=== PATIENT | male | born 1960 | race Caucasian/White ===

== ENCOUNTER 2024-11-02 12:06 | Emergency (ER) | payer MEDICAID, SELFPAY ==
[2024-11-02 12:08] VITALS: BMI 28.0
[2024-11-02 12:46] VITALS: BP 189/99; PULSE 114; RESP 18; TEMP 37.2; O2SAT 96
--- NOTE | 2024-11-02 12:46 | PD.EDRME ---
Rapid Medical Screening Exam RME Arrival date/time: 11/02/24 12:06 64 yo m present to Ed for c/o of left leg/foot swelling/pain for 2 weeks I have greeted and performed a focused initial assessment of this patient. A comprehensive ED assessment and evaluation of the patient, analysis of all test results, and completion of the medical decision making process will be conducted by additional ED providers. Chief Complaint: General Adult/Misc Complain Time Seen by Provider: 11/02/24 12:10
--- NOTE | 2024-11-02 12:47 | XR_ITS ---
Examination: Duplex scan of the lower extremity, unilateral left complete Date and time of exam: November 02, 2024 1329 hrs. Indications: Nonhealing wounds on the leg 3 weeks gas Technique: Duplex scan of the extremity veins using B-mode/grayscale imaging and Doppler spectral analysis and color flow Attention is directed to internal echogenicity, compression and augmentation involving these veins, color flow assessment, spectral analysis Findings: Major deep venous structures in the extremity demonstrate normal course and caliber. There is no evidence of deep vein thrombosis. Normal color flow and spectral analysis Impression: Negative for DVT..
--- NOTE | 2024-11-02 12:47 | XR_ITS ---
Examination: Foot, left, 3 views Technique: AP, oblique, lateral views foot, 3 views Date and time of exam: November 02, 2024 1301 hrs. Indications: Left leg pain and swelling beginning 2 weeks ago. Findings: Prominent osteopenia Moderate osteoarthritis first metatarsophalangeal joint No fracture No roberto cortical bone destruction No opaque foreign body Impression: No roberto cortical bone destruction Diffuse soft tissue swelling about the foot
[2024-11-02 13:05] LABS: Lactate (Lactic Acid) 1.8 mMol/L (0.4-2.0)
[2024-11-02 13:11] LABS: Basophils # (Auto) 0.1 Thou/mm3 (0.0-0.2); Basophils % (Auto) 1 % (0-2.5); Eosinophils # (Auto) 0.1 Thou/mm3 (0.0-0.5); Eosinophils % (Auto) 1 % (0-10); Hematocrit 53.3 % (41.0-53.0); Hemoglobin 18.7 g/dL (13.5-16.0); Immature Granulocytes % (Auto) 0 % (0-0); Immature Granulocytes Auto 0.02 Thou/mm3 (0.00-0.00); Lymphocytes # (Auto) 1.8 Thou/mm3 (1.0-4.8); Lymphocytes % (Auto) 18 % (10-50); Mean Corpuscular HGB Conc 35.1 g/dl (31.0-37.0); Mean Corpuscular Hemoglobin 31.1 pg (25.0-35.0); Mean Corpuscular Volume 89 fL (80-100); Monocytes # (Auto) 0.8 Thou/mm3 (0.0-0.8); Monocytes % (Auto) 8 % (0-12); Neutrophils # (Auto) 7.4 Thou/mm3 (1.8-7.7); Neutrophils % (Auto) 73 % (37-80); Nucleated Red Blood Cell % 0 /100 WBC (0); Platelet Count 418 Thou/mm3 (140-440); RDW Standard Deviation 39.7 fL (35.1-43.9); Red Blood Count 6.01 Miln/mm3 (4.50-5.90); White Blood Count 10.2 Thou/mm3 (3.8-10.6)
[2024-11-02 13:28] LABS: Prothrombin Time 10.6 Seconds (9.0-12.2)
[2024-11-02 13:32] LABS: Sed Rate (ESR) 13 mm/hr (0-20)
[2024-11-02 13:48] LABS: Alanine Aminotransferase 31 U/L (10-49); Albumin, Serum 4.7 gm/dL (3.4-4.8); Albumin/Globulin Ratio 1.9 (1.2-2.2); Alkaline Phosphatase 56 U/L (46-116); Anion Gap 8 (7-16); Aspartate Amino Transferase 24 U/L (0-34); BUN/Creatinine Ratio 10 Ratio (12-20); Bilirubin,Total 0.4 mg/dL (0.3-1.2); Blood Urea Nitrogen 10 mg/dL (9-23); C-Reactive Protein < 0.4 mg/dL (0.0-0.9); Calcium 9.8 mg/dL (8.3-10.6); Calcium (Corrected) 9.8 mg/dL (8.5-10.1); Carbon Dioxide 25.7 mMol/L (20.0-31.0); Chloride 108 mMol/L (98-107); Estimated Creatinine Clearance 83.3 mL/min (>60); Globulin 2.5 gm/dL (2.3-3.5); Glucose 129 mg/dL (74-106); Osmolality,Calculated 284 (275-295); Potassium 4.4 mMol/L (3.4-5.1); Procalcitonin 0.06 ng/ml (0.0-0.49); Sodium 142 mMol/L (136-145); Total Protein 7.2 gm/dL (5.7-8.2); eGFR > 60 See Note
--- NOTE | 2024-11-02 13:53 | PD.EDADULT ---
ED General RME/HPI General Chief complaint: General Adult/Misc Complain Stated complaint: L) LEG W/ NERVE PAIN, SWELLING, REDNESS UP LEG Time Seen by Provider: 11/02/24 12:10 Arrival date/time: 11/02/24 12:06 RME / HPI RME / HPI narrative: Patient is a 64 years old male with no past medical history presented to the ED complaining of left foot swelling for 2 weeks. 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 He never walks barefoot. He denies any animal or insect bite. He denies any pain, changes in sensation, fever, chills. He also developed 2 small wounds on both sides of his foot which are tender to touch but there was no drainage. He developed this swelling all of the sudden and did not look for medical attention due to lack of symptoms. The swelling has worsened and he was not able to wear his shoe anymore. He does not have PCP and haven't seen a doctor for many years. He is active smoker for many years. Related Data Previous Rx's ?Medication ?Instructions ?Recorded cephalexin 500 mg capsule 500 mg PO QID cellulitis 5 days 11/02/24 #20 caps losartan 25 mg tablet 25 mg PO QDAY #30 tabs 11/02/24 Allergies Allergy/AdvReac Type Severity Reaction Status Date / Time SEA FOOD Allergy Uncoded 11/02/24 12:12 Review of Systems Review of Systems Systems Reviewed: All systems reviewed, normal except as documented ED Exam Narrative Physical exam: Gen: Well-developed and well-nourished male. HEENT: NCAT, PERRLA, EOMI, MMM, anicteric conjunctivae. CVS: normal S1 and S2. RRR. No M/R/G. Resp: CTA B/L. No rhonchi, rales, crackles or wheezing. Abd: soft, non-tender, non-distended. BS+ in all 4 quadrants. MSK: Good ROM in BUE & BLE. No edema or rash. Left foot appears swollen and erythematose, non-tender. 2 dry wounds on the side of his foot close to toes are tender to touch and no drainage on palpation. Neuro: CN II-XII grossly intact. Strength 5/5 in BUE & BLE. Alert and oriented x3. Psych: appropriate mood and affect. Course Quality Measures none Orders Category Date Time Status US venous doppler LE LT Stat Exams 11/02/24 12:47 Completed XR foot comp LT min 3V Stat Exams 11/02/24 12:47 Completed Blood Culture (Lab) Stat Lab 11/02/24 12:57 Received CBC Stat Lab 11/02/24 12:54 Completed CMP [Comprehensive Metabolic Panel] Stat Lab 11/02/24 12:54 Completed CRP [C-Reactive Protein] Stat Lab 11/02/24 12:54 Completed ESR [Sed Rate (ESR)] Stat Lab 11/02/24 12:54 Completed INR [Prothrombin Time with INR] Stat Lab 11/02/24 12:54 Completed Lactic Acid [Lactate (Lactic Acid)] Stat Lab 11/02/24 12:54 Completed Procalcitonin Stat Lab 11/02/24 12:54 Completed Vital Signs Vital signs: Vital Signs Temperature 99.0 F 11/02/24 12:46 Pulse Rate 114 H 11/02/24 12:46 Respiratory Rate 18 11/02/24 12:46 Blood Pressure 189/99 H 11/02/24 12:46 Pulse Oximetry (%) 96 11/02/24 12:46 Oxygen Delivery Method Room Air 11/02/24 12:46 MDM Patient data External records reviewed:: None Clinical information provided by:: patient Social determinants that could affect healthcare access:: none Patient has the following chronic illnesses:: none How is presenting disease/condition affected by chronic disease/condition?: no chronic disease Evaluation data The following diagnostics were reviewed and interpreted by me:: lab results and radiology exam(s) Lab and/or radiology exams considered but not ordered:: foot CT Interpretation Summary: Fibndings consistent with cellulites, no DVT. Medications Medications considered but not ordered:: none Medication administrations:: none Consultations Consultation(s) initiated? (list below): No Diagnosis Differential Diagnosis ED Complaint MDM: DVT, cellulitis, fungal infection, PAD Most likely diagnosis given after review of the tests above:: Cellulitis Admission Indicated Admission indicated?: not indicated Explain why admission is indicated or not indicated:: Patient is not septic and has localized disease in his foot, does not need to be admitted. Admission Request Was there a request for admission?: No Disposition Plan Disposition Plan: Discharge Discharge Attestation Discharge Attestation: The patient and all family members were given an opportunity to ask questions and understood the discharge instructions. Discharge instructions specifically effects, indications for sooner follow up or return to the emergency department, and the expected course of current diagnosis. Patient condition: Stable Medical Decision Making MDM Narrative MDM Narrative: Patient has local swelling and inflammation likely due to cellulites. Patient will need antibiotic treatment outpatient. He will also need to establish care with PCP since he was seen by the MD for many years. Patient was found to have significantly elevated BP and does not take any medications. His blood pressure stayed elevated during all ED course, highest 200/113 and lowest 151/99. We will start him on losartan. Differential Diagnosis Differential Diagnosis: DVT, cellulitis, fungal infection, PAD Lab Data 11/02/24 12:54 11/02/24 12:54 Labs: Lab Results 11/02/24 Range/Units 12:54 WBC 10.2 (3.8-10.6) Thou/mm3 RBC 6.01 H (4.50-5.90) Miln/mm3 Hgb 18.7 H* (13.5-16.0) g/dL Hct 53.3 H (41.0-53.0) % MCV 89 (80-100) fL MCH 31.1 (25.0-35.0) pg MCHC 35.1 (31.0-37.0) g/dl RDW Std Deviation 39.7 (35.1-43.9) fL Plt Count 418 (140-440) Thou/mm3 Neut % (Auto) 73 (37-80) % Lymph % (Auto) 18 (10-50) % [place] % (Auto) 8 (0-12) % Eos % (Auto) 1 (0-10) % Baso % (Auto) 1 (0-2.5) % Neut # (Auto) 7.4 (1.8-7.7) Thou/mm3 Lymph # (Auto) 1.8 (1.0-4.8) Thou/mm3 [place] # (Auto) 0.8 (0.0-0.8) Thou/mm3 Eos # (Auto) 0.1 (0.0-0.5) Thou/mm3 Baso # (Auto) 0.1 (0.0-0.2) Thou/mm3 Immature Gran # (Auto) 0.02 H (0.00-0.00) Thou/mm3 Absolute Nucleated RBC 0.00 (0.00-0.00) Thou/mm3 Immature Gran % 0 (0-0) % Nucleated RBC % 0 (0) /100 WBC ESR 13 (0-20) mm/hr PT 10.6 (9.0-12.2) Seconds INR 1.0 (0.9-1.3) Sodium 142 (136-145) mMol/L Potassium 4.4 (3.4-5.1) mMol/L Chloride 108 H (98-107) mMol/L Carbon Dioxide 25.7 (20.0-31.0) mMol/L Anion Gap 8 (7-16) BUN 10 (9-23) mg/dL Creatinine 1.0 (0.6-1.3) mg/dL Estim Creat Clear Calc 83.3 (>60) mL/min eGFR > 60 (60 - ) See Note BUN/Creatinine Ratio 10 L (12-20) Ratio Glucose 129 H (74-106) mg/dL Calculated Osmolality 284 (275-295) Lactic Acid 1.8 (0.4-2.0) mMol/L Calcium 9.8 (8.3-10.6) mg/dL Corrected Calcium 9.8 (8.5-10.1) mg/dL Total Bilirubin 0.4 (0.3-1.2) mg/dL AST 24 (0-34) U/L ALT 31 (10-49) U/L Alkaline Phosphatase 56 (46-116) U/L C-Reactive Prot, Quant < 0.4 (0.0-0.9) mg/dL Total Protein 7.2 (5.7-8.2) gm/dL Albumin 4.7 (3.4-4.8) gm/dL Globulin 2.5 (2.3-3.5) gm/dL Albumin/Globulin Ratio 1.9 (1.2-2.2) Procalcitonin 0.06 (0.0-0.49) ng/ml Discharge Plan Plan Patient Disposition: HOME (Self Care) Patient condition on transfer: Stable Prescriptions/Referrals Prescriptions/Med Rec: New cephalexin 500 mg capsule 500 mg PO QID 5 Days Qty: 20 0RF losartan 25 mg tablet 25 mg PO QDAY Qty: 30 0RF Referrals: No Primary/Family,Physician [Primary Care Provider] - In 1 week Problem List Clinical Impression: Cellulitis Patient/Caregiver Discharge Instructions Education Materials: ED Cellulitis Additional Instructions: Take cephalexin 500 mg 4 times a day for 5 days. Start taking losartan 25 mg daily for hypertension. Check your blood pressure at home at least daily and record it. Follow up with PCP within 2 weeks. If you don't have a PCP, you can make an appointment at the [facility]: [address] [place] [phone] Return to the ED if symptoms recur or worsen. Print Language: Japanese Stand Alone Forms: Sara Award Info., Patient Portal Info Letter
[2024-11-02 14:15] VITALS: BP 118/112; BP 200/113; PULSE 114; RESP 18; TEMP 36.6; O2SAT 95
[2024-11-02 15:44] VITALS: BP 167/118; PULSE 101; RESP 16; TEMP 36.9; O2SAT 94
[2024-11-02 16:39] VITALS: BP 151/99; PULSE 99; RESP 18; TEMP 36.6; O2SAT 97
== END 2024-11-02 16:40 | disposition home or self-care (01) ==
PROVIDERS: Physician Assistant; Emergency Provider Emergency Medicine
DX: L03.116 Cellulitis of left lower limb (principal)
CPT/HCPCS: 36415; 73630; 80053; 83605; 84145; 85025; 85610; 85652; 86140; 87040; 93971; 99284

== ENCOUNTER 2024-11-07 11:01 | Outpatient (AMB) | payer MEDICAID, SELFPAY ==
[2024-11-07 11:10] VITALS: BP 177/102; PULSE 118; RESP 16; TEMP 36.7; O2SAT 95; BMI 29.1
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
== END 2024-11-07 11:57 | disposition home or self-care (01) ==
LOC: HODAHC 11:01
PROVIDERS: Supervising Provider Internal Medicine; Visit Provider Student in an Organized Health Care Education/Training Program
DX: L03.116 Cellulitis of left lower limb (principal); L02.612 Cutaneous abscess of left foot; I10 Essential (primary) hypertension; F17.210 Nicotine dependence, cigarettes, uncomplicated; Z71.6 Tobacco abuse counseling
CPT/HCPCS: 99213; G0463

== ENCOUNTER 2024-11-14 10:29 | Outpatient (AMB) | payer MEDICAID, SELFPAY ==
[2024-11-14 10:46] VITALS: BP 154/92; PULSE 102; RESP 16; TEMP 37.1; O2SAT 95; BMI 29.0
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
== END 2024-11-14 11:30 | disposition home or self-care (01) ==
LOC: HODAHC 10:29
PROVIDERS: PCP Student in an Organized Health Care Education/Training Program; Referring Provider Student in an Organized Health Care Education/Training Program; Supervising Provider Internal Medicine; Visit Provider Student in an Organized Health Care Education/Training Program
DX: L03.116 Cellulitis of left lower limb (principal); L02.612 Cutaneous abscess of left foot; S91.352A Open bite, left foot, initial encounter; W55.01XA Bitten by cat, initial encounter; I10 Essential (primary) hypertension; F17.200 Nicotine dependence, unspecified, uncomplicated; Z71.6 Tobacco abuse counseling
CPT/HCPCS: 99213; G0463

== ENCOUNTER 2024-11-14 11:41 | Inpatient (IN) | payer MEDICAID, SELFPAY ==
[2024-11-14] VITALS (9 sets, daily range): BP systolic 154–192; BP diastolic 81–103; PULSE 71–115; RESP 14–18; TEMP 36.1–36.8; O2SAT 94–98; BMI 26.5; BMI 28.3
--- NOTE | 2024-11-14 11:46 | XR_ITS ---
EXAMINATION: XR foot comp LT min 3V ORDERING PROVIDER: Neto Benitez NP HISTORY: ck for signs of osteo TECHNIQUE: 3 radiographs of the left foot were obtained. COMPARISON: 11/02/2024, left foot radiographs. FINDINGS: No acute fracture or dislocation. Moderate degenerative changes great toe metatarsophalangeal joint again seen with joint space narrowing and subchondral sclerosis/cyst formation. Worsened moderate to severe dorsal forefoot soft tissue swelling. No subcutaneous emphysema. No radiopaque foreign object. IMPRESSION: Progressed soft tissue tissue swelling without acute bony findings. MR versus bone scan available as clinically indicated.
--- NOTE | 2024-11-14 11:46 | XR_ITS ---
EXAMINATION: US venous doppler LE LT HISTORY: Left foot pain and swelling x5 weeks. COMPARISON: 11/02/2024, lower extremity venous duplex. FINDINGS: Jacques scale, color doppler, and spectral waveforms of the left lower extremity veins. The imaged veins are unremarkable without evidence of internal thrombus. Spectral Doppler imaging demonstrates normal wave forms. The overlying soft tissues are unremarkable. Atherosclerotic plaque seen in the popliteal artery. IMPRESSION: Negative for left lower extremity deep venous thrombosis.
--- NOTE | 2024-11-14 11:54 | PD.EDRME ---
Rapid Medical Screening Exam [facility] Arrival date/time: 11/14/24 11:41 CC: Infected left foot HPI patient had a history of an infected foot prior to this and then 2 days ago his cat scratched his foot this morning the patient stated the foot now has become red and irritated. Patient is referred from resident clinic for concern that there may be early osteomyelitis. Recommending workup for the foot. Chief Complaint: Skin/Abscess/Foreign Body Time Seen by Provider: 11/14/24 11:46 Vital signs: Vital Signs Temperature 98.3 F 11/14/24 11:49 Pulse Rate 115 H 11/14/24 11:49 Respiratory Rate 17 11/14/24 11:49 Blood Pressure 160/93 H 11/14/24 11:49 Pulse Oximetry (%) 96 11/14/24 11:49 Oxygen Delivery Method Room Air 11/14/24 11:49
[2024-11-14 12:27] LABS: Basophils # (Auto) 0.1 Thou/mm3 (0.0-0.2); Basophils % (Auto) 1 % (0-2.5); Eosinophils # (Auto) 0.1 Thou/mm3 (0.0-0.5); Eosinophils % (Auto) 1 % (0-10); Hematocrit 51.5 % (41.0-53.0); Immature Granulocytes % (Auto) 0 % (0-0); Immature Granulocytes Auto 0.02 Thou/mm3 (0.00-0.00); Lymphocytes # (Auto) 2.1 Thou/mm3 (1.0-4.8); Lymphocytes % (Auto) 23 % (10-50); Mean Corpuscular Volume 89 fL (80-100); Monocytes # (Auto) 0.7 Thou/mm3 (0.0-0.8); Monocytes % (Auto) 8 % (0-12); Neutrophils # (Auto) 5.9 Thou/mm3 (1.8-7.7); Neutrophils % (Auto) 66 % (37-80); Nucleated Red Blood Cell % 0 /100 WBC (0); Platelet Count 414 Thou/mm3 (140-440); RDW Standard Deviation 39.8 fL (35.1-43.9); Red Blood Count 5.81 Miln/mm3 (4.50-5.90); White Blood Count 8.9 Thou/mm3 (3.8-10.6)
[2024-11-14 12:44] LABS: Sed Rate (ESR) 12 mm/hr (0-20)
[2024-11-14 13:05] LABS: Alanine Aminotransferase 39 U/L (10-49); Albumin, Serum 4.4 gm/dL (3.4-4.8); Albumin/Globulin Ratio 1.8 (1.2-2.2); Alkaline Phosphatase 55 U/L (46-116); Anion Gap 9 (7-16); Aspartate Amino Transferase 23 U/L (0-34); BUN/Creatinine Ratio 11 Ratio (12-20); Bilirubin,Total 0.4 mg/dL (0.3-1.2); Blood Urea Nitrogen 11 mg/dL (9-23); C-Reactive Protein < 0.5 mg/dL (0.0-0.9); Calcium 9.4 mg/dL (8.3-10.6); Calcium (Corrected) 9.4 mg/dL (8.5-10.1); Carbon Dioxide 24.6 mMol/L (20.0-31.0); Chloride 107 mMol/L (98-107); Globulin 2.5 gm/dL (2.3-3.5); Glucose 108 mg/dL (74-106); Osmolality,Calculated 281 (275-295); Potassium 3.5 mMol/L (3.4-5.1); Procalcitonin 0.08 ng/ml (0.0-0.49); Sodium 141 mMol/L (136-145); Total Protein 6.9 gm/dL (5.7-8.2); eGFR > 60 See Note
--- NOTE | 2024-11-14 14:02 | PD.EDEXREM ---
ED Extremity Problem RME/HPI General Chief complaint: Skin/Abscess/Foreign Body Stated complaint: SWELLING TO LEFT FOOT Time Seen by Provider: 11/14/24 11:46 Arrival date/time: 11/14/24 11:41 Limitations: no limitations RME / HPI RME / HPI Narrative: 11/14/24 11:41 CC: Infected left foot HPI patient had a history of an infected foot prior to this and then 2 days ago his cat scratched his foot this morning the patient stated the foot now has become red and irritated. Patient is referred from resident clinic for concern that there may be early osteomyelitis. Recommending workup for the foot. DR. VELAZCO MAIN ED EVALUATION: 64 year old male with history of hypertension presents to the ED for left foot swelling and pain. Patient reports about 1 month ago he slipped and fell while walking in his home. States he initially did not seek medical attention until 2 weeks ago when he noted redness and swelling. Was evaluated here 11/02/2024 where the work-up was negative for DVT and discharged home diagnosed with cellulitis, prescribed 5 day course of Cephalexin. States he completed the antibiotics with no improvement and followed up with PCP on 11/07/2024 where he was started on Cephalexin and Doxycycline for 7 more days. Patient states the pain, redness, and swelling have worsened in spite of taking multiple rounds of antibiotics. Additionally reported his cat scratched one of his toes 2 days ago. Denies any fevers, chills, or pain to his calf. No hx of DVT. Related Data Previous Rx's ?Medication ?Instructions ?Recorded losartan 25 mg tablet 25 mg PO QDAY #30 tabs 11/02/24 doxycycline hyclate 100 mg capsule 100 mg PO BID #14 caps 11/07/24 Allergies Allergy/AdvReac Type Severity Reaction Status Date / Time SEA FOOD Allergy Uncoded 11/14/24 11:46 Review of Systems Review of Systems Narrative Review of Systems: GEN: No fever, no chills, no weight loss EYES: No discharge, no visual changes, no pain HEENT: No ear pain, no congestion, no sore throat PULM: No shortness of breath, no cough, no congestion CV: No chest pain, no dyspnea on exertion, no palpitations GI: No nausea, no vomiting, no diarrhea, no pain, no constipation : No frequency, no urgency, no dysuria MUSC/SKEL: +left foot redness/pain/swelling, no back pain SKIN: +left foot redness NEURO: No weakness, no headache Past Medical History Past Medical History CARDIAC: Negative Congestive Heart Failure RESPIRATORY: Negative Chronic Obstructive Pulmonary Disease (COPD) GENITOURINARY: Negative Renal Disease ENDOCRINE: Negative Diabetes Mellitus Type 1 or Diabetes Mellitus Type 2 Social History SMOKING STATUS: Heavy (> 1 pack/day) ED Exam General Limitations: Present no limitations General appearance: Present alert and in no apparent distress Head Head exam: Present atraumatic, normocephalic and normal inspection Eye Eye exam: Present normal appearance and EOMI ENT ENT exam: Present normal exam, normal oropharynx and mucous membranes moist Neck Neck exam: Present normal inspection, full ROM and trachea midline Chest Chest inspection: Present normal inspection and symmetric chest wall rise Respiratory Respiratory exam: Present normal lung sounds bilaterally Cardiovascular Cardiovascular exam: Present regular rate, normal rhythm and normal heart sounds Abdominal Exam Abdominal exam: Present soft and normal bowel sounds Extremities Exam Extremities exam: Present full ROM and other (Left leg with mild erythema about half way up to the knee, no tenderness to palpation, negative Sue's sign, bright red erythema 2+ edema left foot, scabs to medial and distal sides of foot that is dry (there could be exudate under scab but not obvious), scratches to 3rd 4th toes (cat scratch)) Back Exam Back exam: Present normal inspection and full ROM Neurological Exam Neurological exam: Present alert, oriented X3 and CN II-XII intact Psychiatric Psychiatric exam: Present normal affect and normal mood Skin Skin exam: Present warm, dry and intact Course Quality Measures none Orders Category Date Time Status COVID-19 Screening Questionnaire NOW Care 11/14/24 15:24 Active Decision to Admit X1 Care 11/14/24 15:24 Active Insert IV NOW Care 11/14/24 14:42 Active Saline [Insert IV] NOW Care 11/14/24 11:46 Active Wound Care X1 Care 11/14/24 14:40 Active EKG (ED Only) Stat Exams 11/14/24 14:41 Stop Req US venous doppler LE LT Stat Exams 11/14/24 11:46 Completed XR foot comp LT min 3V Stat Exams 11/14/24 11:46 Completed Blood Culture (Lab) Stat Lab 11/14/24 14:47 Ordered CBC Stat Lab 11/14/24 12:11 Completed CMP [Comprehensive Metabolic Panel] Stat Lab 11/14/24 12:11 Completed CRP [C-Reactive Protein] Stat Lab 11/14/24 12:11 Completed ESR [Sed Rate (ESR)] Stat Lab 11/14/24 12:11 Completed Lactic Acid [Lactate (Lactic Acid)] Stat Lab 11/14/24 12:11 Completed Partial Thromboplastin Time Stat Lab 11/14/24 12:11 Completed Procalcitonin Stat Lab 11/14/24 12:11 Completed Prothrombin Time with INR Stat Lab 11/14/24 12:11 Completed Urinalysis Stat Lab 11/14/24 14:41 Ordered Wound Culture and Gram Stain Stat Lab 11/14/24 14:43 Ordered Ketorolac Inj [Toradol Inj] Med 11/14/24 14:40 Discontinued 30 mg IVP X1 ONE Piper/Tazo 3.375 gm Premix [Zosyn] Med 11/14/24 14:47 Discontinued 3.375 gm in 50 ml IV X1 Sodium Chloride 0.9% 1000 ml [Ns] 1,000 ml Med 11/14/24 14:40 Pending IV 100 mls/hr Vancomycin/Ns 1 gm Ivpb 200 ml Med 11/14/24 14:40 Active IV X1 Vital Signs Vital signs: Vital Signs Temperature 98.3 F 11/14/24 11:49 Pulse Rate 115 H 11/14/24 11:49 Respiratory Rate 17 11/14/24 11:49 Blood Pressure 160/93 H 11/14/24 11:49 Pulse Oximetry (%) 96 11/14/24 11:49 Oxygen Delivery Method Room Air 11/14/24 11:49 Pulse ox is 96% on room air which is adequate. Extremity Problem MDM Narrative MDM Narrative:: Martha Gordon am scribing for and in the presence of Dr. Velazco. Patient data External records reviewed:: [facility] previous records (I reviewed ED visit on 11/02/24 and outpatient pcp visits on 11/07/24 and 11/14/2024 ) Clinical information provided by:: patient Social determinants that could affect healthcare access:: none Patient has the following chronic illnesses:: hypertension How is presenting disease/condition affected by chronic disease/condition?: uneffected by Evaluation data The following diagnostics were reviewed and interpreted by me:: lab results and radiology exam(s) Lab and/or radiology exams considered but not ordered:: None Interpretation Summary: Ordering Physician: Neto Benitez NP Date of Service: 11/14/24 Procedure(s): XR foot comp LT min 3V Accession Number(s): [id number] cc: Alejo Willett MD; Neto Benitez NP; Kevin Sun MD~ EXAMINATION: XR foot comp LT min 3V ORDERING PROVIDER: Neto Benitez NP HISTORY: ck for signs of osteo TECHNIQUE: 3 radiographs of the left foot were obtained. COMPARISON: 11/02/2024, left foot radiographs. FINDINGS: No acute fracture or dislocation. Moderate degenerative changes great toe metatarsophalangeal joint again seen with joint space narrowing and subchondral sclerosis/cyst formation. Worsened moderate to severe dorsal forefoot soft tissue swelling. No subcutaneous emphysema. No radiopaque foreign object. IMPRESSION: Progressed soft tissue tissue swelling without acute bony findings. MR versus bone scan available as clinically indicated. Dictated By: Alejo Willett MD Signed By: <Electronically signed by Alejo Willett MD in OV> 11/14/24 1241 Ordering Physician: Neto Benitez NP Date of Service: 11/14/24 Procedure(s): US venous doppler LE LT Accession Number(s): [id number] cc: Alejo Willett MD; Neto Benitez NP; Kevin Sun MD~ EXAMINATION: US venous doppler LE LT HISTORY: Left foot pain and swelling x5 weeks. COMPARISON: 11/02/2024, lower extremity venous duplex. FINDINGS: Jacques scale, color doppler, and spectral waveforms of the left lower extremity veins. The imaged veins are unremarkable without evidence of internal thrombus. Spectral Doppler imaging demonstrates normal wave forms. The overlying soft tissues are unremarkable. Atherosclerotic plaque seen in the popliteal artery. IMPRESSION: Negative for left lower extremity deep venous thrombosis. Dictated By: Alejo Willett MD Signed By: <Electronically signed by Alejo Willett MD in OV> 11/14/24 4209 Medications / Prescriptions Medications or Prescriptions considered but not ordered:: None Medication administrations:: Medication Administration History Sodium Chloride (Ns) 1,000 mls @ 100 mls/hr IV .Q10H ONE Vancomycin/Sodium Chloride (Vancomycin/Ns 1 Gm Ivpb) 200 mls @ 120 mls/hr IV X1 ONE Stop: 11/14/24 16:19 Discontinued Medications Piperacillin/Tazobactam/Dextrose (Zosyn) 3.375 gm in 50 mls @ 100 mls/hr IV X1 ONE Stop: 11/14/24 15:16 Ketorolac Tromethamine (Ketorolac Inj 30 Mg/Ml Vial) 30 mg IVP X1 ONE Stop: 11/14/24 14:41 See above Consultations Consultation(s) initiated? (list below): Yes Consultation #1 (Physician, Specialty, Details): I spoke with resident Dr. Pena working with Dr. Calabrese. Discussed patients PMHx, HPI, ED course, exam findings, labs, and radiology results. The hospitalist agree to accept the patient for admission. Diagnosis Extremity Problem Differential Diagnosis: gout, cellulitis, superficial thrombophlebitis, lower extremity edema and deep vein thrombosis of lower extremity Most likely diagnosis given after review of the tests above:: Left leg and foot cellulitis Failed abx outpatient therapy hypertension Admission Indicated Admission indicated?: indicated Admission Request Was there a request for admission?: Yes Admission Attestation Admission request attestation: Discussed case with [] from Hospitalist service regarding admission. Discussed patients ED course, exam findings, labs, and radiology results. The Hospitalist [agrees,declines] to accept the patient for admission. Disposition Plan Disposition Plan: Admit Discharge Plan Plan Patient Disposition: Admit Acute Care w/in Hospital Prescriptions/Referrals Prescriptions/Med Rec: No Action doxycycline hyclate 100 mg capsule 100 mg PO BID Qty: 14 0RF losartan 25 mg tablet 25 mg PO QDAY Qty: 30 0RF Referrals: Kevin Sun MD [Primary Care Provider] - In 1 week Problem List Clinical Impression: Cellulitis of left leg, Hypertension, Cellulitis of left foot Impression comment: Failed outpatient antibiotic therapy Patient/Caregiver Discharge Instructions Print Language: Albanian Stand Alone Forms: [employer] Award Info., Patient Portal Info Letter
[2024-11-14 15:12] LABS: Partial Thromboplastin Time 28.4 Seconds (22.0-36.0); Prothrombin Time 10.9 Seconds (9.0-12.2)
--- NOTE | 2024-11-14 16:02 | ESHP_ITS ---
Documentation for date of: 11/14/24 HPI History of Present Illness Chief complaint: Left lower extremity pain History of present illness: 64-year-old male current smoker with past medical history of hypertension who presented to the ED from the [facility] due to left lower extremity pain and swelling. Patient reports getting a cut on the left lower extremity about a month ago that progressively became swollen and red and painful. Approximately 1 week ago patient was seen in the [facility] and was given 1 week course of doxycycline. Patient was seen again today in the [facility] found that swelling and redness had not improved and was sent to the ED. Patient's last tetanus shot was in 1993. Patient denies fever, chills, nausea, vomiting, diarrhea, shortness of breath, chest pain, abdominal pain, recent travel, sick contacts. Patient will be admitted for management of cellulitis after failing outpatient antibiotic therapy. ED course: Vitals significant for blood pressure 160/93, HR 115, respiratory rate 17, temperature 98.3, saturating 96% on room air. Labs significant for hemoglobin of 18, glucose 108, procalcitonin negative, lactic negative CRP negative. Foot x-ray shows worsening moderate to severe dorsal forefoot soft tissue swelling. Lower extremity venous Doppler was negative for any DVT. PMHx: As above SxHx: None Social Hx: Current 1 pack/day smoker. Denies alcohol use, denies illicit substances FHx: Unknown Review of Systems Review of Systems Narrative Review of Systems: Narrative ROS GENERAL: Denies fevers/chills or diaphoresis. HEENT: Denies headache or visual/hearing changes. Denies nasal discharge. NEURO: Denies unusual weakness or difficulty speaking. CARDIO: Denies chest pain or palpitations. PULM: Denies SOB, coughing, or wheezing. GI: Denies abdominal pain, N/V/C/D/reflux/gas, bright red blood per rectum or melena. Reports having BMs. URO: Denies burning/itching/pain/urinary changes. 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 MSK/EXT/SKIN: LLE pain, denies itchiness PSYCH: Cooperative, pleasant mood & affect. The rest of the review of systems is otherwise negative. Exam Vital Signs Temp Pulse Resp BP Pulse Ox O2 Del Method 98.3 F 115 H 17 160/93 H 96 Room Air 11/14/24 11:49 11/14/24 11:49 11/14/24 11:49 11/14/24 11:49 11/14/24 11:49 11/14/24 11:49 Narrative Exam Physical Exam GENERAL: NAD, AAOx3 HEENT: Moist mucosa. Eyes open, symmetrical, & clear CARDIO: Heart RRR, no obvious murmurs PULM: No noted coughing/dyspnea CTA B/L, no R/W/R GI: Abdomen soft, nondistended, no pain on palpation. BSx4 SKIN/MSK/EXT: Left lower extremity pain and swelling with redness more pronounced on the metatarsals. Pedal pulses present B/L NEURO: AAOx3, no focal neuro deficits, able to move all 4 extremities Results: Labs 11/14/24 12:11 11/14/24 12:11 Labs: Short CBC 11/14/24 Range/Units 12:11 WBC 8.9 (3.8-10.6) Thou/mm3 Hgb 18.0 H* (13.5-16.0) g/dL Hct 51.5 (41.0-53.0) % Plt Count 414 (140-440) Thou/mm3 BMP 11/14/24 12:11 Sodium 141 Potassium 3.5 Chloride 107 Carbon Dioxide 24.6 BUN 11 Creatinine 1.0 Glucose 108 H Calcium 9.4 Liver Function 11/14/24 Range/Units 12:11 Total Bilirubin 0.4 (0.3-1.2) mg/dL AST 23 (0-34) U/L ALT 39 (10-49) U/L Alkaline Phosphatase 55 (46-116) U/L Albumin 4.4 (3.4-4.8) gm/dL Quality Measures Quality Measures none Medications Home Medications and Allergies Allergies Allergy/AdvReac Type Severity Reaction Status Date / Time SEA FOOD Allergy Uncoded 11/14/24 11:46 Visit Medications Acetaminophen (Acetaminophen 325 Mg Tablet) 650 mg PO Q6H PRN PRN Reason: Fever >101.5 Stop: 12/14/24 15:57 Acetaminophen (Acetaminophen 325 Mg Tablet) 650 mg PO Q6H PRN PRN Reason: PAIN SCALE 1-3 (mild Stop: 12/14/24 15:57 Sodium Chloride (Ns) 1,000 mls @ 100 mls/hr IV .Q10H ONE Vancomycin/Sodium Chloride (Vancomycin/Ns 1 Gm Ivpb) 200 mls @ 120 mls/hr IV X1 ONE Stop: 11/14/24 16:19 Ceftriaxone Sodium 1,000 mg/ (Sodium Chloride) 50 mls @ 100 mls/hr IV QDAY DAIVD Stop: 11/21/24 16:00 Ondansetron HCl (Ondansetron Inj 2 Mg/Ml Inj 2 Ml) 4 mg IV Q6H PRN; Protocol PRN Reason: NAUSEA OR VOMITING Stop: 12/14/24 15:57 Pharmacy Consult (Vancomycin Pharmacy To Dose 1 Each Each) 1 each IV QDAY DAVID Stop: 12/15/24 08:59 Sennosides (Senna Tablet) 1 tab PO QDAY DAVID; Protocol Stop: 12/15/24 08:59 Discontinued Medications Piperacillin/Tazobactam/Dextrose (Zosyn) 3.375 gm in 50 mls @ 100 mls/hr IV X1 ONE Stop: 11/14/24 15:16 Sodium Chloride (Ns) 1,000 mls @ 75 mls/hr IV .[id number] DAVID Stop: 12/14/24 15:59 Ketorolac Tromethamine (Ketorolac Inj 30 Mg/Ml Vial) 30 mg IVP X1 ONE Stop: 11/14/24 14:41 Assessment & Plan Plan 64-year-old male current smoker with past medical history of hypertension who presented to the ED from the [facility] due to failing outpatient antibiotic therapy for left lower extremity cellulitis. #Left lower extremity cellulitis Patient reports getting a cut on the left lower extremity about a month ago that progressively became swollen and red and painful. Approximately 1 week ago patient was seen in the [facility] and was given 1 week course of doxycycline, however has not improved since then. Patient's last tetanus shot was in 1993. Foot XR shows Progressed soft tissue tissue swelling without acute bony findings. MR versus bone scan available as clinically indicated. Venous duplex of lower extremity negative for DVT ? On vancomycin ? On ceftriaxone ? Blood cultures ordered ? wound culture and gram stain ordered ? 1 L NS at maintenance rate ? Tetanus shot ordered #Hypertension Systolic blood pressure 160 ? resumed losartan 25mg qday #Tobacco use Patient is a current 1 pack/day smoker ? Nicotine patch provided. Case discussed with my attending Dr. Guanakito Bob MD PGY-1 Disposition: Medtele Fluids: NS Feeding: Regular Thrombo prophylaxis: SCDs Gastric Ulcer prophylaxis: none CODE STATUS: Full code Attending Provider Attestation/Addendum I attest that I was physically present for the evaluation, physical examination, lab and imaging review of the patient with the residents. I discussed the case with the residents and agree with the findings and plans of care as documented above. Patient is a 64 years old male with past medical history of hypertension who presented to the ED with complaint of left lower limb pain and swelling. Patient had a cut on his left foot about a month ago following which he started having swelling, redness and pain. [facility] a [facility] about a week ago and was prescribed a course of doxycycline. Even after the doxycycline, patient's redness, pain and swelling persisted. He had a follow-up visit today at the clinic and was sent to the ED. In the ED, his blood pressure was 160/93 and pulse 115, rest of the vitals were within normal limits. Doppler ultrasound was done which was negative for any DVT. We will admit the patient for management of left leg/foot cellulitis with outpatient treatment failure. We will start him on IV vancomycin and Rocephin, IV hydration, analgesics and wound care. We will obtain wound culture, blood cultures. Resumed his home medication for high blood pressure and nicotine patch for tobacco withdrawal. Misbah Calabrese MD
[2024-11-14] MEDS: cefTRIAXone 1,000 MG in SODIUM CHLORIDE 0.9% (Popper) 50 ML 100 MG IV (19:57)
[2024-11-14] MEDS: KETOROLAC INJ 30 MG/ML VIAL IVP (19:58)
[2024-11-14] MEDS: PIPER/TAZO 3.375 GM PREMIX 3.375 GM/50 ML BAG IV (19:59)
[2024-11-14] MEDS: ONDANSETRON INJ 2 MG/ML INJ 2 ML 4 MG IV (19:59)
[2024-11-14] MEDS: TETANUS,DIPHTHERIA TOXOIDS/PF (ADULT) 0.5 ML SYRINGE IMi (20:00)
[2024-11-14] MEDS: LOSARTAN POTASSIUM 25 MG TABLET PO (20:05)
[2024-11-14] MEDS: SODIUM CHLORIDE 0.9% 1000 ML 1,000 ML 75 ML IV (20:30)
[2024-11-14] MEDS: VANCOMYCIN/NS 1 GM IVPB 200 ML IV (21:57)
--- NOTE | 2024-11-14 22:19 | PC.NURSE ---
report called to floor ELISABETH Reyes. Pt taken to rm [id number]
[2024-11-14] MEDS: ACETAMINOPHEN 325 MG TABLET 650 MG PO (22:48)
[2024-11-15] VITALS (7 sets, daily range): BP systolic 143–164; BP diastolic 78–92; PULSE 75–80; RESP 18; TEMP 36.3–36.6; O2SAT 96–98
--- NOTE | 2024-11-15 00:17 | PC.NURSE ---
MT reported that pt had 4 runs of PVCs, Dr. Aranda was made aware. No new orders for pt at this time.
[2024-11-15 05:59] LABS: Basophils # (Auto) 0.1 Thou/mm3 (0.0-0.2); Basophils % (Auto) 1 % (0-2.5); Eosinophils # (Auto) 0.2 Thou/mm3 (0.0-0.5); Eosinophils % (Auto) 2 % (0-10); Hematocrit 45.3 % (41.0-53.0); Hemoglobin 15.8 g/dL (13.5-16.0); Immature Granulocytes % (Auto) 0 % (0-0); Immature Granulocytes Auto 0.02 Thou/mm3 (0.00-0.00); Lymphocytes # (Auto) 2.4 Thou/mm3 (1.0-4.8); Lymphocytes % (Auto) 30 % (10-50); Mean Corpuscular HGB Conc 34.9 g/dl (31.0-37.0); Mean Corpuscular Volume 89 fL (80-100); Monocytes # (Auto) 0.6 Thou/mm3 (0.0-0.8); Monocytes % (Auto) 8 % (0-12); Neutrophils # (Auto) 4.5 Thou/mm3 (1.8-7.7); Neutrophils % (Auto) 58 % (37-80); Nucleated Red Blood Cell % 0 /100 WBC (0); Platelet Count 344 Thou/mm3 (140-440); RDW Standard Deviation 39.6 fL (35.1-43.9); Red Blood Count 5.09 Miln/mm3 (4.50-5.90); White Blood Count 7.8 Thou/mm3 (3.8-10.6)
[2024-11-15 06:33] LABS: Alanine Aminotransferase 33 U/L (10-49); Albumin, Serum 3.7 gm/dL (3.4-4.8); Albumin/Globulin Ratio 1.9 (1.2-2.2); Alkaline Phosphatase 43 U/L (46-116); Anion Gap 8 (7-16); Aspartate Amino Transferase 18 U/L (0-34); BUN/Creatinine Ratio 14 Ratio (12-20); Bilirubin,Total 0.5 mg/dL (0.3-1.2); Blood Urea Nitrogen 10 mg/dL (9-23); Calcium 8.7 mg/dL (8.3-10.6); Calcium (Corrected) 8.9 mg/dL (8.5-10.1); Carbon Dioxide 25.4 mMol/L (20.0-31.0); Cardiac Risk Estimate 3.6 RATIO (4.0-6.7); Chloride 111 mMol/L (98-107); Cholesterol 120 mg/dL (132-200); Creatinine (Component) 0.7 mg/dL (0.6-1.3); Estimated Creatinine Clearance 123.1 mL/min (>60); Glucose 98 mg/dL (74-106); HDL Cholesterol 33 mg/dL (40-60); LDL Cholesterol,Calculated 66 mg/dL (0-130); Magnesium 1.9 mg/dL (1.6-2.6); Osmolality,Calculated 285 (275-295); Potassium 3.5 mMol/L (3.4-5.1); Sodium 144 mMol/L (136-145); Thyroid Stimulating Hormone 2.45 uIU/mL (0.55-4.78); Total Protein 5.7 gm/dL (5.7-8.2); Triglycerides 103 mg/dL (30-150); eGFR > 60 See Note
[2024-11-15] MEDS: cefTRIAXone 1,000 MG in SODIUM CHLORIDE 0.9% (Popper) 50 ML 100 MG IV (08:45)
[2024-11-15] MEDS: NICOTINE PATCH 21 MG/24 HR PATCH.TD24 TOP (08:45)
[2024-11-15] MEDS: LOSARTAN POTASSIUM 25 MG TABLET PO ×2 (08:46→16:51)
[2024-11-15 09:10] LABS: Collection Type, Urine Clean Catch
[2024-11-15 10:11] LABS: Bilirubin,Urine Negative (Negative); Blood,Urine Negative (Negative); Clarity,Urine Clear (Clear/Hazy); Color,Urine Lt-Yellow (Lt Yel-Yel); Glucose, Urine Negative (Negative); Ketones,Urine Trace (Negative); Leukocyte Esterase,Urine Negative (Negative); Nitrite,Urine Negative (Negative); Protein,Urine Negative (Neg - Trace); RBC,Urine 1 /hpf (0-3); Specific Gravity,Urine 1.019 (1.001-1.035); Squamous Epithelial Cell,Urine < 1 /hpf (0-5); Urobilinogen,Urine Negative mg/dL (0.0-1.0); WBC,Urine 1 /hpf (0-5)
[2024-11-15] MEDS: VANCOMYCIN/NS 1 GM IVPB 200 ML IV ×2 (10:13→21:33)
[2024-11-15] MEDS: ACETAMINOPHEN 325 MG TABLET 650 MG PO ×2 (10:14→16:56)
--- NOTE | 2024-11-15 14:43 | PC.SS ---
Rounding: IV ABX
--- NOTE | 2024-11-15 16:18 | ESPR_ITS ---
Documentation for date of: 11/15/24 Subjective Subjective Interval history: Patient seen today at the bedside fine awake, alert, oriented x 3. No overnight events reported. States incredible improvement in left lower extremity pain, redness and swelling. Vital signs stable at this time. Labs unremarkable. Will continue with IV antibiotic therapy. Anticipate discharge in the next 24- 48 hours. Exam Vital Signs Temp Pulse Resp BP Pulse Ox O2 Del Method 97.4 F 76 18 163/78 H 97 Room Air 11/15/24 12:00 11/15/24 12:00 11/15/24 12:00 11/15/24 12:00 11/15/24 12:00 11/15/24 12:00 Narrative Exam Physical Exam GENERAL: NAD, AAOx3 HEENT: Moist mucosa. Eyes open, symmetrical, & clear CARDIO: Heart RRR, no obvious murmurs PULM: No noted coughing/dyspnea CTA B/L, no R/W/R GI: Abdomen soft, nondistended, no pain on palpation. BSx4 SKIN/MSK/EXT: Left lower extremity pain and swelling with redness more pronounced on the metatarsals-improving. Pedal pulses present B/L NEURO: AAOx3, no focal neuro deficits, able to move all 4 extremities Objective Labs 11/15/24 05:19 11/15/24 05:19 Labs: Laboratory Results - last 24 hr 11/15/24 11/15/24 05:19 09:00 WBC 7.8 RBC 5.09 Hgb 15.8 D Hct 45.3 MCV 89 MCH 31.0 MCHC 34.9 RDW Std Deviation 39.6 Plt Count 344 D Neut % (Auto) 58 Lymph % (Auto) 30 [place] % (Auto) 8 Eos % (Auto) 2 Baso % (Auto) 1 Neut # (Auto) 4.5 Lymph # (Auto) 2.4 [place] # (Auto) 0.6 Eos # (Auto) 0.2 Baso # (Auto) 0.1 Immature Gran # (Auto) 0.02 H Absolute Nucleated RBC 0.00 Immature Gran % 0 Nucleated RBC % 0 Sodium 144 Potassium 3.5 Chloride 111 H Carbon Dioxide 25.4 Anion Gap 8 BUN 10 Creatinine 0.7 Estim Creat Clear Calc 123.1 eGFR > 60 BUN/Creatinine Ratio 14 Glucose 98 Calculated Osmolality 285 Calcium 8.7 Corrected Calcium 8.9 Phosphorus 3.0 Magnesium 1.9 Total Bilirubin 0.5 AST 18 ALT 33 Alkaline Phosphatase 43 L D Total Protein 5.7 Albumin 3.7 D Globulin 2.0 L Albumin/Globulin Ratio 1.9 Triglycerides 103 Cholesterol 120 L LDL Cholesterol, Calc 66 HDL Cholesterol 33 L Cholesterol/HDL Ratio 3.6 L TSH 2.45 Ur Collection Type Clean Catch Urine Color Lt-Yellow Urine Clarity Clear Urine pH 7.0 Ur Specific [place] 1.019 Urine Protein Negative Urine Glucose (UA) Negative Urine Ketones Trace Urine Blood Negative Urine Nitrite Negative Urine Bilirubin Negative Urine Urobilinogen (Auto) Negative Ur Leukocyte Esterase Negative Urine RBC 1 Urine WBC 1 Ur Squamous Epith Cells < 1 Urine Bacteria None Quality Measures Quality Measures none Assessment & Plan Assessment Current Active Medications: Generic Name Dose Route Start Last Admin Trade Name Freq PRN Reason Stop Dose Admin Acetaminophen 650 mg 11/14/24 15:58 Acetaminophen 325 Mg Tablet PO 12/14/24 15:57 Q6H PRN Fever >101.5 Acetaminophen 650 mg 11/14/24 15:58 11/15/24 10:14 Acetaminophen 325 Mg Tablet PO 12/14/24 15:57 650 mg Q6H PRN Administration PAIN SCALE 1-3 (mild Ceftriaxone Sodium 1,000 mg/ 50 mls @ 100 mls/hr 11/14/24 16:01 11/15/24 08:45 Sodium Chloride IV 11/21/24 16:00 100 mls/hr QDAY DAVID Administration Vancomycin/Sodium Chloride 200 mls @ 120 mls/hr 11/15/24 10:00 11/15/24 10:13 Vancomycin/Ns 1 Gm Ivpb IV 11/22/24 09:59 120 mls/hr Q12H DAVID Administration Losartan Potassium 25 mg 11/14/24 17:00 11/15/24 08:46 Losartan Potassium 25 Mg Tablet PO 12/14/24 16:59 25 mg QDAY DAVID Administration Nicotine 21 mg 11/15/24 09:00 11/15/24 08:45 Nicotine Patch 21 Mg/24 Hr Patch.Td24 TOP 12/15/24 08:59 21 mg QDAY DAVID Administration Ondansetron HCl 4 mg 11/14/24 15:58 11/14/24 19:59 Ondansetron Inj 2 Mg/Ml Inj 2 Ml IV 12/14/24 15:57 4 mg Q6H PRN Administration NAUSEA OR VOMITING Protocol Pharmacy Consult 1 each 11/15/24 09:00 Vancomycin Pharmacy To Dose 1 Each Each IV 12/15/24 08:59 QDAY PRN CONSULT Sennosides 1 tab 11/15/24 09:00 11/15/24 08:46 Senna Tablet PO 12/15/24 08:59 1 tab QDAY DAVID Administration Protocol Plan 64-year-old male current smoker with past medical history of hypertension who presented to the ED from the [facility] due to failing outpatient antibiotic therapy for left lower extremity cellulitis. #Left lower extremity cellulitis Patient reports getting a cut on the left lower extremity about a month ago that progressively became swollen and red and painful. Approximately 1 week ago patient was seen in the [facility] and was given 1 week course of doxycycline, however has not improved since then. Patient's last tetanus shot was in 1993. Foot XR shows Progressed soft tissue tissue swelling without acute bony findings. MR versus bone scan available as clinically indicated. Venous duplex of lower extremity negative for DVT 1 L NS at maintenance rate, Tetanus shot ordered ? On vancomycin ? On ceftriaxone ? Blood cultures ordered ? wound culture and gram stain pending #Hypertension Systolic blood pressure 160 ? resumed losartan 25mg qday, dose adjusted to 50mg #Tobacco use Patient is a current 1 pack/day smoker ? Nicotine patch provided. Case discussed with my attending Dr. Guanakito Bob MD PGY-1 Disposition: Medtele Fluids: NS Feeding: Regular Thrombo prophylaxis: SCDs Gastric Ulcer prophylaxis: none CODE STATUS: Full code Attending Provider Attestation/Addendum I attest that I was physically present for the evaluation, physical examination, lab and imaging review of the patient with the residents. I discussed the case with the residents and agree with the findings and plans of care as documented above. At bedside today, patient states he is feeling much better. His cellulitis and left lower limb swelling have improved significantly. Continues to be on IV Rocephin and vancomycin. Wound care has been following. Continues to be on nicotine patch and losartan for tobacco withdrawal and hypertension. Vital signs and lab results have been stable. Awaiting blood, wound culture results. Misbah Calabrese MD
[2024-11-16] VITALS (7 sets, daily range): BP systolic 142–169; BP diastolic 78–97; PULSE 70–76; RESP 18–20; TEMP 36.1–36.6; O2SAT 95–98
[2024-11-16] MEDS: ACETAMINOPHEN 325 MG TABLET 650 MG PO ×3 (03:41→19:36)
[2024-11-16 05:45] LABS: Basophils # (Auto) 0.1 Thou/mm3 (0.0-0.2); Basophils % (Auto) 1 % (0-2.5); Eosinophils # (Auto) 0.2 Thou/mm3 (0.0-0.5); Eosinophils % (Auto) 2 % (0-10); Hematocrit 44.4 % (41.0-53.0); Hemoglobin 15.4 g/dL (13.5-16.0); Immature Granulocytes % (Auto) 0 % (0-0); Immature Granulocytes Auto 0.02 Thou/mm3 (0.00-0.00); Lymphocytes # (Auto) 2.3 Thou/mm3 (1.0-4.8); Lymphocytes % (Auto) 29 % (10-50); Mean Corpuscular HGB Conc 34.7 g/dl (31.0-37.0); Mean Corpuscular Hemoglobin 31.4 pg (25.0-35.0); Mean Corpuscular Volume 90 fL (80-100); Monocytes # (Auto) 0.6 Thou/mm3 (0.0-0.8); Monocytes % (Auto) 8 % (0-12); Neutrophils # (Auto) 4.8 Thou/mm3 (1.8-7.7); Neutrophils % (Auto) 59 % (37-80); Nucleated Red Blood Cell % 0 /100 WBC (0); Platelet Count 325 Thou/mm3 (140-440); RDW Standard Deviation 40.1 fL (35.1-43.9); Red Blood Count 4.91 Miln/mm3 (4.50-5.90)
[2024-11-16 06:11] LABS: Alanine Aminotransferase 31 U/L (10-49); Albumin, Serum 3.7 gm/dL (3.4-4.8); Albumin/Globulin Ratio 1.9 (1.2-2.2); Alkaline Phosphatase 45 U/L (46-116); Anion Gap 8 (7-16); Aspartate Amino Transferase 20 U/L (0-34); BUN/Creatinine Ratio 14 Ratio (12-20); Bilirubin,Total 0.3 mg/dL (0.3-1.2); Blood Urea Nitrogen 10 mg/dL (9-23); Calcium 8.6 mg/dL (8.3-10.6); Calcium (Corrected) 8.8 mg/dL (8.5-10.1); Carbon Dioxide 25.4 mMol/L (20.0-31.0); Chloride 111 mMol/L (98-107); Creatinine (Component) 0.7 mg/dL (0.6-1.3); Estimated Creatinine Clearance 123.1 mL/min (>60); Glucose 108 mg/dL (74-106); Magnesium 2.1 mg/dL (1.6-2.6); Osmolality,Calculated 286 (275-295); Phosphorous 3.5 mg/dL (2.4-5.1); Potassium 3.8 mMol/L (3.4-5.1); Sodium 144 mMol/L (136-145); Total Protein 5.7 gm/dL (5.7-8.2); eGFR > 60 See Note
--- NOTE | 2024-11-16 07:24 | ESPR_ITS ---
Documentation for date of: 11/16/24 Subjective Subjective Interval history: Not overnight acute events This morning at the bedside, patient is AOx4, saturating well on room air, responding questions properly, tolerating p.o. denies any acute complaints at the moment, stated his pain has improved, stated his want to have a walk outside to the hospital to feel the fresh air otherwise explained to the patient that we will not be possible to do that at this moment. WBCs has been with normal limits, patient remains afebrile, 48 hours blood culture has been negative. Due to patient is hemodynamically stable and showed clinical improvement we will anticipate discharge in the next 24 to 48 hours . Exam Vital Signs Temp Pulse Resp BP Pulse Ox O2 Del Method 97.4 F 72 18 158/81 H 97 Room Air 11/16/24 04:00 11/16/24 04:00 11/16/24 04:00 11/16/24 04:00 11/16/24 04:00 11/16/24 04:00 Narrative Exam General: No acute distress, well appearing, alert, interactive. HEENT: NC/AT, PERRL, EOMI, Good conjugate gaze, moist mucous membranes, oropharynx clear. Neck: Supple, No masses, No adenopathy, carotid pulse 2+ bilaterally without bruits, No JVD, normal range of motion. Chest: Symmetrical, atraumatic, and with equal expansion , Nontender on palpation no deformity and no crepitus. CVS: S1 and S2 present, Regular rate and rhythm, No murmurs, rubs or gallops perceived during auscultation. Lungs: Normal respiratory effort, CTAB, no wheezing, rhonchi or rales perceived during auscultation, No intercostal or subcostal retraction. Abdomen : Soft, no tenderness to palpation, no guarding ,no rebound, +BS, no organomegaly. Extremities:Left lower extremity erythema improved with mild swelling and first metatarsal with wound 1 x 2 cm without draining. Pedal pulses present B/L warm well perfused, normal tone and ROM, strength and sensation intact, cap refill less than 2, +2 dp equal bilaterally, able to move all 4 extremities spontaneously. Skin: first metatarsal with wound 1 x 2 cm without draining Neuro: AOx4, cranial nerves II through XII intact, reflex symmetric and sensation normal, no focal neurologic deficits noted, GCS 15 Psych: Appropriate mood and affect. Objective Labs 11/16/24 05:08 11/16/24 05:08 Labs: Laboratory Results - last 24 hr 11/15/24 11/16/24 09:00 05:08 WBC 8.0 RBC 4.91 Hgb 15.4 Hct 44.4 MCV 90 MCH 31.4 MCHC 34.7 RDW Std Deviation 40.1 Plt Count 325 Neut % (Auto) 59 Lymph % (Auto) 29 [place] % (Auto) 8 Eos % (Auto) 2 Baso % (Auto) 1 Neut # (Auto) 4.8 Lymph # (Auto) 2.3 [place] # (Auto) 0.6 Eos # (Auto) 0.2 Baso # (Auto) 0.1 Immature Gran # (Auto) 0.02 H Absolute Nucleated RBC 0.00 Immature Gran % 0 Nucleated RBC % 0 Sodium 144 Potassium 3.8 Chloride 111 H Carbon Dioxide 25.4 Anion Gap 8 BUN 10 Creatinine 0.7 Estim Creat Clear Calc 123.1 eGFR > 60 BUN/Creatinine Ratio 14 Glucose 108 H Calculated Osmolality 286 Calcium 8.6 Corrected Calcium 8.8 Phosphorus 3.5 Magnesium 2.1 Total Bilirubin 0.3 AST 20 ALT 31 Alkaline Phosphatase 45 L Total Protein 5.7 Albumin 3.7 Globulin 2.0 L Albumin/Globulin Ratio 1.9 Ur Collection Type Clean Catch Urine Color Lt-Yellow Urine Clarity Clear Urine pH 7.0 Ur Specific [place] 1.019 Urine Protein Negative Urine Glucose (UA) Negative Urine Ketones Trace Urine Blood Negative Urine Nitrite Negative Urine Bilirubin Negative Urine Urobilinogen (Auto) Negative Ur Leukocyte Esterase Negative Urine RBC 1 Urine WBC 1 Ur Squamous Epith Cells < 1 Urine Bacteria None Quality Measures Quality Measures none Assessment & Plan Assessment Current Active Medications: Generic Name Dose Route Start Last Admin Trade Name Freq PRN Reason Stop Dose Admin Acetaminophen 650 mg 11/14/24 15:58 Acetaminophen 325 Mg Tablet PO 12/14/24 15:57 Q6H PRN Fever >101.5 Acetaminophen 650 mg 11/14/24 15:58 11/16/24 03:41 Acetaminophen 325 Mg Tablet PO 12/14/24 15:57 650 mg Q6H PRN Administration PAIN SCALE 1-3 (mild Ceftriaxone Sodium 1,000 mg/ 50 mls @ 100 mls/hr 11/14/24 16:01 11/15/24 08:45 Sodium Chloride IV 11/21/24 16:00 100 mls/hr QDAY DAVID Administration Vancomycin/Sodium Chloride 200 mls @ 120 mls/hr 11/15/24 10:00 11/15/24 21:33 Vancomycin/Ns 1 Gm Ivpb IV 11/22/24 09:59 120 mls/hr Q12H DAVID Administration Losartan Potassium 50 mg 11/16/24 09:00 Losartan Potassium 25 Mg Tablet PO 12/16/24 08:59 QDAY DAVID Nicotine 21 mg 11/15/24 09:00 11/15/24 08:45 Nicotine Patch 21 Mg/24 Hr Patch.Td24 TOP 12/15/24 08:59 21 mg QDAY DAVID Administration Ondansetron HCl 4 mg 11/14/24 15:58 11/14/24 19:59 Ondansetron Inj 2 Mg/Ml Inj 2 Ml IV 12/14/24 15:57 4 mg Q6H PRN Administration NAUSEA OR VOMITING Protocol Pharmacy Consult 1 each 11/15/24 09:00 Vancomycin Pharmacy To Dose 1 Each Each IV 12/15/24 08:59 QDAY PRN CONSULT Sennosides 1 tab 11/15/24 09:00 11/15/24 08:46 Senna Tablet PO 12/15/24 08:59 1 tab QDAY DAVID Administration Protocol Plan 64-year-old male current smoker with past medical history of hypertension who presented to the ED from the [facility] due to failing outpatient antibiotic therapy for left lower extremity cellulitis. #Left lower extremity cellulitis improving Patient reports getting a cut on the left lower extremity about a month ago that progressively became swollen and red and painful. Approximately 1 week ago patient was seen in the [facility] and was given 1 week course of doxycycline, however has not improved since then. Patient's last tetanus shot was in 1993. Foot XR shows Progressed soft tissue tissue swelling without acute bony findings. MR versus bone scan available as clinically indicated. Venous duplex of lower extremity negative for DVT Blood cultures after 48 hours has been negative ? Continue vancomycin ? Continue ceftriaxone ? wound culture and gram stain pending #Hypertension Systolic blood pressure 160 ? Continue losartan 50 mg losartan daily ? Added amlodipine 10 mg daily #Tobacco use Patient is a current 1 pack/day smoker ? Nicotine patch provided. Disposition: MedSurg Fluids and diet : Regular DVT prophylax: SCDs GI prophylax: none CODE STATUS: Full code Patient discussed with my attending Dr Guanakito Dunaway MD PGY-3 Disclaimer: Despite multiple revisions, due to the dictation software being used, the document bellow may not be free of grammatical errors including phonetic/typographic errors. However, this does not deter from our commitment to providing health care in the patient's best interest in mind. Attending Provider Attestation/Addendum I attest that I was physically present for the evaluation, physical examination, lab and imaging review of the patient with the residents. I discussed the case with the residents and agree with the findings and plans of care as documented above. Misbah Calabrese MD
[2024-11-16] MEDS: LOSARTAN POTASSIUM 25 MG TABLET 50 MG PO (08:19)
[2024-11-16] MEDS: cefTRIAXone 1,000 MG in SODIUM CHLORIDE 0.9% (Popper) 50 ML 100 MG IV (08:19)
[2024-11-16] MEDS: NICOTINE PATCH 21 MG/24 HR PATCH.TD24 TOP (08:20)
[2024-11-16] MEDS: SENNA TABLET 1 TAB PO (08:36)
[2024-11-16 08:45] LABS: Glucose Estimated Average 111 mg/dL (80-131); Hemoglobin A1C 5.5 % Hgb (4.8-6.0)
[2024-11-16 09:55] LABS: Vancomycin,Trough 10.1 mcg/mL (5.0-10.0)
[2024-11-16] MEDS: VANCOMYCIN/NS 1 GM IVPB 200 ML IV ×2 (10:35→21:58)
--- NOTE | 2024-11-16 11:40 | PC.SS ---
Patient is alert/oriented. Patient was able to verify demographics. Patient is independent with ADLs. He states he resides with his mother. 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 Patient was admitted for cellulitis. He failed out patient oral antibiotics. Patient is now on i.v. antibiotics. He is wanting to return home once ready for d/c. Patient has [facility] Medi-bill. PCP: Dr. Sun. Last appt. was last Sunday. Pharmacy: [facility]. Patient does not have a vehicle. He gets transportation through friends/family. Patient verbalized his alt medical decision maker is his mother, Marie. alt medical decision maker: mother Salazar, transport: upon discharge will need uber/taxi
[2024-11-17] VITALS: BP 170/88; PULSE 72; RESP 18; TEMP 36.7; O2SAT 92
[2024-11-17 04:00] VITALS: BP 163/93; PULSE 74; RESP 18; TEMP 36.6; O2SAT 98
[2024-11-17 06:27] LABS: Basophils # (Auto) 0.1 Thou/mm3 (0.0-0.2); Basophils % (Auto) 1 % (0-2.5); Eosinophils # (Auto) 0.2 Thou/mm3 (0.0-0.5); Eosinophils % (Auto) 2 % (0-10); Hematocrit 45.9 % (41.0-53.0); Immature Granulocytes % (Auto) 0 % (0-0); Immature Granulocytes Auto 0.02 Thou/mm3 (0.00-0.00); Lymphocytes # (Auto) 2.2 Thou/mm3 (1.0-4.8); Lymphocytes % (Auto) 25 % (10-50); Mean Corpuscular HGB Conc 34.9 g/dl (31.0-37.0); Mean Corpuscular Hemoglobin 31.1 pg (25.0-35.0); Mean Corpuscular Volume 89 fL (80-100); Monocytes # (Auto) 0.7 Thou/mm3 (0.0-0.8); Monocytes % (Auto) 8 % (0-12); Neutrophils # (Auto) 5.6 Thou/mm3 (1.8-7.7); Neutrophils % (Auto) 64 % (37-80); Nucleated Red Blood Cell % 0 /100 WBC (0); Platelet Count 317 Thou/mm3 (140-440); RDW Standard Deviation 39.2 fL (35.1-43.9); Red Blood Count 5.14 Miln/mm3 (4.50-5.90); White Blood Count 8.8 Thou/mm3 (3.8-10.6)
[2024-11-17 06:55] LABS: Alanine Aminotransferase 35 U/L (10-49); Albumin, Serum 3.8 gm/dL (3.4-4.8); Albumin/Globulin Ratio 1.7 (1.2-2.2); Alkaline Phosphatase 48 U/L (46-116); Anion Gap 9 (7-16); Aspartate Amino Transferase 23 U/L (0-34); BUN/Creatinine Ratio 16 Ratio (12-20); Bilirubin,Total 0.3 mg/dL (0.3-1.2); Blood Urea Nitrogen 11 mg/dL (9-23); Calcium 8.9 mg/dL (8.3-10.6); Calcium (Corrected) 9.1 mg/dL (8.5-10.1); Carbon Dioxide 23.2 mMol/L (20.0-31.0); Chloride 110 mMol/L (98-107); Creatinine (Component) 0.7 mg/dL (0.6-1.3); Estimated Creatinine Clearance 123.1 mL/min (>60); Globulin 2.2 gm/dL (2.3-3.5); Glucose 103 mg/dL (74-106); Osmolality,Calculated 282 (275-295); Phosphorous 3.6 mg/dL (2.4-5.1); Potassium 3.5 mMol/L (3.4-5.1); Sodium 142 mMol/L (136-145); eGFR > 60 See Note
[2024-11-17 08:00] VITALS: BP 166/85; PULSE 72; RESP 18; TEMP 36.3; O2SAT 98
[2024-11-17] MEDS: cefTRIAXone 1,000 MG in SODIUM CHLORIDE 0.9% (Popper) 50 ML 100 MG IV (08:58)
[2024-11-17 08:59] VITALS: BP 166/85; PULSE 72
[2024-11-17] MEDS: amLODIPine BESYLATE 5 MG TABLET 10 MG PO (08:59)
[2024-11-17] MEDS: ACETAMINOPHEN 325 MG TABLET 650 MG PO (08:59)
[2024-11-17] MEDS: NICOTINE PATCH 21 MG/24 HR PATCH.TD24 TOP (08:59)
[2024-11-17 09:00] VITALS: BP 166/85; PULSE 72
[2024-11-17] MEDS: LOSARTAN POTASSIUM 25 MG TABLET 50 MG PO (09:00)
[2024-11-17] MEDS: VANCOMYCIN/NS 1 GM IVPB 200 ML IV (10:01)
--- NOTE | 2024-11-17 11:18 | ESDS_ITS ---
<Statement entered by Thu Thurston MD - 11/17/24 18:22> I discussed with and supervised the it intern physician who took care of this patient. I personally saw and examined the patient and discussed the assessment and plan with the entire medicine team, including my attending , I agree with most of the assessment and plan as documented below Thu Thurston M.D. PGY-2 Planned Discharge Date 11/17/24 DS: Providers Provider Date of admission: 11/14/24 15:58 Primary care physician: Kevin Sun MD Admitting Provider: Misbah Calabrese MD Attending Provider on Admission: Misbah Calabrese MD Consults: 11/14/24 17:32 Referral Wound Care Routine Comment: Attending Provider on DC: Misbah Calabrese MD Discharging Provider: Donnell Bob MD Anticipated date of discharge: 11/17/24 DS: Diagnosis Problem List Completed Was Problem List Reviewed/Reconciled?: Yes Hospital Course Hospital Course Hospital course: 64-year-old male current smoker with past medical history of hypertension who presented to the ED from the [facility] due to failing outpatient antibiotic therapy for left lower extremity cellulitis. During hospital stay patient was managed with IV antibiotics, cultures were obtained, and wound care was ordered. Patient also was instructed to follow up with outpatient wound care. Imaging was obtained to rule out DVT at the time of admission. Hypertension was managed with home dose of losartan which was adjusted during hospitalization for optimal blood pressure control. At this time patient is medically stable for discharge. You have been discharged with antibiotic Augmentin for an additional 4 days. Terbinafine also prescribed due to onychomycosis until prevent future cellulitis. Patient has been prescribed amlodipine 5 mg daily and losartan dose was adjusted to 50 mg daily as well as a blood pressure cuff for blood pressure monitoring. Your losartan 25 mg daily has been discontinued in order to prescribe new dose. Should any symptoms recur or worsen patient is instructed to return to the ED. Problem List: #Left lower extremity cellulitis improving #Hypertension #Tobacco use Case discussed with my senior Dr. Thurston PGY-[address] Guanakito Bob MD PGY-1 Status at Discharge Functional status at discharge: independent ambulation Overall status at discharge: patient is back to baseline Time Spent with Patient Time attestation: Total time spent providing and/or coordinating discharge services: Time spent: Greater than 30 minutes Exam Vital Signs Temp Pulse Resp BP Pulse Ox O2 Del Method 97.4 F 72 18 166/85 H 98 Room Air 11/17/24 08:00 11/17/24 09:00 11/17/24 08:00 11/17/24 09:00 11/17/24 08:00 11/17/24 08:00 Narrative Exam Physical Exam GENERAL: NAD, AAOx3 HEENT: Moist mucosa. Eyes open, symmetrical, & clear CARDIO: Heart RRR, no obvious murmurs PULM: No noted coughing/dyspnea CTA B/L, no R/W/R GI: Abdomen soft, nondistended, no pain on palpation. BSx4 SKIN/MSK/EXT: Left lower extremity pain and swelling with redness more pronounced on the metatarsals-improving. Pedal pulses present B/L NEURO: AAOx3, no focal neuro deficits, able to move all 4 extremities Discharge Plan Plan Patient Disposition: HOME (Self Care) Care Plan Goals: Follow up with your primary care connor Sun MD within 1 week of discharge You have been prescribed terbinafine for 6 weeks for onychomycosis to prevent recurrent cellulitis, please follow up with liver panel in 3 weeks You have been prescribed antibiotic augmentin for treatment of cellulitis for 4 more days Your blood pressure medication losartan 25mg qday was adjusted to 50mg everyday due to increased BP and blood pressure cuff was ordered as well for better BP monitoring. Should any symptoms recur or worsen patient is instructed to return to the ED. Follow up at [facility], [address] [place] [address]. Call [phone] for appointment Wound care to left foot: May shower than ensure entire foot is dry. Apply moisturizing cream to dry flaky bottom of foot. Swab outer great toe and outer 5th toe wounds with betadine- allow to dry than keep covered with clean sock. Wear offloading surgical boot when ambulating. Monitor for increasing redness, swelling, pain to site, fevers or active draining from foot. If these symptoms occur, please inform primary MD of infection. Prescriptions/Referrals Prescriptions/Med Rec: New amoxicillin-pot clavulanate 875-125 mg tablet 1 tab PO BID 4 Days Qty: 8 0RF terbinafine HCl 250 mg tablet 250 mg PO QDAY 42 Days Qty: 42 0RF amlodipine 5 mg Tablet 10 mg PO QDAY 30 Days Qty: 60 0RF losartan 50 mg tablet 50 mg PO QDAY 30 Days Qty: 30 0RF (DME) Blood Pressure Cuff Misc See Rx Instructions .Route Qty: 1 0RF Rx Instructions: As directed Discontinued doxycycline hyclate 100 mg capsule 100 mg PO BID Qty: 14 0RF cephalexin 500 mg capsule 500 mg PO QID Patient Comments: TAKE 1 CAPSULE BY MOUTH FOUR TIMES DAILY FOR 7 DAYS losartan 25 mg tablet 25 mg PO QDAY Qty: 30 0RF Referrals: Kevin Sun MD [Primary Care Provider] - Patient/Caregiver Discharge Instructions Education Materials: Nutrition for Wound Healing, Discharge Instructions for Cellulitis, Wound Care Dc Print Language: Vietnamese Stand Alone Forms: Sara Award Info., Patient Portal Info Letter Discharge Order Discharge Orders: Discharge (Routine); Ordered 11/17/24 Ordered By: Donnell Bob Quality Discharge Quality Measures VTE prophylaxis Attestestation MD Attestation I attest that I was physically present for the evaluation, physical examination, lab and imaging review of the patient with the residents. I discussed the case with the residents and agree with the findings and plans of care as documented above. Misbah Calabrese MD
[2024-11-17 12:00] VITALS: BP 172/90; PULSE 71; RESP 19; TEMP 36.3; O2SAT 99
--- NOTE | 2024-11-17 15:33 | PC.SS ---
rounding note: Patient to d/c home on oral antibiotics. D/c today
== END 2024-11-17 14:25 | disposition home or self-care (01) | DRG 383 ==
LOC: SERX 15:50 → SERHOLD 16:33 → S3NX 22:07
PROVIDERS: Registered Nurse General Practice; Student in an Organized Health Care Education/Training Program; Admitting Provider Student in an Organized Health Care Education/Training Program; Emergency Provider Family Medicine; PCP Student in an Organized Health Care Education/Training Program; Visit Provider Student in an Organized Health Care Education/Training Program
DX: L03.116 Cellulitis of left lower limb (principal); I10 Essential (primary) hypertension; F17.213 Nicotine dependence, cigarettes, with withdrawal; B35.1 Tinea unguium; Z79.899 Other long term (current) drug therapy
CPT/HCPCS: 36415; 73630; 80053; 80061; 80202; 81001; 83036; 83605; 83735; 84100; 84145; 84443; 85025; 85610; 85652; 85730; 86140; 87040; 87070; 87205; 90471; 90714; 93225; 93971; 96365; 96368; 99285; J0696; J1885; J2405; J2543; J3370; J7030; J7050; A9270

== ENCOUNTER 2024-11-21 10:24 | Outpatient (AMB) | payer MEDICAID, SELFPAY ==
[2024-11-21 10:41] VITALS: BP 174/98; PULSE 112; RESP 16; TEMP 36.8; O2SAT 95
--- NOTE | 2024-11-21 10:41 | PD.RESCLINIC ---
Vital Signs 11/21/24 10:41 Weight 88.677 kg Weight Measurement Method Standing Scale BP 174/98 H Blood Pressure Source Automatic Cuff Blood Pressure Location Left Upper Arm Position Sitting Respiration 16 Pulse 112 H Pulse Source Monitor Temp 98.3 F Temp Source Temporal Artery Scan Pulse Oximetry (%) 95 Oxygen Delivery Method Room Air Allergies/Meds Allergies & Medications Allergies SEA FOOD Allergy (Uncoded 11/21/24 14:22) Medication Reconciliation amlodipine 5 mg tablet 10 mg (2 x 5 mg) PO QDAY 1 month #60 tabs 11/17/24 [Rx Confirmed 11/21/24] losartan 50 mg tablet 50 mg PO QDAY 1 month #30 tabs 11/17/24 [Rx Confirmed 11/21/24] miscellaneous medical supply (Blood Pressure Cuff) #1 ea 11/17/24 [Rx Confirmed 11/21/24] terbinafine HCl 250 mg tablet 250 mg PO QDAY 6 weeks #42 tabs 11/17/24 [Rx Confirmed 11/21/24] nicotine 21 mg/24 hr daily transdermal patch 1 patch transdermal Q24H #28 ea 11/21/24 [Rx Confirmed 11/21/24] MA Intake Visit Data Collection New Patient or Established: Established Patient (seen at [facility] within 3 years) Seen by Clinical Staff ONLY (RN/MA): No Pain Present Currently: No Pain scale:: 0 Pain Scale Used: 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 Discussed the benefits of quitting smoking with patient. Encouraged patient to quit smoking and provided Cessation assistance materials and resources. Tobacco Use: Cigarette Years smoked: 20 Are you interested in quitting?: Yes Would you like additional Smoking Cessation Counseling?: Yes Immunization / Flu Flu Vaccine in the Last 12 Months: No Flu Vaccine Exclusion Criteria: No Exclusion Criteria Past Medical History Past Medical History CARDIAC: Positive Hypertension; Negative Congestive Heart Failure RESPIRATORY: Negative Chronic Obstructive Pulmonary Disease (COPD) GENITOURINARY: Negative Renal Disease ENDOCRINE: Negative Diabetes Mellitus Type 1 or Diabetes Mellitus Type 2 Social History SMOKING STATUS: Smoking status: Heavy (> 1 pack/day) ALCOHOL: Alcohol Intake: Current ALCOHOL FREQUENCY: Alcohol Intake Frequency: holidays/special occasions only HOUSING: Housing: House LIVES WITH: Lives With: Family Patient Portal C[place]lle Social History Living Situation History Housing: House Tobacco History Smoking Status: Heavy (> 1 pack/day) Alcohol History Alcohol Intake: Current Alcohol Intake Frequency: holidays/special occasions only Domestic Abuse History Do You Feel Safe at Home: Yes Review of Systems Report any current symptoms Only answer those that you have currently: Past Medical History Past Medical History Have you ever been diagnosed with any of the following: Cardiology Problems Congestive Heart Failure: No Hypertension: Yes Respiratory Problems Chronic Obstructive Pulmonary Disease (COPD): No Genital/Urinary Problems Renal Disease: No Endocrine Problems Diabetes Mellitus Type 1: No Diabetes Mellitus Type 2: No History of Present Illness HPI Narrative The patient is a 64-year-old male, past medical history of hypertension, who was last seen in the clinic on 11/07/2024 for left foot swelling and numbness. Patient was previously seen in the emergency room a few days back and was worked up for DVT, ultrasound duplex was negative, patient was diagnosed with cellulitis and discharged on per oral antibiotics cephalexin. Despite completing 5 days of p.o. antibiotic, patient had persistent left lower foot swelling, on last visit in the [facility], there was concern for polymicrobial infection as patient has pets/cats at home, physical exam pertinent for swelling and numbness, but no warmth or erythema, popliteal pulse palpable but unable to appreciate dorsalis pedis or posterior tibial pulse likely secondary to concomitant swelling. On evaluation today, the foot is visibly erythematous, patient stated 2 days ago he had a cat bite at the affected foot, and had severe pain and worsening swelling as well as redness of the foot. Denied having fever. Patient was already started on doxycycline which provides adequate coverage for cat bite, but due to erythema and worsening pain, concern for osteomyelitis which cannot be reliably ruled out on x-ray, will need MRI to rule out osteomyelitis, still concern for vascular insufficiency and/or DVT, will need a repeat ultrasound duplex to rule out DVT. 11/14/2024 urged the patient to present to the emergency room for possible admission, surgical evaluation and debridement, sent tissue for culture sensitivity, IV antibiotics. Patient agreed with the plan and agreed to present to the emergency room today. I spoke to ER provider HAKEEM Benitez, and communicated my concerns for needing the above investigations and interventions. 11/21/2024 patient presents for follow-up following discharge from hospital, was referred from [facility] to ER for admission and possible surgical evaluation further imaging to rule out osteomyelitis, patient was discharged on antibiotics for few more days. Patient reported his swelling had gone down considerably, since he was lying on bed for most part of the day during his hospital stay. More on presenting today, patient reports that his swelling has returned, it is red and edematous and tender on the lateral aspect of small toe. Patient has very poor peripheral pulses, also confounded by swelling of the left foot up to the ankle. Patient had normal WBC count, lack of fever, will hold off on further antibiotic treatment as patient has already taken antibiotics for 2 weeks. We will order MRI and send surgical referral from outpatient. Review of Systems Review of Systems Systems Reviewed: All systems reviewed, normal except as documented Objective/Exam Narrative Physical exam: General: AOx3, cooperative. Skin: Intact, no cyanosis or edema noted except left foot which is two scarred lesions on the sides of the foot on the big and small toe, Now has erythema, swelling worsened than last visit, scratch rom third and fourth toes, 3+pitting edema upto aknle. HEENT: Atraumatic/normocephalic, YAJAIRA, neck supple Heart: RRR, S1 and S2 without clicks or murmurs Lungs: Clear on auscultation bilaterally, no difficulty breathing Abdomen: Soft, nontender. Bowel sounds present . Vascular: popliteal a. pulse palpable but unable to palpate dorsalis pedis or posterior tibial pulsation due to swelling. Neuro: No focal neurological deficits noted. Assessment & Plan Diagnosis / Problem List (1) Cellulitis of left foot: Status: Acute (2) Cellulitis and abscess of foot: Status: Acute Assessment & Plan: Swelling of left foot, cellulitis versus abscess. Need to rule out osteomyelitis, patient already completed 2 weeks of antibiotics without resolution. Patient did report that during hospitalization swelling had considerably reduced likely due to posture, standing on bed, patient also reported swelling does go down if he elevates his limb. Will defer antibiotics as patient already completed 2 weeks of antibiotics without resolution, we will recommend conservative measures including limb elevation and compression stocking. Unable to rule out unilateral arterial insufficiency, as due to concurrent swelling unable to feel peripheral pulses. Plan: ? Will order MRI left foot to rule out osteomyelitis as well as evaluate extent of soft tissue infection. ? Compression stockings and limb elevation, will hold off on antibiotics as patient is afebrile, normal WBC count, no recommended 2 weeks of antibiotics. ? Wound care referral was made from the hospital, patient is waiting on appointment ? Continue terbinafine for onychomycosis. (3) Hypertension: Status: Acute Assessment & Plan: Also noted hypertension on evaluation, patient reported he was prescribed blood pressure medication but has not started taking it yet, as he is apprehensive of medications. Education and counseling was provided. Patient is an avid smoker, labs pertinent for polycythemia, no leukocytosis, normal kidney function and electrolytes. Plan: ? Losartan 50 mg daily and amlodipine 10 mg daily (4) Smoking addiction: Status: Acute Assessment & Plan: counselled regarding medication compliance and smoking cessation. no plans to discontinue yet, will stress on followup visits. Orders: Orders foot LT wo con 11/21/24 L03.116 - Cellulitis of left lower limb Referrals General surgery Office Procedures [facility] Level of Care Nursing/Assessment Patient Status: Established Patient Nursing Assessment/Reassessment: Medication Reconciliation, Update PMH in EMR and Vital Signs Coordination of Care: Complex Care and Chronic Disease 1-5, Consent,records obtained, informed consent, Education Simp Pt/Fam and Staff clarify orders Established Patient Charge Established Patient Point Assignment: 85 Established Patient Point Charge: EP Level 3 (80-115)
== END 2024-11-21 11:52 | disposition home or self-care (01) ==
LOC: HODAHC 10:24
PROVIDERS: PCP Student in an Organized Health Care Education/Training Program; Referring Provider Student in an Organized Health Care Education/Training Program; Supervising Provider Internal Medicine; Visit Provider Student in an Organized Health Care Education/Training Program
DX: L03.116 Cellulitis of left lower limb (principal); L02.612 Cutaneous abscess of left foot; I10 Essential (primary) hypertension; F17.210 Nicotine dependence, cigarettes, uncomplicated; Z71.6 Tobacco abuse counseling
CPT/HCPCS: 99213; G0463

== ENCOUNTER 2024-11-28 10:29 | Outpatient (AMB) | payer MEDICAID, SELFPAY ==
--- NOTE | 2024-11-28 10:33 | ACNOTE_ITS ---
Vital Signs 11/28/24 10:38 Weight 88.904 kg Weight Measurement Method Standing Scale BP 137/74 H Blood Pressure Source Automatic Cuff Blood Pressure Location Left Upper Arm Position Sitting Respiration 16 Pulse 103 H Pulse Source Monitor Temp 97.8 F Temp Source Temporal Artery Scan Pulse Oximetry (%) 95 Oxygen Delivery Method Room Air Allergies/Meds Allergies & Medications Allergies SEA FOOD Allergy (Uncoded 11/28/24 10:33) Medication Reconciliation amlodipine 5 mg tablet 10 mg (2 x 5 mg) PO QDAY 1 month #60 tabs 11/17/24 [Rx Confirmed 11/28/24] losartan 50 mg tablet 50 mg PO QDAY 1 month #30 tabs 11/17/24 [Rx Confirmed 11/28/24] miscellaneous medical supply (Blood Pressure Cuff) #1 ea 11/17/24 [Rx Confirmed 11/28/24] terbinafine HCl 250 mg tablet 250 mg PO QDAY 6 weeks #42 tabs 11/17/24 [Rx Confirmed 11/28/24] nicotine 21 mg/24 hr daily transdermal patch 1 patch transdermal Q24H #28 ea 11/21/24 [Rx Confirmed 11/28/24] MA Intake Visit Data Collection New Patient or Established: Established Patient (seen at [facility] within 3 years) Seen by Clinical Staff ONLY (RN/MA): No Pain Present Currently: No Pain scale:: 0 Pain Scale Used: Abreu-Deng/Numerical Supervisor Inspecting Required: No PCP or OBGYN visit in last 3 months: Yes Hx Now: No Do You Feel Safe at Home: Yes Authorities Contacted: N/A Smoking Status Smoking Status: Heavy (> 1 pack/day) Cessation Counseling Provided: KATH was advised that quitting smoking is the single most important factor to protect the health of themselves and their family. Discussed the benefits of quitting smoking with patient. Encouraged patient to quit smoking and provided Cessation assistance materials and resources. Tobacco Use: Cigarette Years smoked: 20 Are you interested in quitting?: Yes Would you like additional Smoking Cessation Counseling?: No Immunization / Flu Flu Vaccine in the Last 12 Months: No Flu Vaccine Exclusion Criteria: No Exclusion Criteria Past Medical History Past Medical History CARDIAC: Positive Hypertension; Negative Congestive Heart Failure RESPIRATORY: Negative Chronic Obstructive Pulmonary Disease (COPD) GENITOURINARY: Negative Renal Disease ENDOCRINE: Negative Diabetes Mellitus Type 1 or Diabetes Mellitus Type 2 Social History SMOKING STATUS: Smoking status: Heavy (> 1 pack/day) ALCOHOL: Alcohol Intake: Current ALCOHOL FREQUENCY: Alcohol Intake Frequency: holidays/special occasions only HOUSING: Housing: House LIVES WITH: Lives With: Family Patient Portal [facility] Social History Living Situation History Housing: House Tobacco History Smoking Status: Heavy (> 1 pack/day) Alcohol History Alcohol Intake: Current Alcohol Intake Frequency: holidays/special occasions only Domestic Abuse History Do You Feel Safe at Home: Yes Review of Systems Report any current symptoms Only answer those that you have currently: Past Medical History Past Medical History Have you ever been diagnosed with any of the following: Cardiology Problems Congestive Heart Failure: No Hypertension: Yes Respiratory Problems Chronic Obstructive Pulmonary Disease (COPD): No Genital/Urinary Problems Renal Disease: No Endocrine Problems Diabetes Mellitus Type 1: No Diabetes Mellitus Type 2: No History of Present Illness HPI Narrative The patient is a 64-year-old male, past medical history of hypertension, who was last seen in the clinic on 11/07/2024 for left foot swelling and numbness. Patient was previously seen in the emergency room a few days back and was worked up for DVT, ultrasound duplex was negative, patient was diagnosed with cellulitis and discharged on per oral antibiotics cephalexin. Despite completing 5 days of p.o. antibiotic, patient had persistent left lower foot swelling, on last visit in the [facility], there was concern for polymicrobial infection as patient has pets/cats at home, physical exam pe rtinent for swelling and numbness, but no warmth or erythema, popliteal pulse palpable but unable to appreciate dorsalis pedis or posterior tibial pulse likely secondary to concomitant swelling. On evaluation today, the foot is visibly erythematous, patient stated 2 days ago he had a cat bite at the affected foot, and had severe pain and worsening swelling as well as redness of the foot. Denied having fever. Patient was already started on doxycycline which provides adequate coverage for cat bite, but due to erythema and worsening pain, concern for osteomyelitis which cannot be reliably ruled out on x-ray, will need MRI to rule out osteomyelitis, still concern for vascular insufficiency and/or DVT, will need a repeat ultrasound duplex to rule out DVT. 11/14/2024 urged the patient to present to the emergency room for possible admission, surgical evaluation and debridement, sent tissue for culture sensitivity, IV antibiotics. Patient agreed with the plan and agreed to present to the emergency room today. I spoke to ER provider HAKEEM Benitez, and communicated my concerns for needing the above investigations and interventions. 11/21/2024 patient presents for follow-up following discharge from hospital, was referred from [facility] to ER for admission and possible surgical evaluation further imaging to rule out osteomyelitis, patient was discharged on antibiotics for few more days. Patient reported his swelling had gone down considerably, since he was lying on bed for most part of the day during his hospital stay. More on presenting today, patient reports that his swelling has returned, it is red and edematous and tender on the lateral aspect of small toe. Patient has very poor peripheral pulses, also confounded by swelling of the left foot up to the ankle. Patient had normal WBC count, lack of fever, will hold off on further antibiotic treatment as patient has already taken antibiotics for 2 weeks. We will order MRI and send surgical referral from outpatient. 11/28/2024 f/u visit, complaining of stabbing pain left foot, when he tries to walk, swelling decreases once limb elevation, hasn't been using compression socks due to pain, The patient is pending Wound care appointment on Sunday, will also get Podiatry referral started and working on insurance auth for MRI. No change in swelling despite being off antibiotics, no fever reported. the patient has been using nicotine patches and cutting back on number of cigarettes smoked. one pack now lasts 2-3 days. Review of Systems Review of Systems Systems Reviewed: All systems reviewed, normal except as documented Objective/Exam Narrative Physical exam: General: AOx3, cooperative. Skin: Intact, no cyanosis or edema noted except left foot which is two scarred lesions on the sides of the foot on the big and small toe, Now has erythema, swelling worsened than last visit, scratch rom third and fourth toes, 3+pitting edema upto aknle. HEENT: Atraumatic/normocephalic, YAJAIRA, neck supple Heart: RRR, S1 and S2 without clicks or murmurs Lungs: Clear on auscultation bilaterally, no difficulty breathing Abdomen: Soft, nontender. Bowel sounds present . Vascular: popliteal a. pulse palpable but unable to palpate dorsalis pedis or posterior tibial pulsation due to swelling. Neuro: No focal neurological deficits noted. Assessment & Plan Diagnosis / Problem List (1) Cellulitis and abscess of foot: Status: Acute Assessment & Plan: Swelling of left foot, cellulitis versus abscess. Need to rule out osteomyelitis, patient already completed 2 weeks of antibiotics without resolution. Patient did report that during hospitalization swelling had considerably reduced likely due to posture, standing on bed, patient also reported swelling does go down if he elevates his limb. Will defer antibiotics as patient already completed 2 weeks of antibiotics without resolution, we will recommend conservative measures including limb elevation and compression stocking. Unable to rule out unilateral arterial insufficiency, as due to concurrent swelling unable to feel peripheral pulses. 11/28/2024 f/u visit, complaining of stabbing pain left foot, when he tries to walk, swelling decreases once limb elevation, hasn't been using compression socks due to pain, The patient is pending Wound care appointment on Sunday, will also get Podiatry referral started and working on insurance auth for MRI. No change in swelling despite being off antibiotics, no fever reported. Plan: ? Will order MRI left foot to rule out osteomyelitis as well as evaluate extent of soft tissue infection. ? Compression stockings and limb elevation, will hold off on antibiotics as patient is afebrile, normal WBC count, no recommended 2 weeks of antibiotics. ? Wound care referral was made from the hospital, patient is waiting on appointment on Sunday ? Podiatry referral ? Continue terbinafine for onychomycosis. (2) Hypertension: Status: Acute Assessment & Plan: Also noted hypertension on evaluation, patient reported he was prescribed blood pressure medication but has not started taking it yet, as he is apprehensive of medications. Education and counseling was provided. Patient is an avid smoker, labs pertinent for polycythemia, no leukocytosis, normal kidney function and electrolytes. Plan: ? Losartan 50 mg daily and amlodipine 10 mg daily (3) Smoking addiction: Status: Acute Assessment & Plan: counselled regarding medication compliance and smoking cessation. no plans to discontinue yet, will stress on followup visits. Plan: - Nicotine patches - the patient has been using nicotine patches and cutting back on number of cigarettes smoked. one pack now lasts 2-3 days. Orders: Referrals Podiatry Additional Assessment Internal Medicine Attending Note: Case discussed with and agree with note and management plan of Resident Physician as per Resident's Note above. Issues of concern for present visit are as follows: 1 week follow-up visit. Stabbing pains in left foot with ambulation. Swelling continues to decrease with elevation, has not been using compression socks due to pain. Is to see wound care on December 03. We are working on insurance authorization for MRI to evaluate for osteomyelitis. No change in swelling despite being on antibiotics. No edema in the right foot. Patient has been cutting back on smoking. Today, patient is given Viraj wraps to use for compression. Blood pressure improved to 137/74, counseled regarding compliance. Consider amlodipine as potential cause of increase in edema in left foot, though no edema on right. May need change in regimen. Kali Bean MD Physician Billing Established Patient Established Patient: E/M Level 3-CPT 18910 Office Procedures [facility] Level of Care Nursing/Assessment Patient Status: Established Patient Nursing Assessment/Reassessment: Medication Reconciliation, Update PMH in EMR and Vital Signs Coordination of Care: Complex Care and Chronic Disease 1-5, Consent,records obtained, informed consent, Education Simp Pt/Fam, Ref for ancillary service and Staff clarify orders Established Patient Charge Established Patient Point Assignment: 105 Established Patient Point Charge: EP Level 3 (80-115)
[2024-11-28 10:38] VITALS: BP 137/74; PULSE 103; RESP 16; TEMP 36.6; O2SAT 95
== END 2024-11-28 11:59 | disposition home or self-care (01) ==
LOC: HODAHC 10:29
PROVIDERS: PCP Student in an Organized Health Care Education/Training Program; Referring Provider Student in an Organized Health Care Education/Training Program; Supervising Provider Internal Medicine; Visit Provider Student in an Organized Health Care Education/Training Program
DX: L03.116 Cellulitis of left lower limb (principal); I10 Essential (primary) hypertension; F17.210 Nicotine dependence, cigarettes, uncomplicated; Z71.6 Tobacco abuse counseling
CPT/HCPCS: 99213; G0463

== ENCOUNTER 2024-12-01 09:53 | Outpatient (AMB) | payer MEDICAID, SELFPAY ==
[2024-12-01 09:59] VITALS: BP 176/77; PULSE 118; RESP 16; TEMP 36.4; O2SAT 95
--- NOTE | 2024-12-01 09:59 | PD.RESCLINIC ---
Vital Signs 12/01/24 09:59 Weight 87.26 kg Weight Measurement Method Standing Scale BP 176/77 H Blood Pressure Source Automatic Cuff Blood Pressure Location Left Upper Arm Position Sitting Respiration 16 Pulse 118 H Pulse Source Monitor Temp 97.5 F Temp Source Temporal Artery Scan Pulse Oximetry (%) 95 Oxygen Delivery Method Room Air Allergies/Meds Allergies & Medications Allergies SEA FOOD Allergy (Uncoded 12/02/24 13:57) Medication Reconciliation miscellaneous medical supply (Blood Pressure Cuff) #1 ea 11/17/24 [Rx Confirmed 11/28/24] terbinafine HCl 250 mg tablet 250 mg PO QDAY 6 weeks #42 tabs 11/17/24 [Rx Confirmed 11/28/24] nicotine 21 mg/24 hr daily transdermal patch 1 patch transdermal Q24H #28 ea 11/21/24 [Rx Confirmed 11/28/24] amoxicillin 875 mg-potassium clavulanate 125 mg tablet 1 tab PO BID cellulitis 2 weeks #28 tabs 12/01/24 [Rx Confirmed 12/02/24] doxycycline hyclate 100 mg capsule 100 mg PO BID cellulitis 2 weeks #28 caps 12/01/24 [Rx Confirmed 12/02/24] furosemide 20 mg tablet 20 mg PO QAM leg swelling 30 days #30 tabs 12/01/24 [Rx Confirmed 12/02/24] losartan 100 mg tablet 100 mg PO QDAY high blood pressure 1 month #30 tabs 12/01/24 [Rx Confirmed 12/02/24] MA Intake Visit Data Collection New Patient or Established: Established Patient (seen at [facility] within 3 years) Seen by Clinical Staff ONLY (RN/MA): No Pain Present Currently: No Pain scale:: 0 Pain Scale Used: Abreu-Deng/Numerical Mathematics Education Professor Required: No PCP or OBGYN visit in last 3 months: No Hx Now: No Do You Feel Safe at Home: Yes Authorities Contacted: N/A Smoking Status Smoking Status: Heavy (> 1 pack/day) Cessation Counseling Provided: KATH was advised that quitting smoking is the single most important factor to protect the health of themselves and their family. Discussed the benefits of quitting smoking with patient. Encouraged patient to quit smoking and provided Cessation assistance materials and resources. Immunization / Flu Flu Vaccine in the Last 12 Months: No Flu Vaccine Exclusion Criteria: No Exclusion Criteria Past Medical History Past Medical History CARDIAC: Positive Hypertension; Negative Congestive Heart Failure RESPIRATORY: Negative Chronic Obstructive Pulmonary Disease (COPD) GENITOURINARY: Negative Renal Disease ENDOCRINE: Negative Diabetes Mellitus Type 1 or Diabetes Mellitus Type 2 Social History SMOKING STATUS: Smoking status: Heavy (> 1 pack/day) ALCOHOL: Alcohol Intake: Current ALCOHOL FREQUENCY: Alcohol Intake Frequency: holidays/special occasions only HOUSING: Housing: House LIVES WITH: Lives With: Family Patient Portal [employer] Social History Living Situation History Housing: House Tobacco History Smoking Status: Heavy (> 1 pack/day) Alcohol History Alcohol Intake: Current Alcohol Intake Frequency: holidays/special occasions only Domestic Abuse History Do You Feel Safe at Home: Yes Review of Systems Report any current symptoms Only answer those that you have currently: Past Medical History Past Medical History Have you ever been diagnosed with any of the following: Cardiology Problems Congestive Heart Failure: No Hypertension: Yes Respiratory Problems Chronic Obstructive Pulmonary Disease (COPD): No Genital/Urinary Problems Renal Disease: No Endocrine Problems Diabetes Mellitus Type 1: No Diabetes Mellitus Type 2: No History of Present Illness HPI Narrative The patient is a 64-year-old male, past medical history of hypertension, who was last seen in the clinic on 11/07/2024 for left foot swelling and numbness. Patient was previously seen in the emergency room a few days back and was worked up for DVT, ultrasound duplex was negative, patient was diagnosed with cellulitis and discharged on per oral antibiotics cephalexin. Despite completing 5 days of p.o. antibiotic, patient had persistent left lower foot swelling, on last visit in the [facility], there was concern for polymicrobial infection as patient has pets/cats at home, physical exam pertinent for swelling and numbness, but no warmth or erythema, popliteal pulse palpable but unable to appreciate dorsalis pedis or posterior tibial pulse likely secondary to concomitant swelling. On evaluation today, the foot is visibly erythematous, patient stated 2 days ago he had a cat bite at the affected foot, and had severe pain and worsening swelling as well as redness of the foot. Denied having fever. Patient was already started on doxycycline which provides adequate coverage for cat bite, but due to erythema and worsening pain, concern for osteomyelitis which cannot be reliably ruled out on x-ray, will need MRI to rule out osteomyelitis, still concern for vascular insufficiency and/or DVT, will need a repeat ultrasound duplex to rule out DVT. 11/14/2024 urged the patient to present to the emergency room for possible admission, surgical evaluation and debridement, sent tissue for culture sensitivity, IV antibiotics. Patient agreed with the plan and agreed to present to the emergency room today. I spoke to ER provider HAKEEM Benitez, and communicated my concerns for needing the above investigations and interventions. 11/21/2024 patient presents for follow-up following discharge from hospital, was referred from [facility] to ER for admission and possible surgical evaluation further imaging to rule out osteomyelitis, patient was discharged on antibiotics for few more days. Patient reported his swelling had gone down considerably, since he was lying on bed for most part of the day during his hospital stay. More on presenting today, patient reports that his swelling has returned, it is red and edematous and tender on the lateral aspect of small toe. Patient has very poor peripheral pulses, also confounded by swelling of the left foot up to the ankle. Patient had normal WBC count, lack of fever, will hold off on further antibiotic treatment as patient has already taken antibiotics for 2 weeks. We will order MRI and send surgical referral from outpatient. 11/28/2024 f/u visit, complaining of stabbing pain left foot, when he tries to walk, swelling decreases once limb elevation, hasn't been using compression socks due to pain, The patient is pending Wound care appointment on Sunday, will also get Podiatry referral started and working on insurance auth for MRI. No change in swelling despite being off antibiotics, no fever reported. the patient has been using nicotine patches and cutting back on number of cigarettes smoked. one pack now lasts 2-3 days. 12/01/2024 Patient presents due to new drainage of the lateral side 5th toe of the left foot. He is wearing open footwear with padding, drainage of the wound was visible on the footwear. Patient also reports increased swelling in the left leg causing some discomfort. He denies any further sharp pains, pain is present in the left foot when palpated. Patient otherwise denies any new fevers, chills, body aches, sweats, nausea, or vomiting. Patient states he did not take his BP medications yet this morning. He has been taking the amlodipine for about 3 weeks. He has been trying to cut back on tobacco smoking, and went one day smoking only 1 cigarette, next day he smoked 9 cigarettes. He is continuing to use the nicotine patches. Patient is still awaiting referrals for MRI, Podiatry, and Surgery. He has a [facility] appointment on December 03. Objective/Exam Narrative Physical exam: Physical Exam General: Awake and in no acute distress. Conversational and non-toxic appearing. Neurologic: Alert and oriented x3, no gross neurological deficit, and patient able to move all 4 extremities. Extremities: Left lower extremity with erythema of the left foot gradiating up to the mid-oliveira. Onychomycosis of toenails. Left great toe with 3x2 cm medial wound covered in hard light brown scab, tender to palpation. Left fifth toe with 2x2 cm open light brown wound and mild purulent drainage, desquamating skin, tender to palpation. All toes with mild degree desquamation of skin. Skin appears tense, 3+ left extremity non-pitting edema up to calf. Skin: Erythema and edema of left lower extremity as above. Assessment & Plan Diagnosis / Problem List (1) Cellulitis and abscess of foot: Status: Acute Assessment & Plan: Swelling of left foot, cellulitis versus abscess. Need to rule out osteomyelitis, patient already completed 2 weeks of antibiotics without resolution. Patient did report that during hospitalization swelling had considerably reduced likely due to posture, standing on bed, patient also reported swelling does go down if he elevates his limb. Will defer antibiotics as patient already completed 2 weeks of antibiotics without resolution, we will recommend conservative measures including limb elevation and compression stocking. Unable to rule out unilateral arterial insufficiency, as due to concurrent swelling unable to feel peripheral pulses. Plan: ? Awaiting appointment for MRI left foot to rule out osteomyelitis as well as evaluate extent of soft tissue infection. ? Continue compression stockings and limb elevation, will hold off on antibiotics as patient is afebrile, normal WBC count, patient completed full courses of antibiotics. ? Attend [facility] appointment on Tuesday, December 03, 2024 ? Awaiting appointment for Podiatry referral (2) Hypertension: Status: Chronic Assessment & Plan: Also noted hypertension on evaluation, patient reported he was prescribed blood pressure medication but has not started taking it yet, as he is apprehensive of medications. Education and counseling was provided. Patient is an avid smoker, labs pertinent for polycythemia, no leukocytosis, normal kidney function and electrolytes. Plan: ? Increase losartan 50 mg daily to 100 mg daily ? Stop amlodipine 10 mg daily due to potential leg swelling side effect (3) Smoking addiction: Status: Chronic Assessment & Plan: Counselled regarding medication compliance and smoking cessation. The patient has been using nicotine patches and cutting back on number of cigarettes smoked. One pack now lasts 2-3 days. Plan: - Continue nicotine patches (4) Onychomycosis: Status: Chronic Assessment & Plan: Bilateral foot onychomycosis present currently under treatment with terbinafine. Plan: ? Continue terbinafine for onychomycosis Office Procedures [facility] Level of Care Nursing/Assessment Patient Status: Established Patient Nursing Assessment/Reassessment: Medication Reconciliation, Update PMH in EMR and Vital Signs Coordination of Care: Complex Care and Chronic Disease 1-5, Consent,records obtained, informed consent, Education Simp Pt/Fam and Staff clarify orders Established Patient Charge Established Patient Point Assignment: 85 Established Patient Point Charge: Level 3 (80-115)
== END 2024-12-01 12:03 | disposition home or self-care (01) ==
LOC: HODAHC 09:53
PROVIDERS: PCP Student in an Organized Health Care Education/Training Program; Referring Provider Student in an Organized Health Care Education/Training Program; Supervising Provider Internal Medicine; Visit Provider Student in an Organized Health Care Education/Training Program
DX: L03.116 Cellulitis of left lower limb (principal); I10 Essential (primary) hypertension; F17.210 Nicotine dependence, cigarettes, uncomplicated; Z71.6 Tobacco abuse counseling; B35.1 Tinea unguium
CPT/HCPCS: 99213; G0463

== ENCOUNTER → 2024-12-03 | Outpatient (CLI) | payer MEDICAID, SELFPAY | END | disposition home or self-care (01) | PROVIDERS: PCP Student in an Organized Health Care Education/Training Program; Referring Provider Student in an Organized Health Care Education/Training Program; Visit Provider Student in an Organized Health Care Education/Training Program | DX: I96 Gangrene, not elsewhere classified (principal); E11.621 Type 2 diabetes mellitus with foot ulcer; L97.529 Non-pressure chronic ulcer of other part of left foot with unspecified severity; F17.200 Nicotine dependence, unspecified, uncomplicated; N18.30 Chronic kidney disease, stage 3 unspecified; D64.9 Anemia, unspecified; M19.09 Primary osteoarthritis, other specified site; Z79.4 Long term (current) use of insulin; I73.9 Peripheral vascular disease, unspecified | CPT/HCPCS: 97597; 99213; A9270; G0463 ==

== ENCOUNTER 2024-12-05 10:18 | Outpatient (AMB) | payer MEDICAID, SELFPAY ==
[2024-12-05 10:32] VITALS: BP 164/82; PULSE 111; RESP 16; TEMP 36.2; O2SAT 96
--- NOTE | 2024-12-05 10:32 | PD.RESCLINIC ---
Vital Signs 12/05/24 10:32 Weight 87.6 kg Weight Measurement Method Standing Scale BP 164/82 H Blood Pressure Source Automatic Cuff Blood Pressure Location Left Upper Arm Position Sitting Respiration 16 Pulse 111 H Pulse Source Monitor Temp 97.2 F Temp Source Temporal Artery Scan Pulse Oximetry (%) 96 Oxygen Delivery Method Room Air Allergies/Meds Allergies & Medications Allergies SEA FOOD Allergy (Uncoded 12/05/24 10:33) Medication Reconciliation miscellaneous medical supply (Blood Pressure Cuff) #1 ea 11/17/24 [Rx Confirmed 12/05/24] terbinafine HCl 250 mg tablet 250 mg PO QDAY 6 weeks #42 tabs 11/17/24 [Rx Confirmed 12/05/24] nicotine 21 mg/24 hr daily transdermal patch 1 patch transdermal Q24H #28 ea 11/21/24 [Rx Confirmed 12/05/24] amoxicillin 875 mg-potassium clavulanate 125 mg tablet 1 tab PO BID #10 tabs 12/05/24 [Rx] doxycycline hyclate 100 mg capsule 100 mg PO BID #20 caps 12/05/24 [Rx] losartan 50 mg tablet 50 mg PO QDAY #30 tabs 12/05/24 [Rx] nifedipine 30 mg tablet,extended release 30 mg PO QDAY #30 tabs 12/05/24 [Rx] MA Intake Visit Data Collection New Patient or Established: Established Patient (seen at [facility] within 3 years) Seen by Clinical Staff ONLY (RN/JASIEL): No Pain Present Currently: No Pain scale:: 0 Pain Scale Used: Abreu-Deng/Numerical Credit Support Counselor Required: No PCP or OBGYN visit in last 3 months: Yes Hx Now: No Do You Feel Safe at Home: Yes Authorities Contacted: N/A Smoking Status Smoking Status: Heavy (> 1 pack/day) Cessation Counseling Provided: KATH was advised that quitting smoking is the single most important factor to protect the health of themselves and their family. Discussed the benefits of quitting smoking with patient. Encouraged patient to quit smoking and provided Cessation assistance materials and resources. Tobacco Use: Cigarette Years smoked: 30 Are you interested in quitting?: Yes Would you like additional Smoking Cessation Counseling?: Yes Immunization / Flu Flu Vaccine in the Last 12 Months: No Flu Vaccine Exclusion Criteria: No Exclusion Criteria Past Medical History Past Medical History CARDIAC: Positive Hypertension; Negative Congestive Heart Failure RESPIRATORY: Negative Chronic Obstructive Pulmonary Disease (COPD) GENITOURINARY: Negative Renal Disease ENDOCRINE: Negative Diabetes Mellitus Type 1 or Diabetes Mellitus Type 2 Social History SMOKING STATUS: Smoking status: Heavy (> 1 pack/day) ALCOHOL: Alcohol Intake: Current ALCOHOL FREQUENCY: Alcohol Intake Frequency: holidays/special occasions only HOUSING: Housing: House LIVES WITH: Lives With: Family Patient Portal [facility] Social History Living Situation History Housing: House Tobacco History Smoking Status: Heavy (> 1 pack/day) Alcohol History Alcohol Intake: Current Alcohol Intake Frequency: holidays/special occasions only Domestic Abuse History Do You Feel Safe at Home: Yes Review of Systems Report any current symptoms Only answer those that you have currently: Past Medical History Past Medical History Have you ever been diagnosed with any of the following: Cardiology Problems Congestive Heart Failure: No Hypertension: Yes Respiratory Problems Chronic Obstructive Pulmonary Disease (COPD): No Genital/Urinary Problems Renal Disease: No Endocrine Problems Diabetes Mellitus Type 1: No Diabetes Mellitus Type 2: No History of Present Illness HPI Narrative The patient is a 64-year-old male, past medical history of hypertension, who was last seen in the clinic on 11/07/2024 for left foot swelling and numbness. Patient was previously seen in the emergency room a few days back and was worked up for DVT, ultrasound duplex was negative, patient was diagnosed with cellulitis and discharged on per oral antibiotics cephalexin. Despite completing 5 days of p.o. antibiotic, patient had persistent left lower foot swelling, on last visit in the [facility], there was concern for polymicrobial infection as patient has pets/cats at home, physical exam pertinent for swelling and numbness, but no warmth or erythema, popliteal pulse palpable but unable to appreciate dorsalis pedis or posterior tibial pulse likely secondary to concomitant swelling. On evaluation today, the foot is visibly erythematous, patient stated 2 days ago he had a cat bite at the affected foot, and had severe pain and worsening swelling as well as redness of the foot. Denied having fever. Patient was already started on doxycycline which provides adequate coverage for cat bite, but due to erythema and worsening pain, concern for osteomyelitis which cannot be reliably ruled out on x-ray, will need MRI to rule out osteomyelitis, still concern for vascular insufficiency and/or DVT, will need a repeat ultrasound duplex to rule out DVT. 11/14/2024 urged the patient to present to the emergency room for possible admission, surgical evaluation and debridement, sent tissue for culture sensitivity, IV antibiotics. Patient agreed with the plan and agreed to present to the emergency room today. I spoke to ER provider HAKEEM Benitez, and communicated my concerns for needing the above investigations and interventions. 11/21/2024 patient presents for follow-up following discharge from hospital, was referred from [facility] to ER for admission and possible surgical evaluation further imaging to rule out osteomyelitis, patient was discharged on antibiotics for few more days. Patient reported his swelling had gone down considerably, since he was lying on bed for most part of the day during his hospital stay. More on presenting today, patient reports that his swelling has returned, it is red and edematous and tender on the lateral aspect of small toe. Patient has very poor peripheral pulses, also confounded by swelling of the left foot up to the ankle. Patient had normal WBC count, lack of fever, will hold off on further antibiotic treatment as patient has already taken antibiotics for 2 weeks. We will order MRI and send surgical referral from outpatient. 11/28/2024 f/u visit, complaining of stabbing pain left foot, when he tries to walk, swelling decreases once limb elevation, hasn't been using compression socks due to pain, The patient is pending Wound care appointment on Sunday, will also get Podiatry referral started and working on insurance auth for MRI. No change in swelling despite being off antibiotics, no fever reported. the patient has been using nicotine patches and cutting back on number of cigarettes smoked. one pack now lasts 2-3 days. 12/01/2024 Patient presents due to new drainage of the lateral side 5th toe of the left foot. He is wearing open footwear with padding, drainage of the wound was visible on the footwear. Patient also reports increased swelling in the left leg causing some discomfort. He denies any further sharp pains, pain is present in the left foot when palpated. Patient otherwise denies any new fevers, chills, body aches, sweats, nausea, or vomiting. Patient states he did not take his BP medications yet this morning. He has been taking the amlodipine for about 3 weeks. He has been trying to cut back on tobacco smoking, and went one day smoking only 1 cigarette, next day he smoked 9 cigarettes. He is continuing to use the nicotine patches. Patient is still awaiting referrals for MRI, Podiatry, and Surgery. He has a [facility] appointment on December 03. 12/05/2024 the patient is seen on f/u, Pt is feeling a lot better following wound care clinic visit, s/p debridement for wounds on medial and lateral aspect of left foot. 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 He was prescribed antibiotics on last visit, amoxicilin and doxycyline for 2 weeks, continues to be afebrile, but will continue with abx following I&D. Hypertensive on arrival , pt not taking the 100mg Losartan, prefers to be on 50mg Losartan , Not taking amlodipine, will send a new order for nifedipine ER 30mg to help HTN and possible PAD. Review of Systems Review of Systems Systems Reviewed: All systems reviewed, normal except as documented Objective/Exam Narrative Physical exam: Physical Exam General: Awake and in no acute distress. Conversational and non-toxic appearing. Neurologic: Alert and oriented x3, no gross neurological deficit, and patient able to move all 4 extremities. Extremities: Visibly reducedLLE swelling with erythema of the left foot radiating up to the ankle. Dressing overlying the wound is clean and dry, followed by wound care. Assessment & Plan Diagnosis / Problem List (1) Cellulitis and abscess of foot: Status: Acute Assessment & Plan: Pt is feeling a lot better following wound care clinic visit, s/p debridement for wounds on medial and lateral aspect of left foot. 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 He was prescribed antibiotics on last visit, amoxicilin and doxycyline for 2 weeks, continues to be afebrile, but will continue with abx following I&D. Plan: ? Awaiting appointment for MRI left foot to rule out osteomyelitis as well as evaluate extent of soft tissue infection. ? Was given 2 more weeks of antibiotics . cephalexin and doxycyline, okay to continue, though wound care and vascular surgery will be more helpful at hthis point. ? Vascular surgery referral made by wound care clinic (2) Hypertension: Status: Chronic Assessment & Plan: ? Hypertensive on arrival , pt not taking the 100mg Losartan, prefers to be on 50mg Losartan , Not taking amlodipine, will send a new order for nifedipine ER 30mg to help HTN and possible PAD. Plan: - Nifedipine ER 30 mg qday - Losartan 50mg qday (3) Smoking addiction: Status: Chronic Assessment & Plan: Counselled regarding medication compliance and smoking cessation. The patient has been using nicotine patches and cutting back on number of cigarettes smoked. One pack now lasts 2-3 days. Plan: - Continue nicotine patches (4) Onychomycosis: Status: Chronic Assessment & Plan: Bilateral foot onychomycosis present currently under treatment with terbinafine. Plan: ? Continue terbinafine for onychomycosis Office Procedures [facility] Level of Care Nursing/Assessment Patient Status: Established Patient Nursing Assessment/Reassessment: Medication Reconciliation, Update PMH in EMR and Vital Signs Coordination of Care: Complex Care and Chronic Disease 1-5, Consent,records obtained, informed consent, Education Simp Pt/Fam and Staff clarify orders Established Patient Charge Established Patient Point Assignment: 85 Established Patient Point Charge: EP Level 3 (80-115)
== END 2024-12-05 11:12 | disposition home or self-care (01) ==
LOC: HODAHC 10:18
PROVIDERS: PCP Student in an Organized Health Care Education/Training Program; Referring Provider Student in an Organized Health Care Education/Training Program; Supervising Provider Internal Medicine; Visit Provider Student in an Organized Health Care Education/Training Program
DX: L03.116 Cellulitis of left lower limb (principal); B35.1 Tinea unguium; I10 Essential (primary) hypertension; F17.210 Nicotine dependence, cigarettes, uncomplicated; Z71.6 Tobacco abuse counseling
CPT/HCPCS: 99213; G0463

== ENCOUNTER → 2024-12-10 | Outpatient (CLI) | payer MEDICAID, SELFPAY | END | disposition home or self-care (01) | LOC: SWHD 09:27 | PROVIDERS: PCP Student in an Organized Health Care Education/Training Program; Referring Provider Student in an Organized Health Care Education/Training Program; Visit Provider Student in an Organized Health Care Education/Training Program | DX: I96 Gangrene, not elsewhere classified (principal); E11.621 Type 2 diabetes mellitus with foot ulcer; L97.522 Non-pressure chronic ulcer of other part of left foot with fat layer exposed; L97.429 Non-pressure chronic ulcer of left heel and midfoot with unspecified severity; F17.200 Nicotine dependence, unspecified, uncomplicated; N18.30 Chronic kidney disease, stage 3 unspecified; D64.9 Anemia, unspecified; M19.09 Primary osteoarthritis, other specified site; Z79.4 Long term (current) use of insulin; R60.0 Localized edema | CPT/HCPCS: 99213; A9270; G0463 ==

== ENCOUNTER → 2024-12-17 | Outpatient (CLI) | payer MEDICAID, SELFPAY | END | disposition home or self-care (01) | LOC: SWHD 09:11 | PROVIDERS: PCP Student in an Organized Health Care Education/Training Program; Referring Provider Student in an Organized Health Care Education/Training Program; Visit Provider Student in an Organized Health Care Education/Training Program | DX: I96 Gangrene, not elsewhere classified (principal); E11.621 Type 2 diabetes mellitus with foot ulcer; L97.522 Non-pressure chronic ulcer of other part of left foot with fat layer exposed; L97.429 Non-pressure chronic ulcer of left heel and midfoot with unspecified severity; F17.200 Nicotine dependence, unspecified, uncomplicated; N18.30 Chronic kidney disease, stage 3 unspecified; D64.9 Anemia, unspecified; M19.09 Primary osteoarthritis, other specified site; Z79.4 Long term (current) use of insulin; R60.0 Localized edema | CPT/HCPCS: 11042; A9270 ==

== ENCOUNTER → 2024-12-22 | Outpatient (CLI) | payer MEDICAID, SELFPAY | END | disposition home or self-care (01) | PROVIDERS: PCP Student in an Organized Health Care Education/Training Program; Referring Provider Student in an Organized Health Care Education/Training Program; Visit Provider Surgery | DX: I96 Gangrene, not elsewhere classified (principal); E11.621 Type 2 diabetes mellitus with foot ulcer; L97.522 Non-pressure chronic ulcer of other part of left foot with fat layer exposed; L97.429 Non-pressure chronic ulcer of left heel and midfoot with unspecified severity; F17.200 Nicotine dependence, unspecified, uncomplicated; N18.30 Chronic kidney disease, stage 3 unspecified; D64.9 Anemia, unspecified; M19.09 Primary osteoarthritis, other specified site; Z79.4 Long term (current) use of insulin; R60.0 Localized edema | CPT/HCPCS: 99213; A9270; G0463 ==

== ENCOUNTER 2024-12-26 10:18 | Outpatient (AMB) | payer MEDICAID, SELFPAY ==
--- NOTE | 2024-12-26 10:35 | ACNOTE_ITS ---
Vital Signs 12/26/24 10:36 Weight 87.146 kg Weight Measurement Method Standing Scale BP 155/87 H Blood Pressure Source Automatic Cuff Blood Pressure Location Right Upper Arm Position Sitting Respiration 16 Pulse 110 H Pulse Source Monitor Temp 97.2 F Temp Source Temporal Artery Scan Pulse Oximetry (%) 94 L Oxygen Delivery Method Room Air Allergies/Meds Allergies & Medications Allergies SEA FOOD Allergy (Uncoded 12/26/24 13:40) Medication Reconciliation miscellaneous medical supply (Blood Pressure Cuff) #1 ea 11/17/24 [Rx Confirmed 12/26/24] terbinafine HCl 250 mg tablet 250 mg PO QDAY 6 weeks #42 tabs 11/17/24 [Rx Confirmed 12/26/24] hydrocodone 5 mg-acetaminophen 325 mg tablet 1 tab PO BID PRN pain #30 tabs 12/22/24 [Rx Confirmed 12/26/24] losartan 50 mg-hydrochlorothiazide 12.5 mg tablet 1 tab PO QDAY #30 tabs 12/26/24 [Rx Confirmed 12/26/24] nicotine 21 mg/24 hr daily transdermal patch 1 patch transdermal Q24H #28 ea 12/26/24 [Rx Confirmed 12/26/24] nifedipine 30 mg tablet,extended release 30 mg PO QDAY #30 tabs 12/26/24 [Rx Confirmed 12/26/24] MA Intake Visit Data Collection New Patient or Established: Established Patient (seen at [facility] within 3 years) Seen by Clinical Staff ONLY (RN/MA): No Pain Present Currently: No Pain scale:: 0 Pain Scale Used: Abreu-Deng/Numerical Coding Compliance Manager Required: No PCP or OBGYN visit in last 3 months: Yes Hx Now: No Do You Feel Safe at Home: Yes Authorities Contacted: N/A Smoking Status Smoking Status: Heavy (> 1 pack/day) Cessation Counseling Provided: KATH was advised that quitting smoking is the single most important factor to protect the health of themselves and their family. Discussed the benefits of quitting smoking with patient. Encouraged patient to quit smoking and provided Cessation assistance materials and resources. Tobacco Use: Cigarette Years smoked: 20 Are you interested in quitting?: Yes Would you like additional Smoking Cessation Counseling?: Yes Immunization / Flu Flu Vaccine in the Last 12 Months: No Flu Vaccine Exclusion Criteria: No Exclusion Criteria Past Medical History Past Medical History CARDIAC: Positive Hypertension; Negative Congestive Heart Failure RESPIRATORY: Negative Chronic Obstructive Pulmonary Disease (COPD) GENITOURINARY: Negative Renal Disease ENDOCRINE: Negative Diabetes Mellitus Type 1 or Diabetes Mellitus Type 2 Social History SMOKING STATUS: Smoking status: Heavy (> 1 pack/day) ALCOHOL: Alcohol Intake: Current ALCOHOL FREQUENCY: Alcohol Intake Frequency: holidays/special occasions only HOUSING: Housing: House LIVES WITH: Lives With: Family Patient Portal [employer] Social History Living Situation History Housing: House Tobacco History Smoking Status: Heavy (> 1 pack/day) Alcohol History Alcohol Intake: Current Alcohol Intake Frequency: holidays/special occasions only Domestic Abuse History Do You Feel Safe at Home: Yes Review of Systems Report any current symptoms Only answer those that you have currently: Past Medical History Past Medical History Have you ever been diagnosed with any of the following: Cardiology Problems Congestive Heart Failure: No Hypertension: Yes Respiratory Problems Chronic Obstructive Pulmonary Disease (COPD): No Genital/Urinary Problems Renal Disease: No Endocrine Problems Diabetes Mellitus Type 1: No Diabetes Mellitus Type 2: No History of Present Illness HPI Narrative Patient is a 64-year-old male, past medical history of hypertension, tobacco use, has been following up with [facility] and wound care clinic for chronic wound and swelling left lower extremity, the patient has wounds on the left foot lateral aspect, followed by wound care clinic, workup initiated for possible peripheral arterial disease, wound debridements done, patient is pending follow-up appointment with vascular surgery, pending arterial Doppler ultrasound ordered by wound care clinic. Patient was denied MRI of the foot to rule out osteomyelitis, pending authorization. Of note, patient has been treated for cellulitis of the left lower extremity with antibiotics multiple times during ER visits and outpatient clinic visits, totaling over 4 weeks. 12/26/2024 patient seen for follow-up, had recent appointments at wound care clinic, pending x-ray 3 view of the left lower extremity, MRI was denied to rule out pneumonitis. Finished antibiotics, denied fever, but still has persistent swelling and pitting edema up to the midshin bilateral lower extremities, worse on the left side. Patient is pending duplex arterial ultrasound and vascular surgery appointment in the coming weeks. Ran out of antihypertensive medication, noted to be hypertensive, will refill meds. Review of Systems Review of Systems Systems Reviewed: All systems reviewed, normal except as documented Objective/Exam Narrative Physical exam: Physical Exam General: Awake and in no acute distress. Conversational and non-toxic appearing. Neurologic: Alert and oriented x3, no gross neurological deficit, and patient able to move all 4 extremities. Extremities: Erythema and swelling of bilateral feet, worse on the left side,, pitting edema 2+, extending to just above the ankle. Left lower extremities covered by dressing, which is clean and dry. CVS: S1 and S2 heard, faint systolic murmur grade 2/6 Respiratory: Bronchial breathing pattern but no added crackles or wheezing Assessment & Plan Diagnosis / Problem List (1) Hypertension: Status: Acute Qualifiers: Hypertension type: primary hypertension Qualified Code(s): I10 - Essential (primary) hypertension Assessment & Plan: History of hypertension, but noncompliance with medications, stressed importance of daily medications for high blood pressure to reduce risk of adverse cardiovascular events and stroke. Plan: ? Losartan hydrochlorothiazide 50/12.5 mg daily ? Nifedipine ER 30 mg daily (2) Cellulitis and abscess of foot: Status: Acute Assessment & Plan: Pt is feeling a lot better following wound care clinic visit, s/p debridement for wounds on medial and lateral aspect of left foot. 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 Completed antibiotics. Plan: ? Awaiting appointment for MRI left foot to rule out osteomyelitis as well as evaluate extent of soft tissue infection. ? Completed antibiotics, patient is afebrile, no active discharge from wound reported, will hold off on further antibiotic treatment. Likely poor healing secondary to peripheral arterial disease. ? Patient has pending appointment with vascular surgeon in the coming weeks, also pending arterial duplex ultrasound, Which patient reported was ordered by wound care. ? Was given [place] 5/325 and gabapentin 100 mg 3 times daily for pain, patient reports not taking [place] does not help, and reports gabapentin makes him loopy, so he will skip a dose before driving. (3) Smoking addiction: Status: Chronic Assessment & Plan: Counselled regarding medication compliance and smoking cessation. The patient has been using nicotine patches and cutting back on number of cigarettes smoked. One pack now lasts 2-3 days. Plan: - Continue nicotine patches (4) Onychomycosis: Status: Chronic Assessment & Plan: Bilateral foot onychomycosis present currently under treatment with terbinafine. Plan: ? Continue terbinafine for onychomycosis Orders: Orders [place] echo doppler complete Today I10 - Essential (primary) hypertension Referrals Cardiology Office Procedures [facility] Level of Care Nursing/Assessment Patient Status: Established Patient Nursing Assessment/Reassessment: Medication Reconciliation, Update PMH in EMR and Vital Signs Coordination of Care: Complex Care and Chronic Disease 1-5, Consent,records obtained, informed consent, Education Simp Pt/Fam and Staff clarify orders Established Patient Charge Established Patient Point Assignment: 85 Established Patient Point Charge: EP Level 3 (80-115)
[2024-12-26 10:36] VITALS: BP 155/87; PULSE 110; RESP 16; TEMP 36.2; O2SAT 94
== END 2024-12-26 11:12 | disposition home or self-care (01) ==
LOC: HODAHC 10:18
PROVIDERS: PCP Student in an Organized Health Care Education/Training Program; Referring Provider Student in an Organized Health Care Education/Training Program; Supervising Provider Student in an Organized Health Care Education/Training Program; Visit Provider Student in an Organized Health Care Education/Training Program
DX: L03.116 Cellulitis of left lower limb (principal); L02.612 Cutaneous abscess of left foot; I10 Essential (primary) hypertension; Z71.6 Tobacco abuse counseling; F17.210 Nicotine dependence, cigarettes, uncomplicated; B35.1 Tinea unguium
CPT/HCPCS: 99213; G0463

== ENCOUNTER → 2025-01-02 | Outpatient (CLI) | payer MEDICAID, SELFPAY | END | disposition home or self-care (01) | LOC: SWHD 13:36 | PROVIDERS: PCP Student in an Organized Health Care Education/Training Program; Referring Provider Student in an Organized Health Care Education/Training Program; Visit Provider Student in an Organized Health Care Education/Training Program | DX: I96 Gangrene, not elsewhere classified (principal); L97.522 Non-pressure chronic ulcer of other part of left foot with fat layer exposed; L97.429 Non-pressure chronic ulcer of left heel and midfoot with unspecified severity; F17.200 Nicotine dependence, unspecified, uncomplicated; N18.30 Chronic kidney disease, stage 3 unspecified; D64.9 Anemia, unspecified; M19.09 Primary osteoarthritis, other specified site; Z79.4 Long term (current) use of insulin; R60.0 Localized edema | CPT/HCPCS: 99213; A9270; G0463 ==

== ENCOUNTER 2025-01-08 13:26 | Emergency (ER) | payer MEDICAID, SELFPAY ==
[2025-01-08 13:45] VITALS: BP 122/71; PULSE 100; RESP 18; TEMP 36.6; O2SAT 99; BMI 26.9
--- NOTE | 2025-01-08 13:56 | XR_ITS ---
Examination: Foot, left, 3 views Technique: AP, oblique, lateral views foot, 3 views Date and time of exam: January 08, 2025 1401 hours INDICATIONS: Chronic left foot pain beginning 6 months ago. FINDINGS: Moderate osteopenia Significant arthritic change first metatarsophalangeal joint, joint space narrowing and subarticular cyst formation 4 mm plantar bony calcaneal spur Soft tissue swelling dorsum of the foot IMPRESSION: Significant arthritic change first metatarsophalangeal joint
[2025-01-08] MEDS: KETOROLAC INJ 60 MG/2 ML VIAL 30 MG IM (14:04)
--- NOTE | 2025-01-08 14:31 | PD.EDRME ---
Rapid Medical Screening Exam E Arrival date/time: 01/08/25 13:26 64-year-old male presents to the emergency room with a chief complaint of sores to his left foot. Patient states he is seen by the wound clinic but states his pain has progressively gotten worse. I have greeted and performed a focused initial assessment of this patient. A comprehensive ED assessment and evaluation of the patient, analysis of all test results, and completion of the medical decision making process will be conducted by additional ED providers. Chief Complaint: Ankle/Foot Injury Time Seen by Provider: 01/08/25 13:29 Vital signs: Vital Signs Temperature 98 F 01/08/25 13:45 Pulse Rate 100 01/08/25 13:45 Respiratory Rate 18 01/08/25 13:45 Blood Pressure 122/71 01/08/25 13:45 Pulse Oximetry (%) 99 01/08/25 13:45 Oxygen Delivery Method Room Air 01/08/25 13:45 Vital signs reviewed by provider: Yes
[2025-01-08 15:03] LABS: Basophils # (Auto) 0.1 Thou/mm3 (0.0-0.2); Basophils % (Auto) 1 % (0-2.5); Eosinophils # (Auto) 0.1 Thou/mm3 (0.0-0.5); Eosinophils % (Auto) 1 % (0-10); Hematocrit 45.7 % (41.0-53.0); Hemoglobin 16.2 g/dL (13.5-16.0); Immature Granulocytes % (Auto) 0 % (0-0); Immature Granulocytes Auto 0.04 Thou/mm3 (0.00-0.00); Lymphocytes # (Auto) 1.8 Thou/mm3 (1.0-4.8); Lymphocytes % (Auto) 14 % (10-50); Mean Corpuscular HGB Conc 35.4 g/dl (31.0-37.0); Mean Corpuscular Hemoglobin 31.3 pg (25.0-35.0); Mean Corpuscular Volume 88 fL (80-100); Monocytes # (Auto) 0.8 Thou/mm3 (0.0-0.8); Monocytes % (Auto) 6 % (0-12); Neutrophils # (Auto) 9.8 Thou/mm3 (1.8-7.7); Neutrophils % (Auto) 78 % (37-80); Nucleated Red Blood Cell % 0 /100 WBC (0); Platelet Count 478 Thou/mm3 (140-440); Red Blood Count 5.18 Miln/mm3 (4.50-5.90); White Blood Count 12.7 Thou/mm3 (3.8-10.6)
[2025-01-08 15:28] LABS: Alanine Aminotransferase 19 U/L (10-49); Albumin, Serum 4.8 gm/dL (3.4-4.8); Albumin/Globulin Ratio 1.8 (1.2-2.2); Alkaline Phosphatase 70 U/L (46-116); Anion Gap 9 (7-16); Aspartate Amino Transferase 14 U/L (0-34); BUN/Creatinine Ratio 15 Ratio (12-20); Bilirubin,Total 0.5 mg/dL (0.3-1.2); Blood Urea Nitrogen 16 mg/dL (9-23); C-Reactive Protein 1.6 mg/dL (0.0-0.9); Calcium 9.2 mg/dL (8.3-10.6); Calcium (Corrected) 9.2 mg/dL (8.5-10.1); Carbon Dioxide 23.3 mMol/L (20.0-31.0); Chloride 103 mMol/L (98-107); Creatinine (Component) 1.1 mg/dL (0.6-1.3); Estimated Creatinine Clearance 71.9 mL/min (>60); Globulin 2.7 gm/dL (2.3-3.5); Glucose 116 mg/dL (74-106); Osmolality,Calculated 272 (275-295); Potassium 3.9 mMol/L (3.4-5.1); Procalcitonin 0.17 ng/ml (0.0-0.49); Sodium 135 mMol/L (136-145); Total Protein 7.5 gm/dL (5.7-8.2); eGFR > 60 See Note
[2025-01-08 15:45] VITALS: BP 96/63; PULSE 100; RESP 16; TEMP 37; O2SAT 96
[2025-01-08 16:00] LABS: Sed Rate (ESR) 48 mm/hr (0-20)
[2025-01-08 19:32] VITALS: BP 123/79; PULSE 89; RESP 18; TEMP 36.6; O2SAT 98
--- NOTE | 2025-01-08 19:54 | PD.EDANKLE ---
Lower Extremity Injury RME/HPI General Chief Complaint: Ankle/Foot Injury Stated Complaint: LEFT FOOT VASCULAR ISSUE Time Seen by Provider: 01/08/25 13:29 Arrival date/time: 01/08/25 13:26 RME / HPI RME / HPI Narrative: 01/08/25 13:26 64-year-old male presents to the emergency room with a chief complaint of sores to his left foot. Patient states he is seen by the wound clinic but states his pain has progressively gotten worse. I have greeted and performed a focused initial assessment of this patient. A comprehensive ED assessment and evaluation of the patient, analysis of all test results, and completion of the medical decision making process will be conducted by additional ED providers. Related Data Previous Rx's ?Medication ?Instructions ?Recorded miscellaneous medical supply #1 ea 11/17/24 (Blood Pressure Cuff) hydrocodone 5 mg-acetaminophen 325 1 tab PO BID PRN pain #30 tabs 12/22/25 mg tablet losartan 50 mg-hydrochlorothiazide 1 tab PO QDAY #30 tabs 12/26/24 12.5 mg tablet nicotine 21 mg/24 hr daily 1 patch transdermal Q24H #28 ea 12/26/24 transdermal patch nifedipine 30 mg tablet,extended 30 mg PO QDAY #30 tabs 12/26/24 release docusate sodium 100 mg capsule 100 mg PO BID #30 caps 01/08/25 (Colace) meloxicam 15 mg tablet 15 mg PO QDAY #10 tabs 01/08/25 Allergies Allergy/AdvReac Type Severity Reaction Status Date / Time SEA FOOD Allergy Uncoded 01/10/25 10:00 ED Exam Narrative Physical exam: Left lower extremity edema, 3+. Right lower extremity 1+ pitting. Negative Homans' sign. No calf tenderness. No greater saphenous vein tenderness. Wound noted to the left fifth metatarsal phalangeal joint with what appears to be Medihoney. Course Orders Category Date Time Status Wound Care NOW Care 01/08/25 19:46 Completed XR foot comp LT min 3V Stat Exams 01/08/25 13:56 Completed Blood Culture (Lab) Stat Lab 01/08/25 14:37 Results CBC Stat Lab 01/08/25 14:37 Completed CMP [Comprehensive Metabolic Panel] Stat Lab 01/08/25 14:37 Completed CRP [C-Reactive Protein] Stat Lab 01/08/25 14:37 Completed ESR [Sed Rate (ESR)] Stat Lab 01/08/25 14:37 Completed Lactic Acid [Lactate (Lactic Acid)] Stat Lab 01/08/25 14:37 Completed Procalcitonin Stat Lab 01/08/25 14:37 Completed Ketorolac Inj [Toradol Inj] Med 01/08/25 13:56 Discontinued 30 mg IM X1 ONE Vital Signs Vital signs: Vital Signs Temperature 98 F 01/08/25 13:45 Pulse Rate 100 01/08/25 13:45 Respiratory Rate 18 01/08/25 13:45 Blood Pressure 122/71 01/08/25 13:45 Pulse Oximetry (%) 99 01/08/25 13:45 Oxygen Delivery Method Room Air 01/08/25 13:45 Extremity Injury, Lower MDM Narrative MDM Narrative:: Discussed case with Dr. Christiansen. He does not recommend lower extremity ultrasound at this time. Medications / Prescriptions Medication administrations:: Medication Administration History Discontinued Medications Ketorolac Tromethamine (Ketorolac Inj 60 Mg/2 Ml Vial) 30 mg IM X1 ONE Stop: 01/08/25 13:57 Last Admin: 01/08/25 14:04 Dose: 30 mg Documented By: Discharge Plan Plan Patient Disposition: HOME (Self Care) Discharge Disposition comment: Stable Prescriptions/Referrals Prescriptions/Med Rec: New meloxicam 15 mg tablet 15 mg PO QDAY Qty: 10 0RF docusate sodium [Colace] 100 mg capsule 100 mg PO BID Qty: 30 0RF No Action losartan-hydrochlorothiazide 50-12.5 mg tablet 1 tab PO QDAY Qty: 30 2RF nifedipine 30 mg tablet extended release 30 mg PO QDAY Qty: 30 2RF nicotine 21 mg/24 hr patch 24 hour 1 patch transdermal Q24H Qty: 28 2RF (DME) Blood Pressure Cuff Misc See Rx Instructions .Route Qty: 1 0RF Rx Instructions: As directed hydrocodone-acetaminophen 5-325 mg tablet 1 tab PO BID MDD 2 PRN (Reason: pain) Qty: 30 0RF Referrals: Kevin Sun MD [Primary Care Provider] - In 1 week Problem List Clinical Impression: Arterial insufficiency of lower extremity Patient/Caregiver Discharge Instructions Other Activity Instructions:: You can take additional doses of gabapentin for better pain control. For severe pain, you can take 2 tablets of the 5 mg hydrocodone tablets. Education Materials: PAD Additional Instructions: Follow-up with your vascular surgeon as well as wound care. Contact your vascular surgeon to find out the results of the most recent ultrasound on your leg. Follow-up with your primary care physician in 24 to 48 hours. Return to the ED for any new or worsening symptoms. Print Language: Faroese Stand Alone Forms: Sara Award Info., Patient Portal Info Letter PA/HVAC SERVICES PROFESSIONAL Supervising Physician PA/HVAC SERVICES PROFESSIONAL Supervising Physician: Dr Christiansen
== END 2025-01-08 20:31 | disposition home or self-care (01) ==
PROVIDERS: Nurse Practitioner Family; Emergency Provider Family Medicine; PCP Student in an Organized Health Care Education/Training Program
DX: I77.1 Stricture of artery (principal)
CPT/HCPCS: 36415; 73630; 80053; 83605; 84145; 85025; 85652; 86140; 87040; 96372; 99283; J1885

== ENCOUNTER 2025-01-10 09:57 | Emergency (ER) | payer MEDICAID, SELFPAY ==
[2025-01-10 10:18] VITALS: BP 120/77; PULSE 102; RESP 18; TEMP 37.3; O2SAT 96; BMI 27.3
--- NOTE | 2025-01-10 10:24 | XR_ITS ---
Examination: Arterial duplex lower extremity, unilateral left Date and time of exam: January 10, 2025 1130 hours INDICATIONS: Left leg pain beginning 4 months ago Findings: Duplex sonographic imaging of the lower extremity arteries using B-mode/Saldaña scale imaging and Doppler spectral analysis and color flow. . Left common femoral artery demonstrates monophasic flow. Left superficial femoral artery demonstrates moderate flow. Left popliteal artery demonstrates monophasic flow. Left posterior tibial artery demonstrated monophasic flow. Impression: Significant obstructive arterial disease left lower extremity, consider correlation with CTA abdominal aorta iliofemoral runoff post intravenous contrast
--- NOTE | 2025-01-10 10:24 | PD.EDRME ---
Rapid Medical Screening Exam E Arrival date/time: 01/10/25 09:57 64-year-old male presents emergency dept today for complaints of left lower extremity pain patient reports been following up with business control specialist but reports pain persist Chief Complaint: Extremity Injury, Lower Time Seen by Provider: 01/10/25 15:18 Vital signs: Vital Signs Temperature 99.1 F 01/10/25 10:18 Pulse Rate 102 H 01/10/25 10:18 Respiratory Rate 18 01/10/25 10:18 Blood Pressure 120/77 01/10/25 10:18 Pulse Oximetry (%) 96 01/10/25 10:18 Oxygen Delivery Method Room Air 01/10/25 10:18
[2025-01-10] MEDS: KETOROLAC INJ 30 MG/ML VIAL IM (10:53)
--- NOTE | 2025-01-10 13:52 | XR_ITS ---
Examination: CTA abdominal aorta iliofemoral runoff. 2-D sagittal coronal reconstructions. 3-D reconstructions, vascular January 11, 2025 at 0037 hours INDICATIONS: Left foot pain beginning 6 months ago, abnormal arterial Doppler left lower extremity monophasic waveforms Technique: Multiple CTA images of the abdominal aorta iliofemoral runoff arterial vessels, 2.0 mm slice thickness, post intravenous administration 130 cc Isovue 370 2-D sagittal coronal reconstructions. 3-D reconstructions, vascular 3-D postprocessing, including vascular maximum intensity projection images, 3-D volume rendering Low dose protocols were performed. One or more of the following dose reduction techniques were used; automated exposure control, adjustment of the mA and/or KV according to patient size, use of iterative reconstruction technique. Findings: No focal liver or splenic lesions No gallstones No pancreatic mass Nodular thickening left adrenal gland No hydronephrosis No bowel obstruction Small fat-containing inguinal hernia Normal appendix Urinary bladder is intact. No abdominal aortic aneurysmal dilatation Occlusion of the distal right superficial femoral artery Reconstitution of the right popliteal artery Occlusion of the proximal right anterior tibial artery Occlusion of the left common femoral artery axial image 226 Attenuated left superficial femoral artery does fill as well as popliteal artery Occlusion of the proximal left anterior tibial artery Diffuse edema in the left lower extremity especially lower leg IMPRESSION: Occlusion of the distal right superficial femoral artery Occlusion of the proximal right anterior tibial artery Occlusion of the left common femoral artery Occlusion of the proximal left anterior tibial artery
[2025-01-10 15:21] LABS: Basophils # (Auto) 0.1 Thou/mm3 (0.0-0.2); Basophils % (Auto) 1 % (0-2.5); Eosinophils # (Auto) 0.1 Thou/mm3 (0.0-0.5); Eosinophils % (Auto) 1 % (0-10); Hematocrit 42.6 % (41.0-53.0); Hemoglobin 14.8 g/dL (13.5-16.0); Immature Granulocytes % (Auto) 0 % (0-0); Immature Granulocytes Auto 0.04 Thou/mm3 (0.00-0.00); Lymphocytes # (Auto) 2.2 Thou/mm3 (1.0-4.8); Lymphocytes % (Auto) 18 % (10-50); Mean Corpuscular HGB Conc 34.7 g/dl (31.0-37.0); Mean Corpuscular Hemoglobin 31.5 pg (25.0-35.0); Mean Corpuscular Volume 91 fL (80-100); Monocytes % (Auto) 8 % (0-12); Neutrophils # (Auto) 8.7 Thou/mm3 (1.8-7.7); Neutrophils % (Auto) 72 % (37-80); Nucleated Red Blood Cell % 0 /100 WBC (0); Platelet Count 460 Thou/mm3 (140-440); RDW Standard Deviation 40.2 fL (35.1-43.9)
[2025-01-10 15:39] LABS: Alanine Aminotransferase 14 U/L (10-49); Albumin, Serum 4.4 gm/dL (3.4-4.8); Albumin/Globulin Ratio 1.8 (1.2-2.2); Alkaline Phosphatase 64 U/L (46-116); Anion Gap 7 (7-16); Aspartate Amino Transferase 11 U/L (0-34); BUN/Creatinine Ratio 20 Ratio (12-20); Bilirubin,Total 0.3 mg/dL (0.3-1.2); Blood Urea Nitrogen 22 mg/dL (9-23); Calcium 8.7 mg/dL (8.3-10.6); Calcium (Corrected) 8.7 mg/dL (8.5-10.1); Carbon Dioxide 24.3 mMol/L (20.0-31.0); Chloride 106 mMol/L (98-107); Creatinine (Component) 1.1 mg/dL (0.6-1.3); Estimated Creatinine Clearance 69.6 mL/min (>60); Globulin 2.4 gm/dL (2.3-3.5); Glucose 111 mg/dL (74-106); Osmolality,Calculated 278 (275-295); Potassium 3.7 mMol/L (3.4-5.1); Sodium 137 mMol/L (136-145); Total Protein 6.8 gm/dL (5.7-8.2); eGFR > 60 See Note
--- NOTE | 2025-01-10 17:46 | PC.NURSE ---
GAVE PT ICE WATER, APPROVED BY PROVIDER PAULA
[2025-01-10] MEDS: MORPHINE SULF INJ 10 MG/ML VIAL 5 MG IM (18:08)
[2025-01-10] MEDS: FAMOTIDINE INJ 10 MG/ML VIAL 2 ML 20 MG IVP (21:51)
[2025-01-10] MEDS: MethylPREDNISolone SOD SUCC 62.5 MG/ML 2ML VIAL 125 MG IVP (21:55)
[2025-01-10] MEDS: DiphenhydrAMINE INJ 50 MG/ML VIAL IVP (21:56)
[2025-01-11 00:20] VITALS: BP 131/75; PULSE 87; RESP 18; TEMP 36.7; O2SAT 94
[2025-01-11] MEDS: MORPHINE SULF INJ 10 MG/ML VIAL 5 MG IVP (00:26)
[2025-01-11] MEDS: DIAZEPAM 5 MG TABLET PO (00:26)
[2025-01-11 02:28] VITALS: BP 131/73; PULSE 94; RESP 17; TEMP 36.9; O2SAT 95
--- NOTE | 2025-01-11 02:36 | PRELIM_ITS ---
CT angiogram of the abdomen and bilateral lower extremities with intravenous contrast (axial sections with sagittal and coronal reformats) January 11, 2025 at 0037 hours Clinical History: Left lower extremity severe pain. Comparison: No prior study is available for comparison. Findings: Clear lung bases. The liver, gallbladder, spleen, pancreas are unremarkable. Normal adrenal glands and kidneys. Bowel caliber is normal. The appendix is normal, best seen on image 159. The urinary bladder is normal. No free intraperitoneal air or fluid. Fat-containing bilateral inguinal hernias. There are a few mildly prominent fluid filled jejunal loops. Grade 1 5 spondylolysis. No acute osseous process. There is atherosclerotic calcification of the aorta without aneurysm or dissection. Celiac, superior and inferior mesenteric, bilateral renal arteries are patent. Right lower extremity: Common, internal and external iliac, common femoral, and profunda femoral arteries are patent. The distal right superficial femoral artery is occluded. The mid popliteal artery is reconstituted. The mid anterior tibial artery is occluded. Dorsalis pedis artery is reconstituted. Posterior tibial and peroneal arteries are patent to the ankle. Left lower extremity: Common, internal and external iliac arteries are patent. Common femoral artery is occluded. Superficial and profunda femoral arteries are reconstituted. Popliteal artery is patent. Anterior tibial artery is occluded proximally. Posterior tibial and peroneal arteries are patent. Dorsalis pedis artery is reconstituted. There is diffuse subcutaneous edema in the calf and foot. Impression: 1. Occluded distal right superficial femoral artery. 2. Occluded right anterior tibial artery. 3. Occluded left common femoral artery and anterior tibial artery. 4. Lower extremity edema, of concern for cellulitis. Discussion Details: Results verbally communicated to : VISHNU Mitchell at 02:19 AM 01/11/2025 Report Electronically Signed By: Surinder Goodman 01/11/2025 2:36:10 AM [EST]
--- NOTE | 2025-01-11 03:22 | EDNOTE_ITS ---
ED General RME/HPI General Chief complaint: Extremity Injury, Lower Stated complaint: LEFT FOOT PAIN FROM WOUND Time Seen by Provider: 01/10/25 15:18 Arrival date/time: 01/10/25 09:57 64-year-old male presents to the ED with a complaint of left lower extremity severe pain. He is being treated at the wound care clinic, weekly, for an ulceration to his left lateral foot in the fifth metatarsal phalangeal joint area. He is under the care of a vascular surgeon since December 18. He has had both a venous and arterial duplex of the left lower extremity that was ordered by his vascular surgeon however those results are unknown to the patient. Multiple venous duplex exams have been performed here since the beginning of the year which have all been negative. Mode of arrival: ambulatory Limitations: no limitations RME / HPI RME / HPI narrative: 01/10/25 09:57 64-year-old male presents emergency dept today for complaints of left lower extremity pain patient reports been following up with qa specialist but reports pain persist Related Data Previous Rx's ?Medication ?Instructions ?Recorded miscellaneous medical supply #1 ea 11/17/24 (Blood Pressure Cuff) hydrocodone 5 mg-acetaminophen 325 1 tab PO BID PRN pa in #30 tabs 12/22/24 mg tablet losartan 50 mg-hydrochlorothiazide 1 tab PO QDAY #30 t abs 12/26/24 12.5 mg tablet nicotine 21 mg/24 hr daily 1 patch transdermal Q24H #2 8 ea 12/26/24 transdermal patch nifedipine 30 mg tablet,extended 30 mg PO QDAY #30 tab s 12/26/24 release docusate sodium 100 mg capsule 100 mg PO BID #30 caps 01/08/25 (Colace) meloxicam 15 mg tablet 15 mg PO QDAY #10 tabs 01/08 Allergies Allergy/AdvReac Type Severity Reaction Status Date / Time SEA FOOD Allergy Uncoded 01/10/25 10:00 Review of Systems Review of Systems Systems Reviewed: All systems reviewed, normal except as documented ED Exam Narrative Physical exam: Left lower extremity edema, 3+. Right lower extremity 1+ pitting edema. Negative Homans' sign. No calf tenderness. No greater saphenous vein tenderness. Wound noted to the left medial 1st MTP joint with eschar, as well as left lateral fifth MTP joint with eschar. No palpable pedal pulse. General Limitations: Present no limitations Course Course Course Narrative: 64-year-old male presents to the ED with a complaint of left lower extremity sev ere pain. He is being treated at the wound care clinic, weekly, for an ulceration to his left lateral foot in the fifth metatarsal phalangeal joint area. He is under the care of a vascular surgeon since December 18. He has had both a venous and arterial duplex of the left lower extremity that was ordered by his vascular surgeon however those results are unknown to the patient. Multiple venous duplex exams have been performed here since the beginning of the year which have all been negative. Left lower extremity edema, 3+. Right lower extremity 1+ pitting. Negative Homans' sign. No calf tenderness. No greater saphenous vein tenderness. Wound noted to the left fifth metatarsal phalangeal joint with what appears to be Medihoney. Vital signs are stable at 120/77, P102, RR 18, T99.1, O2 sat 96% on room air. CBC reveals WBCs 12.0, normal H&H, platelets 460, ANC 8.7. CMP is essentially normal with the exception of a glucose of 111. LLE Arterial Duplex: Impression: Significant obstructive arterial disease left lower extremity CT Angio: Impression: 1. Occluded distal right superficial femoral artery. 2. Occluded right anterior tibial artery. 3. Occluded left common femoral artery and anterior tibial artery. 4. Lower extremity edema, of concern for cellulitis due to diffuse subcutaneous edema in the calf and foot. A call was placed to [facility] for Transfer to Higher level of care for Vascular Surgery. Dr. Bailey agrees to see the patient. And recommends ER to ER transfer. Quality Measures none Orders Category Date Time Status CT Screening NOW Care 01/10/25 13:52 Active IV [Insert IV] NOW Care 01/10/25 13:[address] angio abd ilio fem runoff Stat Exams 01/10/25 13:52 Taken US arterial duplex LE LT Stat Exams 01/10/25 10:24 Completed CBC Stat Lab 01/10/25 15:06 Completed CMP [Comprehensive Metabolic Panel] Stat Lab 01/10/25 15:06 Completed Diazepam [Valium] Med 01/10/25 23:36 Discontinued 5 mg PO X1 ONE DiphenhydrAMINE INJ [Benadryl Inj] Med 01/10/25 18:47 Discontinued 50 mg IVP X1 ONE Famotidine Inj [Pepcid Inj] Med 01/10/25 18:49 Discontinued 20 mg IVP X1 ONE Ketorolac Inj [Toradol Inj] Med 01/10/25 10:24 Discontinued 30 mg IM X1 ONE MethylPREDNISolone.* [SoluMEDROL Inj] Med 01/10/25 18:47 Discontinued 125 mg IVP X1 ONE Morphine Inj Med 01/10/25 15:39 Discontinued 5 mg IM X1 ONE Morphine Inj Med 01/10/25 23:36 Discontinued 5 mg IVP X1 ONE Nicotine Patch [Nicoderm Patch] Med 01/11/25 03:21 Discontinued 21 mg TOP X1 ONE Ondansetron Odt [Zofran Odt] Med 01/10/25 15:39 Discontinued 4 mg PO X1 ONE Vital Signs Vital signs: Vital Signs Temperature 99.1 F 01/10/25 10:18 Pulse Rate 102 H 01/10/25 10:18 Respiratory Rate 18 01/10/25 10:18 Blood Pressure 120/77 01/10/25 10:18 Pulse Oximetry (%) 96 01/10/25 10:18 Oxygen Delivery Method Room Air 01/10/25 10:18 Discharge Plan Plan Patient Disposition: [facility] Pt Being Transferred to: [facility] Service Needed for Transfer: Vascular Surgery Patient condition on transfer: Stable and Benefits outweigh risks Prescriptions/Referrals Prescriptions/Med Rec: No Action losartan-hydrochlorothiazide 50-12.5 mg tablet 1 tab PO QDAY Qty: 30 2RF nifedipine 30 mg tablet extended release 30 mg PO QDAY Qty: 30 2RF nicotine 21 mg/24 hr patch 24 hour 1 patch transdermal Q24H Qty: 28 2RF (DME) Blood Pressure Cuff Misc See Rx Instructions .Route Qty: 1 0RF Rx Instructions: As directed meloxicam 15 mg tablet 15 mg PO QDAY Qty: 10 0RF docusate sodium [Colace] 100 mg capsule 100 mg PO BID Qty: 30 0RF hydrocodone-acetaminophen 5-325 mg tablet 1 tab PO BID MDD 2 PRN (Reason: pain) Qty: 30 0RF Referrals: No Primary/Family,Physician [Primary Care Provider] - In 1 week Problem List Clinical Impression: Arterial occlusion, lower extremity, Smoking addiction Patient/Caregiver Discharge Instructions Education Materials: PAD, ED How to Quit Smoking Additional Instructions: Follow-up with your primary care physician in 24 to 48 hours. Return to the ED for any new or worsening symptoms. Print Language: Khmer Stand Alone Forms: Sara Award Info., Patient Portal Info Letter PA/TARIFF CLERK Supervising Physician PA/DEJAN Supervising Physician: Dr. Kelli TALLEY Narrative MDM hospital course (for use when minimal MDM required): 64-year-old male presents to the ED with a complaint of left lower extremity severe pain. He is being treated at the wound care clinic, weekly, for an ulceration to his left lateral foot in the fifth metatarsal phalangeal joint area. He is under the care of a vascular surgeon since December 18. He has had both a venous and arterial duplex of the left lower extremity that was ordered by his vascular surgeon however those results are unknown to the patient. [facility] venous duplex exams have been performed here since the beginning of the year which have all been negative. Left lower extremity edema, 3+. Right lower extremity 1+ pitting. Negative Homans' sign. No calf tenderness. No greater saphenous vein tenderness. Wound noted to the left fifth metatarsal phalangeal joint with what appears to be Medihoney. Vital signs are stable at 120/77, P102, RR 18, T99.1, O2 sat 96% on room air. CBC reveals WBCs 12.0, normal H&H, platelets 460, ANC 8.7. CMP is essentially normal with the exception of a glucose of 111. LLE Arterial Duplex: Impression: Significant obstructive arterial disease left lower extremity CT Angio: Impression: 1. Occluded distal right superficial femoral artery. 2. Occluded right anterior tibial artery. 3. Occluded left common femoral artery and anterior tibial artery. 4. Lower extremity edema, of concern for cellulitis due to diffuse subcutaneous edema in the calf and foot. A call was placed to [facility] for Transfer to Higher level of care for Vascular Surgery. Dr. Bailey agrees to see the patient. And recommends ER to ER transfer. Clinical Information Provided by: patient Medical [facility] and PCP / Clinic Meds/Rx considered, not ordered None Labs/Rad/Tests considered, not ordered None Chronic Illness/Social Conditions which may negatively complicate care or outcome(s)-explain: other (Tobacco addiction) Labs Labs: Interpreted by ri Lab(s) Interpretation(s): CBC reveals WBCs 12.0, normal H&H, platelets 460, ANC 8.7. CMP is essentially normal with the exception of a glucose of 111. Imaging Imaging Interpretation(s): Arterial Duplex: Findings: Duplex sonographic imaging of the lower extremity arteries using B-mode/Saldaña scale imaging and Doppler spectral analysis and color flow. . Left common femoral artery demonstrates monophasic flow. Left superficial femoral artery demonstrates moderate flow. Left popliteal artery demonstrates monophasic flow. Left posterior tibial artery demonstrated monophasic flow. Impression: Significant obstructive arterial disease left lower extremity, consider correlation with CTA abdominal aorta iliofemoral runoff post intravenous contrast CT Angio: Impression: 1. Occluded distal right superficial femoral artery. 2. Occluded right anterior tibial artery. 3. Occluded left common femoral artery and anterior tibial artery. 4. Lower extremity edema, of concern for cellulitis due to diffuse subcutaneous edema in the calf and foot. Medication Administration(s) Medication Administration History Discontinued Medications Diazepam (Diazepam 5 Mg Tablet) 5 mg PO X1 ONE Stop: 01/10/25 23:37 Last Admin: 01/11/25 00:26 Dose: 5 mg Documented By: DAGOBERTO Diphenhydramine HCl (Diphenhydramine Inj 50 Mg/Ml Vial) 50 mg IVP X1 ONE Stop: 01/10/25 18:48 Last Admin: 01/10/25 21:56 Dose: 50 mg Documented By: Famotidine (Famotidine Inj 10 Mg/Ml Vial 2 Ml) 20 mg IVP X1 ONE Stop: 01/10/25 18:50 Last Admin: 01/10/25 21:51 Dose: 20 mg Documented By: Ketorolac Tromethamine (Ketorolac Inj 30 Mg/Ml Vial) 30 mg IM X1 ONE Stop: 01/10/25 10:25 Last Admin: 01/10/25 10:53 Dose: 30 mg Documented By: PACHECO Methylprednisolone Sodium Succinate (Methylprednisolone Sod Succ 62.5 Mg/Ml 2ml Vial) 125 mg IVP X1 ONE Stop: 01/10/25 18:48 Last Admin: 01/10/25 21:55 Dose: 125 mg Documented By: Morphine Sulfate (Morphine Sulf Inj 10 Mg/Ml Vial) 5 mg IM X1 ONE Stop: 01/10/25 15:40 Last Admin: 01/10/25 18:08 Dose: 5 mg Documented By: PACHECO Morphine Sulfate (Morphine Sulf Inj 10 Mg/Ml Vial) 5 mg IVP X1 ONE Stop: 01/10/25 23:37 Last Admin: 01/11/25 00:26 Dose: 5 mg Documented By: DAGOBERTO Nicotine (Nicotine Patch 21 Mg/24 Hr Patch.Td24) 21 mg TOP X1 ONE Stop: 01/11/25 03:22 Last Admin: 01/11/25 04:52 Dose: 21 mg Documented By: DT Ondansetron HCl (Ondansetron Odt 4 Mg Tabrap) 4 mg PO X1 ONE; Protocol Stop: 01/10/25 15:40 Last Admin: 01/10/25 20:14 Dose: Not Given Documented By: Non-Admin Reason: Patient Refused Toradol 30 mg IM, morphine sulfate 5 mg IM x 1, methylprednisolone 125 mg IVP, diphenhydramine 50 mg IVP, famotidine 20 mg IVP, morphine 5 mg IVP, diazepam 5 mg p.o., ondansetron 4 mg p.o., nicotine patch 21 mg/24-hour patch. Diagnosis Differential Diagnosis ED Complaint MDM: DVT, Cellulitis, Arterial Occlusion, Gas Gangrene Diagnoses ruled out and/or further discussions: DVT
[2025-01-11 04:12] VITALS: BP 139/79; PULSE 93; RESP 14; TEMP 36.8; O2SAT 94
[2025-01-11] MEDS: NICOTINE PATCH 21 MG/24 HR PATCH.TD24 TOP (04:52)
--- NOTE | 2025-01-11 05:23 | PC.NURSE ---
NURSE TO NURSE REPORT GIVEN TO ELISABETH SCOTT @ 0416 AT [facility].
[2025-01-11 05:30] VITALS: BP 131/86; PULSE 89; RESP 18; TEMP 36.7; O2SAT 95
[2025-01-11] MEDS: HYDROmorphone INJ 2 MG/ML VIAL IVP (05:48)
[2025-01-11 06:00] VITALS: BP 135/75; PULSE 78; RESP 16; TEMP 36.7; O2SAT 98
== END 2025-01-11 06:10 | disposition short-term general hospital (02) ==
PROVIDERS: Nurse Practitioner Primary Care; Emergency Provider Family Medicine
DX: I77.1 Stricture of artery (principal); F17.210 Nicotine dependence, cigarettes, uncomplicated
CPT/HCPCS: 36415; 75635; 80053; 85025; 93926; 96372; 96374; 96375; 99285; A4649; J1171; J1200; J1885; J2270; J2919; J3490; Q9967; A9270

== ENCOUNTER 2025-01-18 17:27 | Emergency (ER) | payer MEDICAID, SELFPAY ==
[2025-01-18 17:29] VITALS: BMI 26.6
[2025-01-18 17:44] VITALS: BP 141/80; PULSE 100; RESP 18; TEMP 37.1; O2SAT 98
--- NOTE | 2025-01-18 18:23 | PD.EDANKLE ---
Lower Extremity Injury RME/HPI General Chief Complaint: Ankle/Foot Injury Stated Complaint: FOOT PAIN S/P SURGERY AT [facility] ON SUNDAY Time Seen by Provider: 01/18/25 18:20 Source: patient, RN notes reviewed and old records reviewed Arrival date/time: 01/18/25 17:27 Mode of arrival: ambulatory Limitations: no limitations RME / HPI RME / HPI Narrative: 64yom presents to ED for medication refill. 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 Patient states he ran out of his norco and his pain increased today. Still taking gabapentin and tried otc tylenol with little relief. Patient has wound care tomorrow morning and states he will get medication refill in the morning but needs something for tonight. Related Data Previous Rx's ?Medication ?Instructions ?Recorded miscellaneous medical supply #1 ea 11/17/24 (Blood Pressure Cuff) hydrocodone 5 mg-acetaminophen 325 1 tab PO BID PRN pain #30 tabs 12/22/25 mg tablet losartan 50 mg-hydrochlorothiazide 1 tab PO QDAY #30 tabs 12/26/24 12.5 mg tablet nicotine 21 mg/24 hr daily 1 patch transdermal Q24H #28 ea 12/26/24 transdermal patch nifedipine 30 mg tablet,extended 30 mg PO QDAY #30 tabs 12/26/24 release docusate sodium 100 mg capsule 100 mg PO BID #30 caps 01/08/25 (Colace) meloxicam 15 mg tablet 15 mg PO QDAY #10 tabs 01/08/25 Allergies Allergy/AdvReac Type Severity Reaction Status Date / Time bee venom protein (honey bee) Allergy Severe Swelling Verified 01/18/25 17:34 of Lip/Tongue/Throat Fish Containing Products Allergy Severe Swelling Verified 01/18/25 17:34 of Lip/Tongue/Throat shellfish derived Allergy Severe Swelling Verified 01/18/25 17:34 of Lip/Tongue/Throat Review of Systems Review of Systems Systems Reviewed: All systems reviewed, normal except as documented Past Medical History Past Medical History CARDIAC: Negative Congestive Heart Failure RESPIRATORY: Negative Chronic Obstructive Pulmonary Disease (COPD) GENITOURINARY: Negative Renal Disease ENDOCRINE: Negative Diabetes Mellitus Type 1 or Diabetes Mellitus Type 2 Social History SMOKING STATUS: Heavy (> 1 pack/day) ED Exam General Limitations: Present no limitations General appearance: Present alert and in no apparent distress Head Head exam: Present atraumatic and normocephalic Eye Eye exam: Present normal appearance, PERRL and EOMI ENT ENT exam: Present normal exam and mucous membranes moist Neck Neck exam: Present normal inspection and full ROM Chest Chest inspection: Present normal inspection and symmetric chest wall rise Respiratory Respiratory exam: Present normal lung sounds bilaterally; Absent respiratory distress Cardiovascular Cardiovascular exam: Present regular rate and normal rhythm Extremities Exam Extremities exam: Present other (Left foot in postop shoe ) Neurological Exam Neurological exam: Present alert and oriented X3 Psychiatric Psychiatric exam: Present normal affect and normal mood Skin Skin exam: Present warm, dry, intact and normal color Course Quality Measures none Orders Category Date Time Status HYDROcodone/APAP 10/325 [Ellabell 10/325] Med 01/18/25 18:22 Discontinued 1 tab PO X1 ONE Vital Signs Vital signs: Vital Signs Temperature 98.7 F 01/18/25 17:44 Pulse Rate 100 01/18/25 17:44 Respiratory Rate 18 01/18/25 17:44 Blood Pressure 141/80 H 01/18/25 17:44 Pulse Oximetry (%) 98 01/18/25 17:44 Oxygen Delivery Method Room Air 01/18/25 17:44 Extremity Injury, Lower MDM Narrative MDM Narrative:: 64yom presents to ED for medication refill. 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 Patient states he ran out of his norco and his pain increased today. Still taking gabapentin and tried otc tylenol with little relief. Patient has wound care tomorrow morning and states he will get medication refill in the morning but needs something for tonight. Patient given Ellabell tab in ED. Encouraged close follow-up with wound care in morning for new prescription refill. Stable for discharge, RTED precautions given. Patient data External records reviewed:: [facility] previous records (01/10/25 ED visit for femoral artery occlusion) Clinical information provided by:: patient Social determinants that could affect healthcare access:: none Patient has the following chronic illnesses:: PAD, CAD How is presenting disease/condition affected by chronic disease/condition?: exacerbated by Evaluation data The following diagnostics were reviewed and interpreted by me:: other (specify) (None) Lab and/or radiology exams considered but not ordered:: None Interpretation Summary: na Medications / Prescriptions Medications or Prescriptions considered but not ordered:: No narcotic prescriptions given at this time Medication administrations:: Medication Administration History Discontinued Medications Hydrocodone Bitart/Acetaminophen (Hydrocodone/Apap 10/325 Tab) 1 tab PO X1 ONE Stop: 01/18/25 18:23 Last Admin: 01/18/25 18:27 Dose: 1 tab Documented By: JUDIE Above medication administered in ED Consultations Consultation(s) initiated? (list below): No Diagnosis Extremity Injury, Lower Differential Diagnosis: other (msk pain, strain, contusion, postop pain) Most likely diagnosis given after review of the tests above:: Foot pain Admission Indicated Admission indicated?: not indicated Admission Request Was there a request for admission?: No Disposition Plan Disposition Plan: Discharge Discharge Attestation Discharge Attestation: The patient and all family members were given an opportunity to ask questions and understood the discharge instructions. Discharge instructions specifically effects, indications for sooner follow up or return to the emergency department, and the expected course of current diagnosis. Patient condition: Stable Discharge Plan Plan Patient Disposition: HOME (Self Care) Patient condition on transfer: Stable Prescriptions/Referrals Prescriptions/Med Rec: No Action losartan-hydrochlorothiazide 50-12.5 mg tablet 1 tab PO QDAY Qty: 30 2RF nifedipine 30 mg tablet extended release 30 mg PO QDAY Qty: 30 2RF nicotine 21 mg/24 hr patch 24 hour 1 patch transdermal Q24H Qty: 28 2RF (DME) Blood Pressure Cuff Misc See Rx Instructions .Route Qty: 1 0RF Rx Instructions: As directed meloxicam 15 mg tablet 15 mg PO QDAY Qty: 10 0RF docusate sodium [Colace] 100 mg capsule 100 mg PO BID Qty: 30 0RF hydrocodone-acetaminophen 5-325 mg tablet 1 tab PO BID MDD 2 PRN (Reason: pain) Qty: 30 0RF Problem List Clinical Impression: Left foot pain Patient/Caregiver Discharge Instructions Print Language: Malagasy Stand Alone Forms: Sara Award Info., Patient Portal Info Letter PA/[employer] Supervising Physician PA/[employer] Supervising Physician: Ramo
[2025-01-18] MEDS: HYDROcodone/APAP 10/325 TAB PO (18:27)
== END 2025-01-18 18:41 | disposition home or self-care (01) ==
LOC: SERX 18:51
PROVIDERS: Emergency Provider Emergency Medicine; PCP Family Medicine
DX: M79.672 Pain in left foot (principal)
CPT/HCPCS: 99283; A9270

== ENCOUNTER → 2025-01-19 | Outpatient (CLI) | payer MEDICAID, SELFPAY | END | disposition home or self-care (01) | PROVIDERS: PCP Student in an Organized Health Care Education/Training Program; Referring Provider Student in an Organized Health Care Education/Training Program; Visit Provider Student in an Organized Health Care Education/Training Program | DX: I96 Gangrene, not elsewhere classified (principal); L97.522 Non-pressure chronic ulcer of other part of left foot with fat layer exposed; L97.429 Non-pressure chronic ulcer of left heel and midfoot with unspecified severity; F17.200 Nicotine dependence, unspecified, uncomplicated; N18.30 Chronic kidney disease, stage 3 unspecified; D64.9 Anemia, unspecified; M19.09 Primary osteoarthritis, other specified site; Z79.4 Long term (current) use of insulin; R60.0 Localized edema | CPT/HCPCS: 97597; A9270 ==

== ENCOUNTER 2025-01-23 10:01 | Outpatient (AMB) | payer MEDICAID, SELFPAY ==
[2025-01-23 09:51] VITALS: BP 123/76; PULSE 89; RESP 18; TEMP 36.1; O2SAT 98; BMI 27.0
--- NOTE | 2025-01-23 09:51 | PD.RESCLINIC ---
Vital Signs 01/23/25 09:51 Height 1.75 m Height Method Stated Weight 83.064 kg Weight Measurement Method Standing Scale BMI 27.0 BP 123/76 Blood Pressure Source Automatic Cuff Blood Pressure Location Right Upper Arm Position Sitting Respiration 18 Pulse 89 Pulse Source Monitor Temp 96.9 F Temp Source Temporal Artery Scan Pulse Oximetry (%) 98 Oxygen Delivery Method Room Air Allergies/Meds Allergies & Medications Allergies bee venom protein (honey bee) Allergy (Severe, Verified 01/23/25 09:54) Swelling of Lip/Tongue/Throat Fish Containing Products Allergy (Severe, Verified 01/23/25 09:54) Swelling of Lip/Tongue/Throat shellfish derived Allergy (Severe, Verified 01/23/25 09:54) Swelling of Lip/Tongue/Throat Medication Reconciliation miscellaneous medical supply (Blood Pressure Cuff) #1 ea 11/17/24 [Rx Confirmed 01/23/25] hydrocodone 5 mg-acetaminophen 325 mg tablet 1 tab PO BID PRN pain #30 tabs 12/22/24 [Rx Confirmed 01/23/25] losartan 50 mg-hydrochlorothiazide 12.5 mg tablet 1 tab PO QDAY #30 tabs 12/26/24 [Rx Confirmed 01/23/25] nicotine 21 mg/24 hr daily transdermal patch 1 patch transdermal Q24H #28 ea 12/26/24 [Rx Confirmed 01/23/25] nifedipine 30 mg tablet,extended release 30 mg PO QDAY #30 tabs 12/26/24 [Rx Confirmed 01/23/25] docusate sodium 100 mg capsule (Colace) 100 mg PO BID #30 caps 01/08/25 [Rx Confirmed 01/23/25] meloxicam 15 mg tablet 15 mg PO QDAY #10 tabs 01/08/25 [Rx Confirmed 01/23/25] hydrocodone 5 mg-acetaminophen 325 mg tablet 1 tab PO BID PRN pain #14 tabs 01/19/25 [Rx Confirmed 01/23/25] MA Intake Visit Data Collection New Patient or Established: Established Patient (seen at [facility] within 3 years) Seen by Clinical Staff ONLY (RN/JASIEL): No Pain Present Currently: Yes Pain scale:: 5 Pain Scale Used: Abreu-Deng/Numerical Fraud Examiner Required: No PCP or OBGYN visit in last 3 months: Yes Date of Last PCP or OBGYN visit: 01/18/25 Hx Now: No Do You Feel Safe at Home: Yes Authorities Contacted: N/A Smoking Status Smoking Status: Heavy (> 1 pack/day) Cessation Counseling Provided: KATH was advised that quitting smoking is the single most important factor to protect the health of themselves and their family. Discussed the benefits of quitting smoking with patient. Encouraged patient to quit smoking and provided Cessation assistance materials and resources. Tobacco Use: Cigarette, Chewing Tobacco and Nicotine Years smoked: 20 Are you interested in quitting?: Yes Would you like additional Smoking Cessation Counseling?: No Immunization / Flu Flu Vaccine in the Last 12 Months: No Flu Vaccine Exclusion Criteria: No Exclusion Criteria Past Medical History Past Medical History CARDIAC: Positive Hypertension; Negative Cardiac Disorders or Congestive Heart Failure RESPIRATORY: Negative Chronic Obstructive Pulmonary Disease (COPD) or Asthma GENITOURINARY: Negative Renal Disease ENDOCRINE: Negative Diabetes Mellitus Type 1 or Diabetes Mellitus Type 2 HEMATOLOGIC: Negative Sickle Cell Disease Family History FAMILY HISTORY: Negative Family Respiratory Disorders, Family Cardiac Disorders or Family Gastrointestinal Problems Social History SMOKING STATUS: Smoking status: Heavy (> 1 pack/day) ALCOHOL: Alcohol Intake: Current ALCOHOL FREQUENCY: Alcohol Intake Frequency: holidays/special occasions only HOUSING: Housing: House LIVES WITH: Lives With: Family Patient Portal Questionaires PHQ-9 PHQ-2 Over the last 2 weeks, how often have you been bothered by any of the following problems? 1. Little interest or pleasure in doing things: not at all 2. Feeling down, depressed, or hopeless: not at all Total score: 0 PHQ-9 3. Trouble falling or staying asleep, or sleeping too much: Not at all 4. Feeling tired or having little energy: Not at all 5. Poor appetite or overeating: Not at all 6. Feeling bad about yourself - or that you are a failure or have let yourself or your family down: Not at all 7. Trouble concentrating on things, such as reading the newspaper or watching television: Not at all 8. Moving or speaking so slowly that other people could have noticed? - Or the opposite - being so fidgety or restless that you have been moving around a lot more than usual: not at all 9. Thoughts that you would be better off or of hurting yourself in some way: Not at all Total score: 0 If you checked off any problems, how difficult have these problems made it for you to do your work, take care of things at home, or get along with other people?: not difficult at all Source: Developed by Drs. Jacky Villasenor, Julianna Butt, Otoniel Evangelista and colleagues, with an educational milena from [employer]. Depression screen completed yes Social History Living Situation History Housing: House Tobacco History Smoking Status: Heavy (> 1 pack/day) Alcohol History Alcohol Intake: Current Alcohol Intake Frequency: holidays/special occasions only Domestic Abuse History Do You Feel Safe at Home: Yes Review of Systems Report any current symptoms Only answer those that you have currently: Past Medical History Past Medical History Have you ever been diagnosed with any of the following: Cardiology Problems Congestive Heart Failure: No Hypertension: Yes Respiratory Problems Chronic Obstructive Pulmonary Disease (COPD): No Asthma: No Genital/Urinary Problems Renal Disease: No Endocrine Problems Diabetes Mellitus Type 1: No Diabetes Mellitus Type 2: No Blood Problems Sickle Cell Disease: No History of Present Illness HPI Narrative Patient is a 64-year-old male, past medical history of hypertension, tobacco use, has been following up with [facility] and wound care clinic for chronic wound and swelling left lower extremity, the patient has wounds on the left foot lateral aspect, followed by wound care clinic, workup initiated for possible peripheral arterial disease, wound debridements done, patient is pending follow-up appointment with vascular surgery, pending arterial Doppler ultrasound ordered by wound care clinic. Patient was denied MRI of the foot to rule out osteomyelitis, pending authorization. Of note, patient has been treated for cellulitis of the left lower extremity with antibiotics multiple times during ER visits and outpatient clinic visits, totaling over 4 weeks. 12/26/2024 patient seen for follow-up, had recent appointments at wound care clinic, pending x-ray 3 view of the left lower extremity, MRI was denied to rule out pneumonitis. Finished antibiotics, denied fever, but still has persistent swelling and pitting edema up to the midshin bilateral lower extremities, worse on the left side. Patient is pending duplex arterial ultrasound and vascular surgery appointment in the coming weeks. Ran out of antihypertensive medication, noted to be hypertensive, will refill meds. 01/23/2025: Patient here for follow-up at the [facility] is doing much better in regards to blood pressure control currently here in the office is 123/71, states improvement in previous symptoms is status post angioplasty at [facility] for peripheral vascular disease. He does state that he is struggling with smoking cessation at this time is currently trying nicotine patches and nicotine gum, but is also smoking cigarettes he would like to continue trying nicotine patches and gum, does not want to try smoking cessation medications as he does not like pills. Is requesting refills on his medications. Will follow-up in 1 [address] Sun Objective/Exam Narrative Physical exam: Physical Exam General: Awake and in no acute distress. Conversational and non-toxic appearing. Neurologic: Alert and oriented x3, no gross neurological deficit, and patient able to move all 4 extremities. Extremities: Left lower extremities covered by dressing, which is clean and dry. CVS: S1 and S2 heard, faint systolic murmur grade 2/6 Respiratory: Bronchial breathing pattern but no added crackles or wheezing Assessment & Plan Diagnosis / Problem List (1) Left foot pain: Status: Acute Plan: continue with wound care per documentation is improving (2) Hypertension: Status: Acute Qualifiers: Hypertension type: primary hypertension Qualified Code(s): I10 - Essential (primary) hypertension Plan: BP in the office 123/71, continue current anti-hypertensive regimen (3) Smoking addiction: Status: Chronic Plan: continue with nicotine gum and patches, patient however struggling with smoking cessation, does not want more pills, can reassess in next appointment Office Procedures [facility] Level of Care Nursing/Assessment Patient Status: Established Patient Nursing Assessment/Reassessment: BP Monitoring, Medication Reconciliation, Update PMH in EMR and Vital Signs Coordination of Care: Complex Care/Chronic Disease 5 or more, Education Complex Pt/Fam, Consent,records obtained, informed consent, Lab and Imaging orders and Staff clarify orders Established Patient Charge Established Patient Point Assignment: 130 Established Patient Point Charge: EP Level 4 (120-155) TB Screening LTBI Screening: Has patient traveled, was born, or resided for at least 1 month, or frequent border crossing into a country with an elevated TB rate: No Immunosuppression, current or planned (HIV, organ transplant, treated with biologic agents, steroids, or other immunosuppression medication): No Close contact to someone with infectious TB disease during lifetime: No Homelessness or incarceration, current or past: No TB testing indicated at this time (at least 1 yes above): No
== END 2025-01-23 10:29 | disposition home or self-care (01) ==
LOC: HODAHC 10:01
PROVIDERS: Supervising Provider Internal Medicine; Visit Provider Student in an Organized Health Care Education/Training Program
DX: M79.672 Pain in left foot (principal); I10 Essential (primary) hypertension; F17.210 Nicotine dependence, cigarettes, uncomplicated
CPT/HCPCS: 99214; G0463

== ENCOUNTER → 2025-01-28 | Outpatient (CLI) | payer MEDICAID, SELFPAY | END | disposition home or self-care (01) | PROVIDERS: PCP Student in an Organized Health Care Education/Training Program; Referring Provider Student in an Organized Health Care Education/Training Program; Visit Provider Student in an Organized Health Care Education/Training Program | DX: I96 Gangrene, not elsewhere classified (principal); L97.522 Non-pressure chronic ulcer of other part of left foot with fat layer exposed; L97.429 Non-pressure chronic ulcer of left heel and midfoot with unspecified severity; N18.30 Chronic kidney disease, stage 3 unspecified; D64.9 Anemia, unspecified; M19.09 Primary osteoarthritis, other specified site; R60.0 Localized edema; Z79.4 Long term (current) use of insulin; F17.200 Nicotine dependence, unspecified, uncomplicated | CPT/HCPCS: 97597; 97598 ×2; A9270 ==

== ENCOUNTER → 2025-02-04 | Outpatient (CLI) | payer MEDICAID, SELFPAY | END | disposition home or self-care (01) | LOC: SWHD 10:54 | PROVIDERS: PCP Student in an Organized Health Care Education/Training Program; Referring Provider Student in an Organized Health Care Education/Training Program; Visit Provider Surgery | DX: I96 Gangrene, not elsewhere classified (principal); L97.522 Non-pressure chronic ulcer of other part of left foot with fat layer exposed; L97.422 Non-pressure chronic ulcer of left heel and midfoot with fat layer exposed; N18.30 Chronic kidney disease, stage 3 unspecified; D64.9 Anemia, unspecified; M19.09 Primary osteoarthritis, other specified site; R60.0 Localized edema; Z79.4 Long term (current) use of insulin; F17.200 Nicotine dependence, unspecified, uncomplicated | CPT/HCPCS: 11042; 11045; A9270 ==

== ENCOUNTER → 2025-02-11 | Outpatient (CLI) | payer MEDICAID, SELFPAY | END | disposition home or self-care (01) | PROVIDERS: PCP Student in an Organized Health Care Education/Training Program; Referring Provider Student in an Organized Health Care Education/Training Program; Visit Provider Surgery | DX: I96 Gangrene, not elsewhere classified (principal); L97.522 Non-pressure chronic ulcer of other part of left foot with fat layer exposed; L97.422 Non-pressure chronic ulcer of left heel and midfoot with fat layer exposed; N18.30 Chronic kidney disease, stage 3 unspecified; D64.9 Anemia, unspecified; M19.09 Primary osteoarthritis, other specified site; R60.0 Localized edema; Z79.4 Long term (current) use of insulin; F17.200 Nicotine dependence, unspecified, uncomplicated; G89.18 Other acute postprocedural pain | CPT/HCPCS: 11042; 11045; A9270 ==

== ENCOUNTER → 2025-02-18 | Outpatient (CLI) | payer MEDICAID, SELFPAY | END | disposition home or self-care (01) | PROVIDERS: PCP Student in an Organized Health Care Education/Training Program; Referring Provider Student in an Organized Health Care Education/Training Program; Visit Provider Student in an Organized Health Care Education/Training Program | DX: I96 Gangrene, not elsewhere classified (principal); L97.522 Non-pressure chronic ulcer of other part of left foot with fat layer exposed; L97.422 Non-pressure chronic ulcer of left heel and midfoot with fat layer exposed; N18.30 Chronic kidney disease, stage 3 unspecified; D64.9 Anemia, unspecified; M19.09 Primary osteoarthritis, other specified site; R60.0 Localized edema; Z79.4 Long term (current) use of insulin; F17.200 Nicotine dependence, unspecified, uncomplicated; G89.18 Other acute postprocedural pain | CPT/HCPCS: 97597; 17250; A9270 ==

== ENCOUNTER → 2025-02-25 | Outpatient (CLI) | payer MEDICAID, SELFPAY | END | disposition home or self-care (01) | PROVIDERS: PCP Student in an Organized Health Care Education/Training Program; Referring Provider Student in an Organized Health Care Education/Training Program; Visit Provider Student in an Organized Health Care Education/Training Program | DX: I96 Gangrene, not elsewhere classified (principal); L97.522 Non-pressure chronic ulcer of other part of left foot with fat layer exposed; L97.422 Non-pressure chronic ulcer of left heel and midfoot with fat layer exposed; N18.30 Chronic kidney disease, stage 3 unspecified; D64.9 Anemia, unspecified; M19.09 Primary osteoarthritis, other specified site; R60.0 Localized edema; F17.200 Nicotine dependence, unspecified, uncomplicated; G89.18 Other acute postprocedural pain; Z79.4 Long term (current) use of insulin | CPT/HCPCS: 97597; A9270 ==

== ENCOUNTER → 2025-03-04 | Outpatient (CLI) | payer MEDICAID, SELFPAY | END | disposition home or self-care (01) | LOC: SWHD 09:41 | PROVIDERS: PCP Student in an Organized Health Care Education/Training Program; Referring Provider Student in an Organized Health Care Education/Training Program; Visit Provider Student in an Organized Health Care Education/Training Program | DX: I96 Gangrene, not elsewhere classified (principal); L97.522 Non-pressure chronic ulcer of other part of left foot with fat layer exposed; L97.521 Non-pressure chronic ulcer of other part of left foot limited to breakdown of skin; L97.422 Non-pressure chronic ulcer of left heel and midfoot with fat layer exposed; N18.30 Chronic kidney disease, stage 3 unspecified; D64.9 Anemia, unspecified; M19.09 Primary osteoarthritis, other specified site; R60.0 Localized edema; F17.200 Nicotine dependence, unspecified, uncomplicated; Z79.4 Long term (current) use of insulin | CPT/HCPCS: 97597; 97598; A9270 ==

== ENCOUNTER → 2025-03-11 | Outpatient (CLI) | payer MEDICAID, SELFPAY | END | disposition home or self-care (01) | LOC: SWHD 09:44 | PROVIDERS: PCP Student in an Organized Health Care Education/Training Program; Referring Provider Student in an Organized Health Care Education/Training Program; Visit Provider Student in an Organized Health Care Education/Training Program | DX: I96 Gangrene, not elsewhere classified (principal); L97.522 Non-pressure chronic ulcer of other part of left foot with fat layer exposed; L97.422 Non-pressure chronic ulcer of left heel and midfoot with fat layer exposed; N18.30 Chronic kidney disease, stage 3 unspecified; D64.9 Anemia, unspecified; M19.09 Primary osteoarthritis, other specified site; R60.0 Localized edema; F17.200 Nicotine dependence, unspecified, uncomplicated; G89.18 Other acute postprocedural pain; Z79.4 Long term (current) use of insulin | CPT/HCPCS: 11042; 11045; A9270 ==

== ENCOUNTER → 2025-03-13 | Outpatient (CLI) | payer MEDICAID, SELFPAY | END | disposition home or self-care (01) | LOC: SWHD 08:28 | PROVIDERS: PCP Student in an Organized Health Care Education/Training Program; Referring Provider Student in an Organized Health Care Education/Training Program; Visit Provider Surgery | DX: I96 Gangrene, not elsewhere classified (principal); L97.522 Non-pressure chronic ulcer of other part of left foot with fat layer exposed; L97.422 Non-pressure chronic ulcer of left heel and midfoot with fat layer exposed; N18.30 Chronic kidney disease, stage 3 unspecified; D64.9 Anemia, unspecified; M19.09 Primary osteoarthritis, other specified site; R60.0 Localized edema; F17.200 Nicotine dependence, unspecified, uncomplicated; Z79.4 Long term (current) use of insulin | CPT/HCPCS: 11042; 11045; A9270 ==

== ENCOUNTER → 2025-03-18 | Outpatient (CLI) | payer MEDICAID, SELFPAY | END | disposition home or self-care (01) | PROVIDERS: PCP Student in an Organized Health Care Education/Training Program; Referring Provider Student in an Organized Health Care Education/Training Program; Visit Provider Student in an Organized Health Care Education/Training Program | DX: I96 Gangrene, not elsewhere classified (principal); L97.522 Non-pressure chronic ulcer of other part of left foot with fat layer exposed; L97.421 Non-pressure chronic ulcer of left heel and midfoot limited to breakdown of skin; N18.30 Chronic kidney disease, stage 3 unspecified; M19.09 Primary osteoarthritis, other specified site; R60.0 Localized edema; F17.200 Nicotine dependence, unspecified, uncomplicated; G89.18 Other acute postprocedural pain; I70.245 Atherosclerosis of native arteries of left leg with ulceration of other part of foot; Z79.4 Long term (current) use of insulin | CPT/HCPCS: 11042; 11045; A9270 ==

== ENCOUNTER 2025-03-24 13:21 | Outpatient (AMB) | payer MEDICAID, SELFPAY ==
[2025-03-24 13:42] VITALS: BP 157/81; PULSE 93; RESP 19; TEMP 36.7; O2SAT 95; BMI 26.6
--- NOTE | 2025-03-24 13:42 | ACNOTE_ITS ---
Vital Signs 03/24/25 13:42 Height 1.75 m Height Method Stated Weight 81.647 kg Weight Measurement Method Standing Scale BMI 26.6 BP 157/81 H Blood Pressure Source Automatic Cuff Blood Pressure Location Right Upper Arm Position Sitting Respiration 19 Pulse 93 Pulse Source Monitor Temp 98.0 F Temp Source Temporal Artery Scan Pulse Oximetry (%) 95 Oxygen Delivery Method Room Air Allergies/Meds Allergies & Medications Allergies bee venom protein (honey bee) Allergy (Severe, Verified 01/23/25 09:54) Swelling of Lip/Tongue/Throat Fish Containing Products Allergy (Severe, Verified 01/23/25 09:54) Swelling of Lip/Tongue/Throat shellfish derived Allergy (Severe, Verified 01/23/25 09:54) Swelling of Lip/Tongue/Throat MA Intake Visit Data Collection New Patient or Established: Established Patient (seen at [facility] within 3 years) Reason for Visit:: FOLLOW UP Pain Present Currently: Yes Pain Location: Foot Smoking Pipe Coater Required: No PCP or OBGYN visit in last 3 months: Yes Date of Last PCP or OBGYN visit: 01/23/25 Do You Feel Safe at Home: Yes Authorities Contacted: N/A Smoking Status Smoking Status: Heavy (> 1 pack/day) Cessation Counseling Provided: KATH was advised that quitting smoking is the single most important factor to protect the health of themselves and their family. Discussed the benefits of quitting smoking with patient. Encouraged patient to quit smoking and provided Cessation assistance materials and resources. Tobacco Use: Cigarette Years smoked: 20 Are you interested in quitting?: Yes Would you like additional Smoking Cessation Counseling?: No Immunization / Flu Flu Vaccine in the Last 12 Months: Yes Flu Vaccine Exclusion Criteria: Already Received Past Medical History Past Medical History CARDIAC: Positive Hypertension; Negative Cardiac Disorders or Congestive Heart Failure RESPIRATORY: Negative Chronic Obstructive Pulmonary Disease (COPD) or Asthma GENITOURINARY: Negative Renal Disease ENDOCRINE: Negative Diabetes Mellitus Type 1 or Diabetes Mellitus Type 2 HEMATOLOGIC: Negative Sickle Cell Disease Family History FAMILY HISTORY: Negative Family Respiratory Disorders, Family Cardiac Disorders or Family Gastrointestinal Problems Social History SMOKING STATUS: Smoking status: Heavy (> 1 pack/day) ALCOHOL: Alcohol Intake: Current ALCOHOL FREQUENCY: Alcohol Intake Frequency: holidays/special occasions only HOUSING: Housing: House LIVES WITH: Lives With: Family Patient Portal Questionaires PHQ-9 PHQ-2 Over the last 2 weeks, how often have you been bothered by any of the following problems? 1. Little interest or pleasure in doing things: not at all PHQ-9 8. Moving or speaking so slowly that other people could have noticed? - Or the opposite - being so fidgety or restless that you have been moving around a lot more than usual: not at all Source: Developed by Drs. Jacky Villasenor, Julianna Butt, Otoniel Evangelista and colleagues, with an educational milena from [employer]. Social History Living Situation History Housing: House Tobacco History Smoking Status: Heavy (> 1 pack/day) Alcohol History Alcohol Intake: Current Alcohol Intake Frequency: holidays/special occasions only Domestic Abuse History Do You Feel Safe at Home: Yes Review of Systems Report any current symptoms Only answer those that you have currently: Past Medical History Past Medical History Have you ever been diagnosed with any of the following: Cardiology Problems Congestive Heart Failure: No Hypertension: Yes Respiratory Problems Chronic Obstructive Pulmonary Disease (COPD): No Asthma: No Genital/Urinary Problems Renal Disease: No Endocrine Problems Diabetes Mellitus Type 1: No Diabetes Mellitus Type 2: No Blood Problems Sickle Cell Disease: No History of Present Illness HPI Narrative Patient is a 64-year-old male, past medical history of hypertension, tobacco use, has been following up with [facility] and wound care clinic for chronic wound and swelling left lower extremity, the patient has wounds on the left foot lateral aspect, followed by wound care clinic, workup initiated for possible peripheral arterial disease, wound debridements done, patient is pending follow-up appointment with vascular surgery, pending arterial Doppler ultrasound ordered by wound care clinic. Patient was denied MRI of the foot to rule out osteomyelitis, pending authorization. Of note, patient has been treated for cellulitis of the left lower extremity with antibiotics multiple times during ER visits and outpatient clinic visits, totaling over 4 weeks. 12/26/2024 patient seen for follow-up, had recent appointments at wound care clinic, pending x-ray 3 view of the left lower extremity, MRI was denied to rule out pneumonitis. Finished antibiotics, denied fever, but still has persistent swelling and pitting edema up to the midshin bilateral lower extremities, worse on the left side. Patient is pending duplex arterial ultrasound and vascular alfredo rgery appointment in the coming weeks. Ran out of antihypertensive medication, noted to be hypertensive, will refill meds. 01/23/2025: Patient here for follow-up at the [facility] is doing much better in regards to blood pressure control currently here in the office is 123/71, states improvement in previous symptoms is status post angioplasty at [facility] for peripheral vascular disease. He does state that he is struggling with smoking cessation at this time is currently trying nicotine patches and nicotine gum, but is also smoking cigarettes he would like to continue trying nicotine patches and gum, does not want to try smoking cessation medications as he does not like pills. Is requesting refills on his medications. Will follow- up in 1 to [address] 03/24/2025 Pt is seen for followup. continued improvement in wound healing is noted. Pt had angioplasty by Dr Bailey in [place], and is followed up by wound care, He did develop a new superficial dorsal ulcer on his left foot after a lidocaine patch scraped off skin uponn removal, wound care following. no pus discharge or bleeding is noted. Pt is continuing to make progress towards quitting smoking, finds nicotine patches not really useful, started using e-cigg prop which has been helpful. Resent prescription for antihypertensiove medications as patient ran out of meds. Objective/Exam Narrative Physical exam: Physical Exam General: Awake and in no acute distress. Conversational and non-toxic appearing. Neurologic: Alert and oriented x3, no gross neurological deficit, and patient able to move all 4 extremities. Extremities: Left lower extremities covered by dressing, which is clean and dry. CVS: S1 and S2 heard, faint systolic murmur grade 2/6 Respiratory: Bronchial breathing pattern but no added crackles or wheezing Assessment & Plan Diagnosis / Problem List (1) Hypertension: Status: Acute Qualifiers: Hypertension type: primary hypertension Qualified Code(s): I10 - Essential (primary) hypertension Assessment & Plan: History of hypertension, but noncompliance with medications, stressed importance of daily medications for high blood pressure to reduce risk of adverse cardiovascular events and stroke. Plan: ? Losartan hydrochlorothiazide 50/12.5 mg daily ? Nifedipine ER 30 mg daily (2) Cellulitis and abscess of foot: Status: Acute Assessment & Plan: Pt is feeling a lot better following wound care clinic visit, s/p debridement for wounds on medial and lateral aspect of left foot. 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 Completed antibiotics. Plan: ? Awaiting appointment for MRI left foot to rule out osteomyelitis as well as evaluate extent of soft tissue infection. ? Completed antibiotics, patient is afebrile, no active discharge from wound reported, will hold off on further antibiotic treatment. Likely poor healing secondary to peripheral arterial disease. ? Patient has pending appointment with vascular surgeon in the coming weeks, also pending arterial duplex ultrasound, Which patient reported was ordered by wound care. ? Was given [place] 5/325 and gabapentin 100 mg 3 times daily for pain, patient reports not taking [place] does not help, and reports gabapentin makes him loopy, so he will skip a dose before driving. (3) Smoking addiction: Status: Chronic Assessment & Plan: Counselled regarding medication compliance and smoking cessation. The patient bob s been using nicotine patches and cutting back on number of cigarettes smoked. One pack now lasts 2-3 days. Plan: - Continue nicotine patches (4) Onychomycosis: Status: Chronic Assessment & Plan: Bilateral foot onychomycosis present currently under treatment with terbinafine. Plan: ? Continue terbinafine for onychomycosis Orders: Orders CA echo doppler complete 03/24/25 Comprehensive Metabolic Panel 03/24/25 I10 - Essential (primary) hypertension, L03.116 - Cellulitis of left lower limb CBC 03/24/25 Office Procedures [facility] Level of Care Nursing/Assessment Patient Status: Established Patient Nursing Assessment/Reassessment: Medication Reconciliation, O2 Delivery and Vital Signs Coordination of Care: Complex Care and Chronic Disease 1-5, Consent,records obtained, informed consent, Lab and Imaging orders and Results/Orders obtained Established Patient Charge Established Patient Point Assignment: 85 Established Patient Point Charge: Level 3 (80-115)
== END 2025-03-24 14:08 | disposition home or self-care (01) ==
LOC: HODAHC 13:21
PROVIDERS: PCP Student in an Organized Health Care Education/Training Program; Referring Provider Student in an Organized Health Care Education/Training Program; Supervising Provider Internal Medicine; Visit Provider Student in an Organized Health Care Education/Training Program
DX: L03.116 Cellulitis of left lower limb (principal); F17.210 Nicotine dependence, cigarettes, uncomplicated; B35.1 Tinea unguium; I10 Essential (primary) hypertension
CPT/HCPCS: 99213; G0463

== ENCOUNTER → 2025-03-26 | Outpatient (CLI) | payer MEDICAID, SELFPAY | END | disposition home or self-care (01) | PROVIDERS: PCP Student in an Organized Health Care Education/Training Program; Referring Provider Student in an Organized Health Care Education/Training Program; Visit Provider Student in an Organized Health Care Education/Training Program | DX: I96 Gangrene, not elsewhere classified (principal); L97.522 Non-pressure chronic ulcer of other part of left foot with fat layer exposed; L97.421 Non-pressure chronic ulcer of left heel and midfoot limited to breakdown of skin; N18.30 Chronic kidney disease, stage 3 unspecified; M19.09 Primary osteoarthritis, other specified site; R60.0 Localized edema; F17.200 Nicotine dependence, unspecified, uncomplicated | CPT/HCPCS: 11042; 11045 ×2; A9270 ==

== ENCOUNTER → 2025-04-01 | Outpatient (CLI) | payer MEDICAID, SELFPAY | END | disposition home or self-care (01) | LOC: SWHD 12:49 | PROVIDERS: PCP Student in an Organized Health Care Education/Training Program; Referring Provider Student in an Organized Health Care Education/Training Program; Visit Provider Student in an Organized Health Care Education/Training Program | DX: I96 Gangrene, not elsewhere classified (principal); L97.522 Non-pressure chronic ulcer of other part of left foot with fat layer exposed; L97.421 Non-pressure chronic ulcer of left heel and midfoot limited to breakdown of skin; N18.31 Chronic kidney disease, stage 3a; M19.09 Primary osteoarthritis, other specified site; R60.0 Localized edema; F17.200 Nicotine dependence, unspecified, uncomplicated | CPT/HCPCS: 97597; 97598; A9270 ==

== ENCOUNTER → 2025-04-08 | Outpatient (CLI) | payer MEDICAID, SELFPAY | END | disposition home or self-care (01) | PROVIDERS: PCP Student in an Organized Health Care Education/Training Program; Referring Provider Student in an Organized Health Care Education/Training Program; Visit Provider Student in an Organized Health Care Education/Training Program | DX: I96 Gangrene, not elsewhere classified (principal); L97.522 Non-pressure chronic ulcer of other part of left foot with fat layer exposed; L97.421 Non-pressure chronic ulcer of left heel and midfoot limited to breakdown of skin; N18.31 Chronic kidney disease, stage 3a; M19.09 Primary osteoarthritis, other specified site; R60.0 Localized edema; F17.200 Nicotine dependence, unspecified, uncomplicated; I70.245 Atherosclerosis of native arteries of left leg with ulceration of other part of foot; G89.18 Other acute postprocedural pain | CPT/HCPCS: 97597; 97598; A9270 ==

== ENCOUNTER 2025-04-10 15:37 | Emergency (ER) | payer MEDICAID, SELFPAY ==
[2025-04-10 16:08] VITALS: BP 143/83; PULSE 89; RESP 18; TEMP 36.9; O2SAT 96; BMI 23.2
--- NOTE | 2025-04-10 16:11 | EDNOTE_ITS ---
<Statement entered by Jeri Scott MD - 04/18/25 06:26> As co-signing physician, I was present and available for consult prn. I concur with the plan and care as documented by the midlevel provider. ED Wound/Laceration-RME/HPI General Chief Complaint: General Adult/Misc Complain Stated Complaint: jessica Rivas for left foot wound Source: patient Arrival date/time: 04/10/25 15:37 64-year-old male with no known medical history presents to the emergency room w ith a chief complaint of breakthrough pain due to a wound in his left foot. Mode of arrival: ambulatory Limitations: no limitations Related Data Previous Rx's ?Medication ?Instructions ?Recorded miscellaneous medical supply #1 ea 11/17/24 (Blood Pressure Cuff) hydrocodone 5 mg-acetaminophen 325 1 tab PO BID PRN pa in #30 tabs 12/22/24 mg tablet docusate sodium 100 mg capsule 100 mg PO BID #30 caps 01/08/25 (Colace) meloxicam 15 mg tablet 15 mg PO QDAY #10 tabs 01/08 hydrocodone 5 mg-acetaminophen 325 1 tab PO BID PRN pa in #14 tabs 01/28/ mg tablet hydrocodone 5 mg-acetaminophen 325 1 tab PO BID PRN pa in #14 tabs 02/11/25 mg tablet hydrocodone 5 mg-acetaminophen 325 1 tab PO BID PRN pa in #14 tabs 02/18/25 mg tablet hydrocodone 5 mg-acetaminophen 325 1 tab PO BID PRN pa in #28 tabs 02/18/25 mg tablet hydrocodone 7.5 mg-acetaminophen 1 tab PO QDAY Arteria l ulcer - 02/25/25 325 mg tablet postprocedural pain #7 tabs losartan 50 mg-hydrochlorothiazide 1 tab PO QDAY #30 t abs 03/24/25 12.5 mg tablet nicotine 21 mg/24 hr daily 1 patch transdermal Q24H #2 8 ea 03/24/25 transdermal patch terbinafine HCl 1 % topical cream 1 applic topical BID #30 grams 03/24/25 hydrocodone 5 mg-acetaminophen 325 1 tab PO TID #42 ta bs 03/26/25 mg tablet gabapentin 300 mg capsule 300 mg PO TID #42 caps 04/08 hydrocodone 5 mg-acetaminophen 325 1 tab PO TID PRN pa in #42 tabs 04/08/25 mg tablet Allergies Allergy/AdvReac Type Severity Reaction Status Date / Time bee venom protein (honey bee) Allergy Severe Swelling Verified 04/10/25 15:40 of Lip/Tongue/Throat Fish Containing Products Allergy Severe Swelling Verified 04/10/25 15:40 of Lip/Tongue/Throat shellfish derived Allergy Severe Swelling Verified 04/10/25 15:40 of Lip/Tongue/Throat Review of Systems Review of Systems Systems Reviewed: All systems reviewed, normal except as documented Constitutional Constitutional: Reports system reviewed and no additional complaints, except as documented, Denies fatigue, Denies fever(s), Denies headache(s) and Denies weakness Eyes Eyes: Reports system reviewed and no additional complaints, except as documented, Denies blurry vision and Denies change in vision ENT Ears, Nose, Mouth, and Throat: Reports system reviewed and no additional complaints, except as documented, Denies otalgia, Denies headache(s), Denies nasal congestion, Denies throat swelling and Denies vertigo Cardiovascular Cardiovascular: Reports system reviewed and no additional complaints, except as documented, Denies chest pain, Denies dyspnea and Denies dyspnea on exertion Respiratory Respiratory: Reports system reviewed and no additional complaints, except as documented, Denies chest congestion, Denies cough, Denies dyspnea, Denies dyspnea on exertion and Denies wheezing Gastrointestinal Gastrointestinal: Reports system reviewed and no additional complaints, except as documented, Denies abdominal pain, Denies cramping, Denies nausea and Denies vomiting Genitourinary Genitourinary: Reports system reviewed and no additional complaints, except as documented, Denies dysuria and Denies hematuria Musculoskeletal Musculoskeletal: Reports system reviewed and no additional complaints, except as documented and Denies back pain Integumentary/Breasts Skin/Breast: Reports system reviewed and no additional complaints, except as documented and Reports wounds Neurologic Neurologic: Reports system reviewed and no additional complaints, except as documented, Denies confusion, Denies headache(s), Denies lack of coordination, Denies vertigo and Denies weakness Psychiatric Psychiatric: Reports system reviewed and no additional complaints, except as documented, Denies anxiety, Denies confusion, Denies depression, Denies paranoia, Denies suicidal ideation and Denies tactile hallucinations Endocrine Endocrine: Reports system reviewed and no additional complaints, except as documented and Denies fatigue Hematologic/Lymphatic Hematologic/Lymphatic: Reports system reviewed and no additional complaints, except as documented and Denies lymphadenopathy Allergic/Immunologic Allergic/Immunologic: Reports system reviewed and no additional complaints, except as documented, Denies throat swelling, Denies urticaria and Denies wheezing Past Medical History Past Medical History CARDIAC: Positive Hypertension; Negative Cardiac Disorders or Congestive Heart Failure RESPIRATORY: Negative Chronic Obstructive Pulmonary Disease (COPD) or Asthma GENITOURINARY: Negative Renal Disease ENDOCRINE: Negative Diabetes Mellitus Type 1 or Diabetes Mellitus Type 2 HEMATOLOGIC: Negative Sickle Cell Disease Family History FAMILY HISTORY: Negative Family Respiratory Disorders, Family Cardiac Disorders or Family Gastrointestinal Problems Social History SMOKING STATUS: Current every day smoker ED Exam General Limitations: Present no limitations General appearance: Present alert and in no apparent distress Head Head exam: Present atraumatic Eye Eye exam: Present normal appearance, PERRL and EOMI ENT ENT exam: Present normal exam, normal oropharynx and mucous membranes moist Neck Neck exam: Present normal inspection, full ROM and trachea midline Chest Chest inspection: Present normal inspection and symmetric chest wall rise Respiratory Respiratory exam: Present normal lung sounds bilaterally Cardiovascular Cardiovascular exam: Present regular rate, normal rhythm and normal heart sounds Abdominal Exam Abdominal exam: Present soft and normal bowel sounds Extremities Exam Extremities exam: Present normal inspection and full ROM Expanded Lower Extremity Exam Hip/Pelvis exam: Present normal inspection Upper leg exam: Present normal inspection Knee exam: Present normal inspection Lower leg exam: Present normal inspection Ankle exam: Present normal inspection Foot/toe exam: Present tenderness and swelling; Absent full ROM Gait: observed and limited by pain Back Exam Back exam: Present normal inspection and full ROM Neurological Exam Neurological exam: Present alert, oriented X3 and CN II-XII intact Psychiatric Psychiatric exam: Present normal affect and normal mood Skin Skin exam: Present warm, dry, intact and normal color Course Quality Measures none Orders Category Date Time Status HYDROcodone/APAP 10/325 [[place] 10/325] Med 04/10/25 16:10 Once 1 tab PO X1 ONE Vital Signs Vital signs: Vital Signs Temperature 98.5 F 04/10/25 16:08 Pulse Rate 89 04/10/25 16:08 Respiratory Rate 18 04/10/25 16:08 Blood Pressure 143/83 H 04/10/25 16:08 Pulse Oximetry (%) 96 04/10/25 16:08 Oxygen Delivery Method Room Air 04/10/25 16:08 Wound / Laceration MDM Narrative MDM Narrative:: 64-year-old male with no known medical history presents to the emergency room with a chief complaint of breakthrough pain due to a wound in his left foot. Patient is hemodynamically stable and in no apparent distress Physical examination shows a left lower foot wound. The patient has cellulitis and an abscess of the left leg. The patient is being seen and managed by the wound care clinic and the patient states that he has no complaints regarding his leg. Patient states he is here due to the breakthrough pain and him running out of his pain medication. Patient states he has an appointment with his primary care provider will be seeing him next week. Patient states he just wants pain medication and to be discharged. Patient was discharged and educated to follow-up with primary care provider in the next 24 to 48 hours and return to the emergency room for any evidence of worsening signs or symptoms Patient data External records reviewed:: [facility] previous records Clinical information provided by:: patient Social determinants that could affect healthcare access:: none Patient has the following chronic illnesses:: No chronic illness How is presenting disease/condition affected by chronic disease/condition?: no chronic disease Evaluation data The following diagnostics were reviewed and interpreted by me:: lab results and radiology exam(s) Lab and/or radiology exams considered but not ordered:: Labs and radiology exams considered and ordered Interpretation Summary: N/A Medications / Prescriptions Medications or Prescriptions considered but not ordered:: Medication given Medication administrations:: Medication given Consultations Consultation(s) initiated? (list below): No Diagnosis Wound Differential Diagnosis: other (Breakthrough pain/abrasion/abscess) Most likely diagnosis given after review of the tests above:: Breakthrough pain Admission Indicated Admission indicated?: not indicated Admission Request Was there a request for admission?: No Disposition Plan Disposition Plan: Discharge Discharge Attestation Discharge Attestation: The patient and all family members were given an opportunity to ask questions and understood the discharge instructions. Discharge instructions specifically effects, indications for sooner follow up or return to the emergency department, and the expected course of current diagnosis. Patient condition: Stable Discharge Plan Plan Patient Disposition: HOME (Self Care) Discharge Disposition comment: Stable Prescriptions/Referrals Prescriptions/Med Rec: No Action losartan-hydrochlorothiazide 50-12.5 mg tablet 1 tab PO QDAY Qty: 30 2RF nicotine 21 mg/24 hr patch 24 hour 1 patch transdermal Q24H Qty: 28 2RF terbinafine HCl 1 % cream 1 applic topical BID Qty: 30 2RF (DME) Blood Pressure Cuff Misc See Rx Instructions .Route Qty: 1 0RF Rx Instructions: As directed meloxicam 15 mg tablet 15 mg PO QDAY Qty: 10 0RF docusate sodium [Colace] 100 mg capsule 100 mg PO BID Qty: 30 0RF hydrocodone-acetaminophen 5-325 mg tablet 1 tab PO BID MDD 10mg hydrocodone PRN (Reason: pain) Qty: 14 0RF hydrocodone-acetaminophen 5-325 mg tablet 1 tab PO BID MDD 2 PRN (Reason: pain) Qty: 14 0RF hydrocodone-acetaminophen 5-325 mg tablet 1 tab PO BID MDD 10mg hydrocodone PRN (Reason: pain) Qty: 14 0RF hydrocodone-acetaminophen 5-325 mg tablet 1 tab PO BID MDD 10mg hydrocodone PRN (Reason: pain) Qty: 28 0RF hydrocodone-acetaminophen 7.5-325 mg tablet 1 tab PO QDAY MDD 7.5mg hydrocodone Qty: 7 0RF hydrocodone-acetaminophen 5-325 mg tablet 1 tab PO TID MDD 15mg hydrocodone Qty: 42 0RF hydrocodone-acetaminophen 5-325 mg tablet 1 tab PO BID MDD 2 PRN (Reason: pain) Qty: 30 0RF gabapentin 300 mg capsule 300 mg PO TID Qty: 42 0RF hydrocodone-acetaminophen 5-325 mg tablet 1 tab PO TID MDD 15mg hydrocodone PRN (Reason: pain) Qty: 42 0RF Problem List Clinical Impression: Breakthrough pain Patient/Caregiver Discharge Instructions Education Materials: ED Pain, Acute, Uncertain Cause Additional Instructions: Please follow-up with your primary care provider in the next 24 to 48 hours Medication was given to you. Please follow-up with your primary care provider for refill of this medication For any evidence of worsening signs or symptoms return to the emergency room immediately Print Language: Canadian Stand Alone Forms: Sara Award Info., Patient Portal Info Letter PA/PORCELAIN MIXER Supervising Physician PA/DEJAN Supervising Physician: Dr. SCOTT
== END 2025-04-10 17:28 | disposition home or self-care (01) ==
PROVIDERS: Emergency Provider Emergency Medicine
DX: G89.18 Other acute postprocedural pain (principal)
CPT/HCPCS: 99283; A9270

== ENCOUNTER → 2025-04-15 | Outpatient (CLI) | payer MEDICAID, SELFPAY | END | disposition home or self-care (01) | PROVIDERS: PCP Student in an Organized Health Care Education/Training Program; Referring Provider Student in an Organized Health Care Education/Training Program; Visit Provider Student in an Organized Health Care Education/Training Program | DX: I96 Gangrene, not elsewhere classified (principal); L97.522 Non-pressure chronic ulcer of other part of left foot with fat layer exposed; M19.09 Primary osteoarthritis, other specified site; R60.0 Localized edema; N18.31 Chronic kidney disease, stage 3a; F17.200 Nicotine dependence, unspecified, uncomplicated | CPT/HCPCS: 17250; A9270 ==

== ENCOUNTER → 2025-04-22 | Outpatient (CLI) | payer MEDICAID, SELFPAY | END | disposition home or self-care (01) | PROVIDERS: PCP Student in an Organized Health Care Education/Training Program; Referring Provider Student in an Organized Health Care Education/Training Program; Visit Provider Student in an Organized Health Care Education/Training Program | DX: I96 Gangrene, not elsewhere classified (principal); L97.522 Non-pressure chronic ulcer of other part of left foot with fat layer exposed; M19.09 Primary osteoarthritis, other specified site; R60.0 Localized edema; F17.200 Nicotine dependence, unspecified, uncomplicated; N18.31 Chronic kidney disease, stage 3a | CPT/HCPCS: 17250; A9270 ==

== ENCOUNTER → 2025-04-24 | Outpatient (CLI) | payer MEDICAID, SELFPAY ==
[2025-04-22 15:38] LABS: Blood Urea Nitrogen 12 mg/dL (9-23); Creatinine (Component) 1.0 mg/dL (0.6-1.3); eGFR > 60 See Note
--- NOTE | 2025-04-24 13:30 | XR_ITS ---
Examination: CTA abdominal aorta iliofemoral runoff. 2-D sagittal coronal reconstructions. 3-D reconstructions, vascular Exam date and time: April 24 2025 1358 hours Technique: Multiple CTA images of the abdominal aorta iliofemoral runoff arterial vessels, 2.0 mm slice thickness, post intravenous administration 100 cc [id number] 2-D sagittal coronal reconstructions. 3-D reconstructions, vascular 3-D postprocessing, including vascular maximum intensity projection images, 3-D volume rendering Low dose protocols were performed. One or more of the following dose reduction techniques were used; automated exposure control, adjustment of the mA and/or KV according to patient size, use of iterative reconstruction technique. Findings: No focal liver or splenic lesion Contracted gallbladder No pancreatic or adrenal mass. No hydronephrosis. No bowel obstruction. Colonic diverticulosis, no diverticulitis No pericecal inflammatory change. Urinary bladder wall thickening up to 8 mm. Transverse prostate dimension 4.4 cm Abdominal aortic calcification no aneurysmal dilatation Significant chronic thrombus in the aorta for instance axial image 91 No significant stenoses celiac superior mesenteric or renal artery origins No critical stenoses common iliac and external iliac arteries on the right 80-90% stenosis left external iliac artery axial image 192 Occlusion distal right superficial femoral artery over a distance of 8.9 cm with reconstitution distally Popliteal artery fills, occlusion proximal anterior tibial artery Main continuation trunk has multiple stenoses Posterior tibial artery fills to the ankle AP dimension left common femoral artery 12 mm Left superficial femoral artery intact as well as popliteal artery Opacification is reduced in the trifurcation vessels, which appear to fill to the ankle IMPRESSION: 80-90% short segment stenosis left external iliac artery 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
== END | disposition home or self-care (01) ==
LOC: CCTX 13:36
PROVIDERS: PCP Student in an Organized Health Care Education/Training Program; Referring Provider Student in an Organized Health Care Education/Training Program; Visit Provider Student in an Organized Health Care Education/Training Program
DX: I70.208 Unspecified atherosclerosis of native arteries of extremities, other extremity (principal); I70.90 Unspecified atherosclerosis; I77.1 Stricture of artery
CPT/HCPCS: 36415; 75635; 82565; 84520; A4649; Q9967

== ENCOUNTER → 2025-04-29 | Outpatient (CLI) | payer MEDICAID, SELFPAY | END | disposition home or self-care (01) | PROVIDERS: PCP Student in an Organized Health Care Education/Training Program; Referring Provider Student in an Organized Health Care Education/Training Program; Visit Provider Student in an Organized Health Care Education/Training Program | DX: I96 Gangrene, not elsewhere classified (principal); L97.522 Non-pressure chronic ulcer of other part of left foot with fat layer exposed; M19.09 Primary osteoarthritis, other specified site; R60.0 Localized edema; F17.200 Nicotine dependence, unspecified, uncomplicated; N18.31 Chronic kidney disease, stage 3a; G89.18 Other acute postprocedural pain; I70.245 Atherosclerosis of native arteries of left leg with ulceration of other part of foot | CPT/HCPCS: 97597; A9270 ==

== ENCOUNTER → 2025-05-06 | Outpatient (CLI) | payer MEDICAID, SELFPAY | END | disposition home or self-care (01) | PROVIDERS: PCP Student in an Organized Health Care Education/Training Program; Referring Provider Student in an Organized Health Care Education/Training Program; Visit Provider Student in an Organized Health Care Education/Training Program | DX: I96 Gangrene, not elsewhere classified (principal); L97.522 Non-pressure chronic ulcer of other part of left foot with fat layer exposed; M19.09 Primary osteoarthritis, other specified site; R60.0 Localized edema; F17.200 Nicotine dependence, unspecified, uncomplicated; N18.31 Chronic kidney disease, stage 3a; I70.245 Atherosclerosis of native arteries of left leg with ulceration of other part of foot; I83.003 Varicose veins of unspecified lower extremity with ulcer of ankle | CPT/HCPCS: 97597; 97598; A9270 ==

== ENCOUNTER → 2025-05-13 | Outpatient (CLI) | payer MEDICAID, SELFPAY | END | disposition home or self-care (01) | LOC: SWHD 09:49 | PROVIDERS: PCP Student in an Organized Health Care Education/Training Program; Referring Provider Student in an Organized Health Care Education/Training Program; Visit Provider Student in an Organized Health Care Education/Training Program | DX: I96 Gangrene, not elsewhere classified (principal); L97.522 Non-pressure chronic ulcer of other part of left foot with fat layer exposed; M19.09 Primary osteoarthritis, other specified site; R60.0 Localized edema; F17.200 Nicotine dependence, unspecified, uncomplicated; N18.31 Chronic kidney disease, stage 3a; I70.245 Atherosclerosis of native arteries of left leg with ulceration of other part of foot; I83.003 Varicose veins of unspecified lower extremity with ulcer of ankle | CPT/HCPCS: 97597; 97598; A9270 ==

== ENCOUNTER → 2025-05-20 | Outpatient (CLI) | payer MEDICAID, SELFPAY | END | disposition home or self-care (01) | LOC: SWHD 12:52 | PROVIDERS: PCP Student in an Organized Health Care Education/Training Program; Referring Provider Student in an Organized Health Care Education/Training Program; Visit Provider Student in an Organized Health Care Education/Training Program | DX: I96 Gangrene, not elsewhere classified (principal); L97.522 Non-pressure chronic ulcer of other part of left foot with fat layer exposed; M19.09 Primary osteoarthritis, other specified site; R60.0 Localized edema; F17.200 Nicotine dependence, unspecified, uncomplicated; N18.31 Chronic kidney disease, stage 3a; I70.245 Atherosclerosis of native arteries of left leg with ulceration of other part of foot; I83.003 Varicose veins of unspecified lower extremity with ulcer of ankle | CPT/HCPCS: 97597; A9270 ==

== ENCOUNTER → 2025-05-27 | Outpatient (CLI) | payer MEDICAID, SELFPAY | END | disposition home or self-care (01) | LOC: SWHD 09:37 | PROVIDERS: PCP Student in an Organized Health Care Education/Training Program; Referring Provider Student in an Organized Health Care Education/Training Program; Visit Provider Student in an Organized Health Care Education/Training Program | DX: I96 Gangrene, not elsewhere classified (principal); L97.522 Non-pressure chronic ulcer of other part of left foot with fat layer exposed; M19.09 Primary osteoarthritis, other specified site; R60.0 Localized edema; F17.200 Nicotine dependence, unspecified, uncomplicated; N18.31 Chronic kidney disease, stage 3a; I70.245 Atherosclerosis of native arteries of left leg with ulceration of other part of foot; I83.003 Varicose veins of unspecified lower extremity with ulcer of ankle | CPT/HCPCS: 97597; A9270 ==

== ENCOUNTER → 2025-06-03 | Outpatient (CLI) | payer MEDICAID, SELFPAY | END | disposition home or self-care (01) | LOC: SWHD 09:51 | PROVIDERS: PCP Student in an Organized Health Care Education/Training Program; Referring Provider Student in an Organized Health Care Education/Training Program; Visit Provider Student in an Organized Health Care Education/Training Program | DX: I96 Gangrene, not elsewhere classified (principal); L97.522 Non-pressure chronic ulcer of other part of left foot with fat layer exposed; M19.09 Primary osteoarthritis, other specified site; R60.0 Localized edema; F17.200 Nicotine dependence, unspecified, uncomplicated; N18.31 Chronic kidney disease, stage 3a; I70.245 Atherosclerosis of native arteries of left leg with ulceration of other part of foot; I83.003 Varicose veins of unspecified lower extremity with ulcer of ankle | CPT/HCPCS: 97597; A9270 ==

== ENCOUNTER → 2025-06-10 | Outpatient (CLI) | payer MEDICAID, SELFPAY | END | disposition home or self-care (01) | LOC: SWHD 09:49 | PROVIDERS: PCP Student in an Organized Health Care Education/Training Program; Referring Provider Student in an Organized Health Care Education/Training Program; Visit Provider Student in an Organized Health Care Education/Training Program | DX: I96 Gangrene, not elsewhere classified (principal); L97.522 Non-pressure chronic ulcer of other part of left foot with fat layer exposed; M19.09 Primary osteoarthritis, other specified site; R60.0 Localized edema; F17.200 Nicotine dependence, unspecified, uncomplicated; N18.31 Chronic kidney disease, stage 3a; I70.245 Atherosclerosis of native arteries of left leg with ulceration of other part of foot; I83.003 Varicose veins of unspecified lower extremity with ulcer of ankle | CPT/HCPCS: 29580; A9270 ==

== ENCOUNTER → 2025-06-17 | Outpatient (CLI) | payer MEDICAID, SELFPAY | END | disposition home or self-care (01) | LOC: SWHD 09:45 | PROVIDERS: PCP Student in an Organized Health Care Education/Training Program; Referring Provider Student in an Organized Health Care Education/Training Program; Visit Provider Student in an Organized Health Care Education/Training Program | DX: I96 Gangrene, not elsewhere classified (principal); L97.522 Non-pressure chronic ulcer of other part of left foot with fat layer exposed; M19.09 Primary osteoarthritis, other specified site; R60.0 Localized edema; F17.200 Nicotine dependence, unspecified, uncomplicated; N18.31 Chronic kidney disease, stage 3a; I70.245 Atherosclerosis of native arteries of left leg with ulceration of other part of foot; I83.003 Varicose veins of unspecified lower extremity with ulcer of ankle | CPT/HCPCS: 29580 ==

== ENCOUNTER → 2025-06-24 | Outpatient (CLI) | payer MEDICAID, SELFPAY | END | disposition home or self-care (01) | LOC: SWHD 09:53 | PROVIDERS: PCP Student in an Organized Health Care Education/Training Program; Referring Provider Student in an Organized Health Care Education/Training Program; Visit Provider Student in an Organized Health Care Education/Training Program | DX: I96 Gangrene, not elsewhere classified (principal); L97.522 Non-pressure chronic ulcer of other part of left foot with fat layer exposed; M19.09 Primary osteoarthritis, other specified site; R60.0 Localized edema; F17.200 Nicotine dependence, unspecified, uncomplicated; I70.245 Atherosclerosis of native arteries of left leg with ulceration of other part of foot; I83.003 Varicose veins of unspecified lower extremity with ulcer of ankle | CPT/HCPCS: 29580; A9270 ==

== ENCOUNTER → 2025-07-01 | Outpatient (CLI) | payer MEDICAID, SELFPAY | END | disposition home or self-care (01) | LOC: SWHD 10:13 | PROVIDERS: PCP Student in an Organized Health Care Education/Training Program; Referring Provider Student in an Organized Health Care Education/Training Program; Visit Provider Student in an Organized Health Care Education/Training Program | DX: I96 Gangrene, not elsewhere classified (principal); L97.522 Non-pressure chronic ulcer of other part of left foot with fat layer exposed; M19.09 Primary osteoarthritis, other specified site; R60.0 Localized edema; F17.200 Nicotine dependence, unspecified, uncomplicated; I70.245 Atherosclerosis of native arteries of left leg with ulceration of other part of foot; I83.003 Varicose veins of unspecified lower extremity with ulcer of ankle | CPT/HCPCS: 29580 ==

== ENCOUNTER → 2025-07-08 | Outpatient (CLI) | payer MEDICAID, SELFPAY | END | disposition home or self-care (01) | LOC: SWHD 08:09 | PROVIDERS: PCP Student in an Organized Health Care Education/Training Program; Referring Provider Student in an Organized Health Care Education/Training Program; Visit Provider Student in an Organized Health Care Education/Training Program | DX: I96 Gangrene, not elsewhere classified (principal); L97.522 Non-pressure chronic ulcer of other part of left foot with fat layer exposed; M19.09 Primary osteoarthritis, other specified site; R60.0 Localized edema; F17.200 Nicotine dependence, unspecified, uncomplicated; I70.245 Atherosclerosis of native arteries of left leg with ulceration of other part of foot; I83.003 Varicose veins of unspecified lower extremity with ulcer of ankle | CPT/HCPCS: 99212; G0463 ==

== ENCOUNTER → 2025-07-15 | Outpatient (CLI) | payer MEDICAID, SELFPAY | END | disposition home or self-care (01) | LOC: SWHD 08:08 | PROVIDERS: PCP Student in an Organized Health Care Education/Training Program; Referring Provider Student in an Organized Health Care Education/Training Program; Visit Provider Student in an Organized Health Care Education/Training Program | DX: I96 Gangrene, not elsewhere classified (principal); L97.522 Non-pressure chronic ulcer of other part of left foot with fat layer exposed; M19.09 Primary osteoarthritis, other specified site; R60.0 Localized edema; F17.200 Nicotine dependence, unspecified, uncomplicated; I70.245 Atherosclerosis of native arteries of left leg with ulceration of other part of foot; I83.003 Varicose veins of unspecified lower extremity with ulcer of ankle | CPT/HCPCS: 29581 ==

== ENCOUNTER → 2025-07-22 | Outpatient (CLI) | payer MEDICAID, SELFPAY | END | disposition home or self-care (01) | LOC: SWHD 08:16 | PROVIDERS: PCP Student in an Organized Health Care Education/Training Program; Referring Provider Student in an Organized Health Care Education/Training Program; Visit Provider Student in an Organized Health Care Education/Training Program | DX: I96 Gangrene, not elsewhere classified (principal); L97.521 Non-pressure chronic ulcer of other part of left foot limited to breakdown of skin; M19.09 Primary osteoarthritis, other specified site; R60.0 Localized edema; F17.200 Nicotine dependence, unspecified, uncomplicated; I70.245 Atherosclerosis of native arteries of left leg with ulceration of other part of foot; I83.003 Varicose veins of unspecified lower extremity with ulcer of ankle | CPT/HCPCS: 99212; G0463 ==